=== PATIENT | male | born 1960 | race Two or more races ===

== ENCOUNTER → 2017-05-19 | Outpatient (CLI) | payer BC ==
[2017-05-19 13:40] LABS: HEPATITIS B SURFACE ANTIBODY NEGATIVE (POSITIVE)
[2017-05-19 20:15] LABS: ALBUMIN 3.8 GM/DL (3.2-5.2); ALBUMIN/GLOBULIN RATIO 0.95 (1.00-1.93); ALKALINE PHOSPHATASE 86 U/L (45-117); ALT/SGPT 112 U/L (12-78); AST/SGOT 60 U/L (7-37); BILIRUBIN,DIRECT 0.1 MG/DL (0.0-0.2); BILIRUBIN,TOTAL 0.4 MG/DL (0.2-1.0); BLOOD UREA NITROGEN 38 MG/DL (7-18); CREATININE FOR GFR 1.37 MG/DL (0.70-1.30); FERRITIN 174 NG/ML (26-388); GLOMERULAR FILTRATION RATE 56.8 (>56); PERCENT SATURATION 14.4 % (19.7-50.0); TOTAL IRON BINDING CAPACITY 438 UG/DL (250-450); TOTAL PROTEIN 7.8 GM/DL (6.4-8.2)
[2017-05-26 14:13] LABS: ALPHA 1 ANTITRYPSIN 153 mg/dL (90-200); ALPHA 2-MACROGLOBULIN 274 mg/dL (110-276); ALT 110 IU/L (0-55); APOLIPOPROTEIN A-1 178 mg/dL (101-178); FIBROSIS SCORE 0.45 (0.00-0.21); FIBROSIS STAGE F1-F2 (.); GGT 182 IU/L (0-65); HAPTOGLOBIN 58 mg/dL (34-200); HEPATITIS C QUANTITATION HCV Not Detected IU/mL (.); NECROINFLAM SCORE 0.66 (0.00-0.17); NECROINFLAMM GRADE A3-Severe activity (.); TOTAL BILIRUBIN 0.2 mg/dL (0.0-1.2)
== END ==
LOC: M LAB 08:00
DX: R94.5 Abnormal results of liver function studies (principal)
CPT/HCPCS: 84460

== ENCOUNTER → 2017-07-29 | Outpatient (REF) | payer BC ==
[2017-07-29 18:28] LABS: APPEARANCE, URINE CLEAR (CLEAR); BACTERIA, URINE AUTO NEGATIVE (NEGATIVE); BILIRUBIN, URINE AUTO NEGATIVE (NEGATIVE); BLOOD, URINE BLOOD NEGATIVE (NEGATIVE); COLOR, URINE YELLOW (YELLOW); GLUCOSE, URINE (UA) AUTO 1+ mg/dL (NEGATIVE); KETONE, URINE AUTO NEGATIVE (NEGATIVE); LEUKOCYTE ESTERASE, URINE AUTO NEGATIVE (NEGATIVE); MUCUS, URINE SMALL (NEGATIVE); NITRITE, URINE AUTO NEGATIVE (NEGATIVE); PROTEIN, URINE AUTO NEGATIVE (NEGATIVE); RBC, URINE AUTO 3 /HPF (0-3); SPECIFIC GRAVITY URINE AUTO 1.023 (1.002-1.035); SQUAMOUS EPITHELIAL CELL UR AU 0 /HPF (0-6); UROBILINOGEN, URINE AUTO 0.2 mg/dL (0.0-2.0); WBC, URINE AUTO 0 /HPF (0-3)
== END ==
LOC: M SMT 17:08
DX: R30.0 Dysuria (principal)
CPT/HCPCS: 81001

== ENCOUNTER 2017-08-11 17:54 | Emergency (ER) | payer BC | END 2017-08-11 20:35 | disposition left against medical advice (07) | LOC: M ED 17:54 | DX: N50.812 Left testicular pain (principal); N50.3 Cyst of epididymis; N43.3 Hydrocele, unspecified; E11.9 Type 2 diabetes mellitus without complications; F41.9 Anxiety disorder, unspecified; F32.9 Major depressive disorder, single episode, unspecified; K76.0 Fatty (change of) liver, not elsewhere classified; K21.9 Gastro-esophageal reflux disease without esophagitis; M19.90 Unspecified osteoarthritis, unspecified site; Z86.19 Personal history of other infectious and parasitic diseases; N45.1 Epididymitis; Z53.21 Procedure and treatment not carried out due to patient leaving prior to being seen by health care provider; Z79.82 Long term (current) use of aspirin; Z79.84 Long term (current) use of oral hypoglycemic drugs; Z79.899 Other long term (current) drug therapy; Z88.8 Allergy status to other drugs, medicaments and biological substances | CPT/HCPCS: 76870 ==

== ENCOUNTER 2017-08-25 09:08 | Day surgery (SDC) | payer BC ==
[2017-08-25] MEDS ORDERED: PROPOFOL 500 MG/50 ML VIAL As Ordered (09:51)
[2017-08-25] MEDS ORDERED: LIDOCAINE 2% INJ 100 MG/5 ML SDV (FOR ANES.) As Ordered (09:51)
[2017-08-25] MEDS: NS 1,000 ML IV (09:55)
[2017-08-25] MEDS ORDERED: fentaNYL 100 MCG/2 ML INJECTION (J3010) As Ordered (10:36)
== END 2017-08-25 12:30 | disposition home or self-care (01) ==
LOC: M OPP 09:08
DX: Z12.11 Encounter for screening for malignant neoplasm of colon (principal); D12.0 Benign neoplasm of cecum; D12.3 Benign neoplasm of transverse colon; D12.7 Benign neoplasm of rectosigmoid junction; K57.30 Diverticulosis of large intestine without perforation or abscess without bleeding; K64.8 Other hemorrhoids; K21.0 Gastro-esophageal reflux disease with esophagitis; K22.8 Other specified diseases of esophagus; K29.70 Gastritis, unspecified, without bleeding; R10.9 Unspecified abdominal pain; I10 Essential (primary) hypertension; E11.9 Type 2 diabetes mellitus without complications; K76.0 Fatty (change of) liver, not elsewhere classified; Z86.19 Personal history of other infectious and parasitic diseases; R12 Heartburn; F41.9 Anxiety disorder, unspecified; M19.90 Unspecified osteoarthritis, unspecified site; N40.1 Benign prostatic hyperplasia with lower urinary tract symptoms; N45.1 Epididymitis; F17.220 Nicotine dependence, chewing tobacco, uncomplicated; Z88.8 Allergy status to other drugs, medicaments and biological substances; Z79.82 Long term (current) use of aspirin; Z79.899 Other long term (current) drug therapy; Z79.84 Long term (current) use of oral hypoglycemic drugs
CPT/HCPCS: 45385

== ENCOUNTER → 2018-03-06 | Outpatient (CLI) | payer OTHER, BC | LOC: M PLARAD 13:28 | DX: M76.01 Gluteal tendinitis, right hip (principal) | CPT/HCPCS: 73721 ==

== ENCOUNTER → 2018-05-26 | Outpatient (CLI) | payer BC ==
[~2018-05-26] MED LIST: AMOX500T PO; ASPI1TAB PO; CHLO25TA PO; CLIN150C14 PO; GABA-1171 PO; GLIM4TAB PO; IBUP-1022 PO; LISI40TA PO; METF10004 PO; OMEP40CA2 PO; VITA500T PO; [UNRECOGNIZED DRUG - CODE] PO
--- NOTE | 2018-05-26 07:42 | REP ---
Clinical: Right upper quadrant pain. Technique: Real time chowdhury scale ultrasound examination using curved array transducer. Findings: Liver demonstrates increased echotexture suggesting fatty infiltration and/or hepatocellular disease without focal hepatic lesion identified. Spleen and pancreas are normal in contour, size, echogenicity without focal splenic or pancreatic lesion identified. No splenomegaly. Gallbladder suggests adenomyomatosis without wall thickening, gallstones, or pericholecystic fluid. No biliary ductal dilatation is appreciated and the common bile duct measures 5.9 mm diameter. The bilateral kidneys are normal in reniform shape without hydronephrosis. Right kidney measures 12.7 x 6.4 x 6.8 cm. Left kidney measures 12.4 x 4.6 x 6.2 cm. Abdominal aorta is incompletely evaluated due to interposed bowel gas and body habitus. No obvious ascites. Impression: 1. Hepatocellular disease and/or fatty infiltration to the liver without obvious focal hepatic lesion identified. 2. Gallbladder adenomyomatosis suggested. Electronically Signed by Blas Damon MD 05/26/2018 07:35 A
== END ==
LOC: M RAD 06:20
PROVIDERS: ATTEND Internal Medicine Gastroenterology
DX: R10.11 Right upper quadrant pain (principal); K76.0 Fatty (change of) liver, not elsewhere classified

== ENCOUNTER 2018-08-05 09:40 | Inpatient (IN) | payer BC ==
[~2018-08-05] VITALS: Ht 157.5 cm; Wt 73.8 kg
[2018-08-05] MEDS ORDERED: ARIP1TAB6 (09:49)
[2018-08-05] MEDS ORDERED: FLUO60TA3 PO (09:49)
[2018-08-05 10:49] LABS: HEMATOCRIT 42.5 % (42.0-52.0); HEMOGLOBIN 14.6 g/dl (13.5-17.5); MEAN CORPUSCULAR HEMOGLOBIN 28.5 pg (27.0-33.0); MEAN CORPUSCULAR HGB CONC 34.4 g/dl (32.0-36.5); PLATELET COUNT, AUTOMATED 316 10^3/uL (150-450); RED BLOOD COUNT 5.12 10^6/uL (4.30-6.10); WHITE BLOOD COUNT 8.6 10^3/uL (4.0-10.0)
[2018-08-05 11:13] LABS: AMPHETAMINES LEVEL URINE NEGATIVE (NEGATIVE); BARBITURATES URINE NEGATIVE (NEGATIVE); BENZODIAZEPINES URINE NEGATIVE (NEGATIVE); CANNABINOIDS URINE NEGATIVE (NEGATIVE); COCAINE METABOLITE URINE NEGATIVE (NEGATIVE); METHADONE URINE NEGATIVE (NEGATIVE); OPIATES URINE NEGATIVE (NEGATIVE); PHENCYCLIDINE URINE NEGATIVE (NEGATIVE)
[2018-08-05 11:17] LABS: ACETAMINOPHEN LEVEL < 2.0 UG/ML (10.0-30.0); ALT/SGPT 98 U/L (12-78); BILIRUBIN,DIRECT 0.2 MG/DL (0.0-0.2); BILIRUBIN,TOTAL 0.5 MG/DL (0.2-1.0); BLOOD UREA NITROGEN 31 MG/DL (7-18); CALCIUM LEVEL 9.1 MG/DL (8.5-10.1); CARBON DIOXIDE LEVEL 29 MEQ/L (21-32); CHLORIDE LEVEL 100 MEQ/L (98-107); CREATININE FOR GFR 1.44 MG/DL (0.70-1.30); ETHYL ALCOHOL (ETHANOL) 0.006 % (0.000-0.010); GLOMERULAR FILTRATION RATE 53.5 (>56); GLUCOSE, FASTING 151 MG/DL (70-100); POTASSIUM SERUM 3.6 MEQ/L (3.5-5.1); SALICYLATE LEVEL 1.8 MG/DL (5.0-30.0); SODIUM LEVEL 137 MEQ/L (136-145); TOTAL PROTEIN 7.5 GM/DL (6.4-8.2)
[2018-08-05] MEDS ORDERED: ARIP15TAB PO (13:09)
[2018-08-05] MEDS ORDERED: GABA-1171 PO (13:09)
[2018-08-05] MEDS ORDERED: LORA0.5T11 PO (13:10)
[2018-08-05] MEDS ORDERED: LORazepam 0.5 MG TAB PO ONE (14:30)
[2018-08-05] MEDS ORDERED: MAALOX 30 ML SUSP *UDC PO PRN (15:15)
[2018-08-05] MEDS ORDERED: MOM 30ML SUSPENSION UDC PO PRN (15:15)
[2018-08-05] MEDS ORDERED: IBUPROFEN 400 MG TAB PO PRN (17:00)
[2018-08-05] MEDS ORDERED: GLUCAGON FOR INJ 1 MG VIAL (J1610) SC PRN (17:00)
[2018-08-05] MEDS ORDERED: DEXTROSE 50% 50 ML SYRINGE IV PRN (17:00)
[2018-08-05] MEDS ORDERED: GLUCOSE 4 GM CHEW TABLET PO PRN (17:00)
[2018-08-05] MEDS: HumaLOG INSULIN (NovoLOG) PER UNIT SC SCH ×2 (17:30→21:00)
[2018-08-05 17:42] VITALS: BP 145/76
[2018-08-05] MEDS: metFORMIN (GLUCOPHAGE) 1000 MG TABLET PO SCH ×2 (17:54→17:56)
[2018-08-05] MEDS ORDERED: ARIPiprazole 15 MG TAB (AbiLIFY) PO SCH (21:00)
[2018-08-05] MEDS: traZODone 50 MG TAB PO PRN (21:55)
[2018-08-05] MEDS: LORazepam 0.5 MG TAB PO PRN (21:55)
[2018-08-06 06:25] VITALS: BP 141/82
[2018-08-06] MEDS: HumaLOG INSULIN (NovoLOG) PER UNIT SC SCH ×4 (06:37→21:00)
[2018-08-06] MEDS ORDERED: GLIMEPIRIDE 2 MG TAB PO SCH (07:30)
[2018-08-06] MEDS: metFORMIN (GLUCOPHAGE) 1000 MG TABLET PO SCH (08:32)
[2018-08-06] MEDS: ASPIRIN 81 MG ENTERIC TAB PO SCH (08:32)
[2018-08-06] MEDS: NICOTINE 21MG/24HR 1 EA TRANSDERMAL TD SCH (08:35)
[2018-08-06] MEDS ORDERED: OMEPRAZOLE 20 MG CAP PO SCH (09:00)
[2018-08-06] MEDS ORDERED: CHLORTHALIDONE 25 MG TAB PO SCH (09:00)
[2018-08-06] MEDS ORDERED: FLUoxetine 20 MG CAP PO SCH (09:00)
[2018-08-06] MEDS: LORazepam 0.5 MG TAB PO PRN (09:57)
--- NOTE | 2018-08-06 10:27 | HPEPDOC ---
[facility] Medical History & Physical Date of Admission Aug 05, 2018 History and Physical PCP: Daniel RAI ATTENDING: Dr.Nazeel Marie HPI: 58yoM admitted to [facility] for unspecified depressive disorder, being medically examined today. The patient states repeatedly he has a lot of anxiety and depression. States this has been making him feel confused. Patient states he takes gabapentin for pain. The patient reports abdominal discomfort which has been diffuse. He denies nausea or vomiting. Denies diarrhea or constipation. Denies urinary complaints including dysuria, frequency, urgency or hematuria. Denies back pain. Denies any fevers, chills, weakness, fatigue, MURILLO, CP, SOB, cough, palpitations, or changes in bowel habits. PMHx: Anxiety Depression History of SI NIDDM Fatty liver History of hepatitis C GERD Hypertension Chronic pain CKD baseline 1.3-1.4. 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 ROS: As noted in HPI, otherwise 11pt ROS of systems reviewed and unremarkable. PE: GEN: 58 yo M, appears stated age. Well-nourished, well developed. No acute distress. Alert and oriented x 3. Rapid, pressured speech. Tangential. HEENT: Normocephalic, atraumatic. Pupils are equal, round, and reactive to light. Extraocular movements are intact. No nystagmus appreciated. Sclera are nonicteric. Conjunctiva without injection. Nose midline. Nasal turbinates without bogginess. EACs both patent BL. TMs both visualized and chowdhury with good cone of light, no bulging or erythema. No facial asymmetry. Moist mucous membranes. Dentition fair. Pharynx pink and moist, no cobblestoning. Neck supple, trachea midline. No lymphadenopathy or thyromegaly appreciated. CHEST: Regular rate and rhythm, +S1, +S2 LUNGS: Clear to auscultation bilaterally. No wheezes, rales, or rhonchi. Breathing appears symmetric and easy. Patient is speaking in full sentences. No accessory muscle use. ABD: Protuberant,Round. Soft, mild tenderness is noted diffusely across upper abdomen, non-distended. +Bowel sounds throughout. No rebound or guarding. No costovertebral angle tenderness. EXT: Pulses 2+ bilaterally dorsalis pedis and radial. No lower extremity edema appreciated. SKIN: [place], dry, warm. Capillary refill <2sec. No rashes. NEURO: Alert and oriented x 3. Cranial nerves III-XII are intact. No focal deficits appreciated. EKG: pending A&P: 58yoM admitted to [facility] for unspecified depressive disorder 1. Psych. Plan per Psychiatry. Obtain baseline EKG to assure the safety of psychiatric medications as they can prolong the QT interval. Pt stating he is feeling confused with all of his anxiety and depression. Possibly consider CTH. No prior imaging is noted. 2. Nicotine dependence. Patch available. 3. Hypertension. Pt received chlorthalidone 25 mg this AM, will HOLD in AM and recheck BMP. BP 134-141. Blood pressure is reasonably controlled. No signs of fluid overload at this time. 4. NIDDM. Consistent carbohydrate diet. HOLD metformin and glimepiride. Pt with BS of 44 1740 hrs 08/05 and SCr today is 1.58 with GFR 48. Continue aspirin 81 mg daily. Sliding scale insulin before meals/at bedtime. Monitor fingerstick blood sugar. Monitor BMP. A1c 06/27 is noted to be 9.5. 5. GERD. Discontinue Prilosec. Trial of Protonix 40 mg by mouth twice a day as patient is reporting abdominal discomfort. Monitor. 6. CKD3. Baseline serum creatinine appears to be 1.3-1.4. GFR 53.5. Monitor BMP. Avoid nephrotoxic medications. Avoid NSAID. 7. Abdominal pain. Patient is afebrile. No leukocytosis on admission labs. Update CBC/CMP. Check lipase. Request UA with reflex culture. Check CT scan abdomen/pelvis without contrast. Increase PPI to BID as above. Monitor. 8. Transaminitis/H/O fatty Liver. LFTs appear to be at baseline. History of hepatitis C as per chart. HCV negative 05/25. Hepatitis profile pending. Abd U/S 05/26 1. Hepatocellular disease and/or fatty infiltration to the liver without obvious focal hepatic lesion identified. 2. Gallbladder adenomyomatosis suggested. Electronically Signed by Blas Damon MD 05/26/2018 07:[address] scan abdomen/pelvis as above. 9. Follow up with PCP on discharge. 10. Staff member Paresh present throughout exam. Vital Signs Vital Signs Date Time Temp Pulse Resp B/P (MAP) Pulse Ox O2 Delivery O2 Flow Rate FiO2 08/06/18 06:25 99.6 87 16 141/82 (101) 08/05/18 17:42 95 08/05/18 17:00 Room Air Laboratory Data Labs 24H Laboratory Tests 2 08/05/18 10:27: Nucleated Red Blood Cells % (auto) 0.0, Anion Gap 8, Glomerular Filtration Rate 53.5L, Calcium Level 9.1, Aspartate Amino Transf (AST/SGOT) 44H, Alanine Aminotransferase (ALT/SGPT) 98H, Alkaline Phosphatase 74, Total Bilirubin 0.5, Direct Bilirubin 0.2, Total Protein 7.5, Albumin 4.0, Albumin/Globulin Ratio 1.14, Thyroid Stimulating Hormone (TSH) 1.110, Salicylates Level 1.8L, Urine Amphetamines Screen NEGATIVE, Urine Benzodiazepines Screen NEGATIVE, Urine Opiates Screen NEGATIVE, Urine Methadone Screen NEGATIVE, Acetaminophen Level < 2.0L, Urine Barbiturates Screen NEGATIVE, Urine Phencyclidine Screen NEGATIVE, Urine Cocaine Metabolite Screen NEGATIVE, Urine Cannabinoids Screen NEGATIVE, Ethyl Alcohol Level 0.006 08/05/18 17:40: Bedside Glucose (Misc Panel) 44L 08/05/18 21:53: Bedside Glucose (Misc Panel) 123H CBC/BMP Laboratory Tests 08/05/18 10:27 Red Blood Count 5.12, Mean Corpuscular Volume 83.0, Mean Corpuscular Hemoglobin 28.5, Mean Corpuscular Hemoglobin Concent 34.4, Red Cell Distribution Width 12.6 Home Medications Scheduled (Fluoxetine Hydrochloride) 60 Mg Tab, 60 MG PO DAILY Aripiprazole (Aripiprazole) 15 Mg Tab, 15 MG PO QHS Aspirin (Aspirin 81) 81 Mg Tab, 81 MG PO DAILY Chlorthalidone (Chlorthalidone) 25 Mg Tab, 25 MG PO DAILY Gabapentin (Gabapentin) 100 Mg Cap, 200 MG PO TID Glimepiride (Glimepiride) 4 Mg Tab, 4 MG PO DAILY Metformin Hydrochloride (Metformin HCl) 1,000 Mg Tab, 1,000 MG PO BID Omeprazole (Omeprazole) 40 Mg Cap, 40 MG PO DAILY Scheduled PRN Lorazepam (Lorazepam) 0.5 Mg Tab, 0.5 MG PO BID PRN for ANXIETY Allergies Coded Allergies: Nitroglycerin (Verified Adverse Reaction, Intermediate, significant hypotension, 08/11/17) Anu Santamaria Aug 06, 2018 10:27
[2018-08-06 10:58] LABS: HEMATOCRIT 40.2 % (42.0-52.0); HEMOGLOBIN 13.8 g/dl (13.5-17.5); MEAN CORPUSCULAR HEMOGLOBIN 28.6 pg (27.0-33.0); MEAN CORPUSCULAR HGB CONC 34.3 g/dl (32.0-36.5); MEAN CORPUSCULAR VOLUME 83.2 fl (80.0-96.0); PLATELET COUNT, AUTOMATED 275 10^3/uL (150-450); RED BLOOD COUNT 4.83 10^6/uL (4.30-6.10); WHITE BLOOD COUNT 8.6 10^3/uL (4.0-10.0)
[2018-08-06 11:29] LABS: ALBUMIN 3.6 GM/DL (3.2-5.2); ALT/SGPT 98 U/L (12-78); BILIRUBIN,TOTAL 0.4 MG/DL (0.2-1.0); BLOOD UREA NITROGEN 29 MG/DL (7-18); CALCIUM LEVEL 9.1 MG/DL (8.5-10.1); CARBON DIOXIDE LEVEL 28 MEQ/L (21-32); CHLORIDE LEVEL 100 MEQ/L (98-107); CREATININE FOR GFR 1.58 MG/DL (0.70-1.30); GLUCOSE, FASTING 258 MG/DL (70-100); LIPASE 151 U/L (73-393); POTASSIUM SERUM 3.4 MEQ/L (3.5-5.1); SODIUM LEVEL 138 MEQ/L (136-145); TOTAL PROTEIN 7.1 GM/DL (6.4-8.2)
[2018-08-06] MEDS ORDERED: POTASSIUM CHLORIDE 10 MEQ SR TABLET PO ONE (12:30)
--- NOTE | 2018-08-06 13:46 | REP ---
CT Head without contrast HISTORY: Abdominal pain COMPARISON: None There is no intraparenchymal hemorrhage, acute infarct, mass or midline shift. The ventricular system is normal in appearance. There is no extra cerebral collection. There is no fracture. The visualized sinuses are clear. Soft tissue swelling is present over the right parietal bone at the vertex. IMPRESSION: There is no intracranial lesion. Electronically Signed by Isaac Beckham MD 08/06/2018 01:38 P
--- NOTE | 2018-08-06 13:56 | REP ---
Clinical: Abdominal pain. Technique: Axial noncontrast images from the lung bases to the pubic symphysis with coronal and sagittal re-formations. Comparison: 06/10/2018. Findings: Lung bases are clear. Liver, spleen, pancreas, gallbladder, bilateral adrenal glands and kidneys are relatively normal / stable. Mild chronic-appearing perinephric stranding noted without hydronephrosis or nephrolithiasis. The enteric system is without obstruction or acute inflammatory process. Normal terminal ileum and appendix identified in the right lower quadrant. Colonic and sigmoid diverticulosis noted without acute diverticulitis. Pelvis demonstrates normal bladder and age appropriate prostate/seminal vesicles. Fat containing right inguinal hernia noted. No ascites. No free air. No significant adenopathy. Abdominal aorta without aneurysm. Musculoskeletal structures demonstrate degenerative changes without focal osseous abnormality. Impression: 1. No acute abdominopelvic pathology appreciated. 2. Diverticulosis without acute diverticulitis. 3. Degenerative changes of the thoracolumbar spine and sacroiliac joints. Electronically Signed by Blas Damon MD 08/06/2018 01:47 P
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
[2018-08-06] MEDS ORDERED: VENLAFAXINE **XR** 75MG CAPSULE PO ONE (14:15)
[2018-08-06] MEDS ORDERED: BREXPIPRAZOLE 0.5MG TABLET (REXULTI) PO ONE (15:00)
[2018-08-06 18:00] VITALS: BP 138/88
[2018-08-06] MEDS: traZODone 50 MG TAB PO PRN (21:47)
[2018-08-06] MEDS: hydrOXYzine 50 MG TAB PO PRN (21:47)
[2018-08-06] MEDS: PANTOPRAZOLE 40MG TAB (PROTONIX) PO SCH (21:48)
[2018-08-07 06:07] VITALS: BP 155/83
[2018-08-07] MEDS: HumaLOG INSULIN (NovoLOG) PER UNIT SC SCH ×4 (06:55→20:39)
[2018-08-07] MEDS ORDERED: VENLAFAXINE **XR** 75MG CAPSULE PO SCH (09:00)
[2018-08-07 09:08] LABS: ALBUMIN 3.7 GM/DL (3.2-5.2); BILIRUBIN,TOTAL 0.5 MG/DL (0.2-1.0); CALCIUM LEVEL 9.4 MG/DL (8.5-10.1); CREATININE FOR GFR 1.66 MG/DL (0.70-1.30); GLOMERULAR FILTRATION RATE 45.4 (>56)
--- NOTE | 2018-08-07 09:21 | IPNPDOC ---
Date Seen The patient was seen on 08/07/18. Progress Note HPI: 58yoM admitted to [facility] for unspecified depressive disorder, being medically examined today. The patient states repeatedly he has a lot of anxiety and depression. States this has been making him feel confused. Patient states he takes gabapentin for pain. The patient does not report any further abdominal pain this AM. He denies nausea or vomiting. Denies diarrhea or constipation. Denies urinary complaints including dysuria, frequency, urgency or hematuria. Denies back pain. Denies any fevers, chills, weakness, fatigue, MURILLO, CP, SOB, cough, palpitations, or changes in bowel habits. PMHx: Anxiety Depression History of SI NIDDM Fatty liver History of hepatitis C GERD Hypertension Chronic pain CKD baseline 1.3-1.4. PSHX: Bilateral inguinal hernia repair Vasectomy PE: GEN: 58 yo M, appears stated age. Well-nourished, well developed. Alert and oriented x 3. HEENT: Normocephalic, atraumatic. Sclera are nonicteric. Conjunctiva without injection. No facial asymmetry. Moist mucous membranes. CHEST: Regular rate and rhythm, +S1, +S2 LUNGS: Clear to auscultation bilaterally. No wheezes, rales, or rhonchi. Breathing appears symmetric and easy. ABD: Protuberant,Round. Soft, mild tenderness is noted diffusely across upper abdomen, non-distended. +Bowel sounds throughout. EXT: No lower extremity edema appreciated. SKIN: [place], dry, warm. No rashes. NEURO: Alert and oriented x 3. No focal deficits appreciated. EKG: pending CTH There is no intracranial lesion. Electronically Signed by Isaac Beckham MD 08/06/2018 01:[address] A/P 1. No acute abdominopelvic pathology appreciated. 2. Diverticulosis without acute diverticulitis. 3. Degenerative changes of the thoracolumbar spine and sacroiliac joints. Electronically Signed by Blas Damon MD 08/06/2018 01:47 P A&P: 58yoM admitted to [facility] for unspecified depressive disorder 1. Psych. Plan per Psychiatry. Obtain baseline EKG to assure the safety of psychiatric medications as they can prolong the QT interval. Pt stating he is feeling confused with all of his anxiety and depression. CTH with No abnormality. 2. Nicotine dependence. Patch available. 3. Hypertension. BP 138-155. Chlorthalidone d/cd related to renal function. Pt denies h/o edema. Trial of Norvasc 2.5 mg daily with hold parameter 4. NIDDM. Consistent carbohydrate diet. HOLD metformin and glimepiride. Pt with BS of 44 1740 hrs 08/05 and SCr 08/06 1.58 with GFR 48. Last doses 08/06, this AM Scr 1.66, GFR 45. No further hypoglycemia with FSBS 85-157. Continue aspirin 81 mg daily. Sliding scale insulin before meals/at bedtime. Monitor fingerstick blood sugar. Monitor BMP. A1c 06/27 is noted to be 9.5. 5. GERD. Discontinue Prilosec. Protonix 40 mg by mouth twice a day related to abdominal discomfort. Monitor. 6. CKD3. Baseline serum creatinine appears to be 1.3-1.4. GFR 53.5. 1.66 this AM with GFR 45. HOLD Metformin/Chlorthalidone. Last doses 08/06/18. Monitor BMP. Avoid nephrotoxic medications. Avoid NSAID. 7. Abdominal pain. Improved. Patient is afebrile. No leukocytosis. Monitor CBC/CMP. lipase WNL. UA unremarkable. CT scan abdomen/pelvis without acute changes. Increased PPI to BID as above. Monitor. 8. Transaminitis/H/O fatty Liver. LFTs appear to be at baseline. History of hepatitis C as per chart. HCV negative 05/25. Hepatitis profile pending. Abd U/S 05/26 1. Hepatocellular disease and/or fatty infiltration to the liver without obvious focal hepatic lesion identified. 2. Gallbladder adenomyomatosis suggested. Electronically Signed by Blas Damon MD 05/26/2018 07:[address] scan abdomen/pelvis as above. 9. Follow up with PCP on discharge. 10. Staff member Bill present throughout exam. VS, I&O, 24H, Fishbone Vital Signs/I&O Vital Signs Date Time Temp Pulse Resp B/P (MAP) Pulse Ox O2 Delivery O2 Flow Rate FiO2 08/07/18 06:07 98.9 91 16 155/83 (107) 08/06/18 10:08 Room Air 08/05/18 17:42 95 Laboratory Data 24H LABS Laboratory Tests 2 08/06/18 09:58: Urine Color YELLOW, Urine Appearance CLEAR, Urine pH 5.0, Urine Specific [place] 1.016, Urine Protein NEGATIVE, Urine Glucose (UA) NEGATIVE, Urine Ketones NEGA TIVE, Urine Blood 1+H, Urine Nitrite NEGATIVE, Urine Bilirubin NEGATIVE, Urine Urobilinogen 0.2, Urine Leukocyte Esterase NEGATIVE, Urine WBC (Auto) 0, Urine RBC (Auto) 3, Urine Hyaline Casts (Auto) 0, Urine Bacteria (Auto) NEGATIVE, Urine Squamous Epithelial Cells 2, Urine Sperm (Auto) 08/06/18 10:34: Nucleated Red Blood Cells % (auto) 0.0, Anion Gap 10, Glomerular Filtration Rate 48.0L, Blood Urea Nitrogen 29H, Creatinine 1.58H, Sodium Level 138, Potassium Level 3.4L, Chloride Level 100, Carbon Dioxide Level 28, Calcium Level 9.1, Aspartate Amino Transf (AST/SGOT) 43H, Alanine Aminotransferase (ALT/SGPT) 98H, Alkaline Phosphatase 76, Total Bilirubin 0.4, Total Protein 7.1, Albumin 3.6, Albumin/Globulin Ratio 1.03, Lipase 151 08/06/18 12:11: Bedside Glucose (Misc Panel) 145H 08/06/18 17:59: Bedside Glucose (Misc Panel) 85 08/07/18 06:50: Bedside Glucose (Misc Panel) 157H 08/07/18 08:15: Anion Gap 7L, Glomerular Filtration Rate 45.4L, Blood Urea Nitrogen 28H, Creatinine 1.66H, Sodium Level 139, Potassium Level 4.0, Chloride Level 101, Carbon Dioxide Level 31, Calcium Level 9.4, Aspartate Amino Transf (AST/SGOT) 51H, Alanine Aminotransferase (ALT/SGPT) 105H, Alkaline Phosphatase 72, Total Bilirubin 0.5, Total Protein 7.0, Albumin 3.7, Albumin/Globulin Ratio 1.12 CBC/BMP Laboratory Tests 08/06/18 10:34 Red Blood Count 4.83, Mean Corpuscular Volume 83.2, Mean Corpuscular Hemoglobin 28.6, Mean Corpuscular Hemoglobin Concent 34.3, Red Cell Distribution Width 12.5, Calcium Level 9.1, Aspartate Amino Transf (AST/SGOT) 43 H, Alanine Aminotransferase (ALT/SGPT) 98 H, Alkaline Phosphatase 76, Total Bilirubin 0.4, Total Protein 7.1, Albumin 3.6 08/07/18 08:15 Calcium Level 9.4, Aspartate Amino Transf (AST/SGOT) 51 H, Alanine Aminotransf erase (ALT/SGPT) 105 H, Alkaline Phosphatase 72, Total Bilirubin 0.5, Total Protein 7.0, Albumin 3.7 Anu Santamaria Aug 07, 2018 09:21
[2018-08-07] MEDS: PANTOPRAZOLE 40MG TAB (PROTONIX) PO SCH ×2 (10:10→20:38)
[2018-08-07] MEDS: ASPIRIN 81 MG ENTERIC TAB PO SCH (10:10)
[2018-08-07] MEDS: BREXPIPRAZOLE 0.5MG TABLET (REXULTI) PO SCH (10:10)
[2018-08-07] MEDS: NICOTINE 21MG/24HR 1 EA TRANSDERMAL TD SCH (10:11)
[2018-08-07 10:13] LABS: HEPATITIS B SURFACE ANTIGEN NEGATIVE (NEGATIVE)
[2018-08-07] MEDS: hydrOXYzine 50 MG TAB PO PRN ×2 (10:37→16:58)
[2018-08-07 10:40] LABS: HEPATITIS B CORE ANTIBODY IGM NEGATIVE (NEGATIVE); HEPATITIS C VIRUS ABY INDEX < 0.0 INDEX (<0.8)
[2018-08-07 10:43] LABS: HEPATITIS A ANTIBODY IGM NEGATIVE (NEGATIVE)
--- NOTE | 2018-08-07 12:52 | MHIPNPDOC ---
[facility] Progress Note Progress Note DATE OF SERVICE: 08/07/18 HISTORY: Patient is a 58 -year-old , male, with a history of depression and admission [facility] 2002 for SI who present to ED with his friend endorsing worsening anxiety and depression for the past 2 months and on-and-off thoughts of SI/HI although nonspecific. Pt in the ED endorsing helplessness, hopelessness, occasional confusion, anhedonia, apathy ("I just don't care anymore"), avolition (no shower in 1wk, not wanting to get out of bed), isolation (not wanting to leave home, talk to anyone on phone), anxiety with hypervigilance and restlessness. Pt admitted to several psychosocial stressors including going thru 3rd divorce, living alone and "hate it" past 2yrs, possibility of loosing home, inability to work. Denies having a current psychiatric provider stating "I have a lot of friends, but shut them out except for him (friend in ED)." Pt's PCP is Dr. Daniel Hussein in [place] who prescribes him prozac, abilify, and ativan. VITAL SIGNS: See below. NEW TEST RESULTS: See below CURRENT MEDICATIONS: See below. MENTAL STATUS EXAMINATION: General Appearance: unkempt, disheveled, appears stated age, hospital scubs/clothing Build: overweight Demeanor: withdrawn, very figety Eye Contact: fair Activity: anxious Behavior: cooperative, restless, withdrawn Speech: spontaneous, reg/rate,rhythm,volume, other (hard of hearing) Mood: depressed, anxious Mood "I don't feel that bad today" Affect: constricted, flat, appropriate, anxious Thought Process: logical/linear, depressed, intact Thought Content (Delusions): denies SI, HI, AVH Thought Content (Other): preoccupied, appropriate Thought Content (Aggressive): none reported Perception (Hallucinations): none reported Perception (Other): none reported Cognition (Impairment of): attention/concentration Cognition(Intelligence Est.): average Oriented: Awake, Alert, Oriented times three Insight: poor Judgment: Poor Psychosis: Denies Diagnoses Major depressive d/o recurrent severe w/o psychosis R/O BRENDA vs PTSD ASSESSMENT: Patient says that "the cold outside is driving me nuts, I work outside", "I'm going through a divorce, financial struggles"..... He says he feels a big pressure/weight has been lifted from his chest. He says he feels there's not much to do in here and I remind him there's plenty of groups he can attend, besides he can go to the [employer] to watch TV, mingle with other people. Agrees to an increase in medication and to be started on Gabapentin MANAGEMENT PLAN: Gabapentin 300 mgs PO TID Brexpriprazole 1 mg PO daily Effexor 150 mgs daily Atarax 50 mgs PO Q6H PRN for anxiety Lorazepan 0.5 mgs PO BID for anxiety TIME SPENT: 20 minutes. Vital Signs Vital Signs Date Time Temp Pulse Resp B/P (MAP) Pulse Ox O2 Delivery O2 Flow Rate FiO2 08/07/18 10:10 99 123/77 08/07/18 06:07 98.9 16 08/06/18 10:08 Room Air 08/05/18 17:42 95 Laboratory Data 24H Labs Laboratory Tests 2 08/06/18 17:59: Bedside Glucose (Misc Panel) 85 08/07/18 06:50: Bedside Glucose (Misc Panel) 157H 08/07/18 08:15: Anion Gap 7L, Glomerular Filtration Rate 45.4L, Blood Urea Nitrogen 28H, Creatinine 1.66H, Sodium Level 139, Potassium Level 4.0, Chloride Level 101, Carbon Dioxide Level 31, Calcium Level 9.4, Aspartate Amino Transf (AST/SGOT) 51H, Alanine Aminotransferase (ALT/SGPT) 105H, Alkaline Phosphatase 72, Total Bilirubin 0.5, Total Protein 7.0, Albumin 3.7, Albumin/Globulin Ratio 1.12 CBC/BMP Laboratory Tests 08/07/18 08:15 Calcium Level 9.4, Aspartate Amino Transf (AST/SGOT) 51 H, Alanine Aminotransferase (ALT/SGPT) 105 H, Alkaline Phosphatase 72, Total Bilirubin 0.5, Total Protein 7.0, Albumin 3.7 Current Medications Current Medications Al Hydrox/Mg Hydrox/Simethicone (Mylanta) 30 ml Q4HP PRN PO HEARTBURN/INDIGESTION; Start 08/05/18 at 15:15 Amlodipine Besylate (Norvasc) 2.5 mg DAILY PO Last administered on 08/07/18at 10:10; Start 08/07/18 at 09:00 Aripiprazole (AbiLIFY) 15 mg QHS PO Last administered on 08/05/18at 21:55; Start 08/05/18 at 21:00; Stop 08/06/18 at 14:16; Status DC Aspirin (Ecotrin) 81 mg DAILY PO Last administered on 08/07/18at 10:10; Start 08/06/18 at 09:00 Brexpiprazole (Rexulti) 1 mg DAILY PO Last administered on 08/07/18at 10:10; Start 08/07/18 at 09:00 Chlorthalidone (Hygroton) 25 mg DAILY PO Last administered on 08/06/18at 10:44; Start 08/06/18 at 09:00; Stop 08/06/18 at 12:30; Status DC Dextrose (Dextrose 50%) 25 ml ASDIRECTED PRN IV SEE LABEL COMMENTS; Start 08/05/18 at 17:00 Fluoxetine HCl (PROzac) 60 mg DAILY PO Last administered on 08/06/18at 08:33; Start 08/06/18 at 09:00; Stop 08/06/18 at 14:16; Status DC Glimepiride (Amaryl) 4 mg DAILY@0730 PO Last administered on 08/06/18at 06:47; Start 08/06/18 at 07:30; Stop 08/06/18 at 12:27; Status DC Glucagon (Glucagon) 1 mg ASDIRECTED PRN SC SEE LABEL COMMENTS; Start 08/05/18 at 17:00 Glucose (Glucose) 16 GM ASDIRECTED PRN PO SEE LABEL COMMENTS; Start 08/05/18 at 17:00 Home Med (Med Rec Complete!) ASDIRECTED XX ; Start 08/05/18 at 13:15; Stop 08/05/18 at 13:24; Status DC Hydroxyzine HCl (Atarax) 50 mg Q6HP PRN PO ANXIETY/AGITATION Last administered on 08/07/18at 10:37; Start 08/06/18 at 14:15 Ibuprofen (Advil) 400 mg BIDP PRN PO PAIN; Start 08/05/18 at 17:00; Stop 07/11 01/25 at 10:27; Status DC Insulin Human Lispro (HumaLOG INSULIN) SEE PROTOCOL TABLE QHS SC ; Start 08/05/18 at 21:00 Insulin Human Lispro (HumaLOG INSULIN) See Protocol Table AC SC Last administered on 08/07/18 06:55; Start 08/05/18 at 17:30 Lorazepam (Ativan) 0.5 mg BIDP PRN PO ANXIETY Last administered on 08/06/18 09:57; Start 08/05/18 at 19:15; Stop 08/06/18 at 14:16; Status DC Magnesium Hydroxide (Milk Of Magnesia) 30 ml DAILYPRN PRN PO CONSTIPATION; Start 08/05/18 at 15:15 Metformin HCl (Glucophage) 1,000 mg BID@18 PO Last administered on 08/06/18 08:32; Start 08/05/18 at 18:00; Stop 08/06/18 at 12:27; Status DC Nicotine (Nicoderm Cq 21mg) 1 patch DAILY TD Last administered on 08/07/18 10:11; Start 08/06/18 at 09:00 Omeprazole (PriLOSEC) 40 mg DAILY PO Last administered on 08/06/18 08:32; Start 08/06/18 at 09:00; Stop 08/06/18 at 10:27; Status DC Pantoprazole Sodium (Protonix) 40 mg BID PO Last administered on 08/07/18 10:10; Start 08/06/18 at 21:00 Trazodone HCl (Desyrel) 50 mg QHSP PRN PO INSOMNIA Last administered on 08/06/18at 21:47; Start 08/05/18 at 15:15 Venlafaxine HCl (Effexor Xr) 75 mg DAILY PO Last administered on 08/07/18 10:10; Start 08/07/18 at 09:00 Allergies Coded Allergies: Nitroglycerin (Verified Adverse Reaction, Intermediate, significant hypotension, 08/11/17) CARLOS BERMUDEZ MD Aug 07, 2018 12:20
--- NOTE | 2018-08-07 14:13 | ECGEPIP ---
Stationary ECG Study [facility] Test Date: 2018-08-06 Pat Name: MOIRA JAIN Department: Room: [place] [address] Gender: M Glaze Maker: NICOLE : 1960 Requested By: Anu Santamaria Order Number: [id number] Reading MD: Adriel Miner Measurements Intervals [place] Rate: 81 P: 53 NE: 141 QRS: 13 QRSD: 90 T: 28 QT: 386 QTc: 450 Interpretive Statements SINUS RHYTHM NONSPECIFIC ST-T ABNORMALITY No prior ECG available for comparison at the time of interpretation. Electronically Signed On 08-07-2018 14:12:40 EST by Adriel Miner
[2018-08-07] MEDS: GABAPENTIN 300 MG CAP PO SCH ×2 (15:59→20:38)
[2018-08-07 18:00] VITALS: BP 136/87
[2018-08-07] MEDS: traZODone 50 MG TAB PO PRN (20:38)
[2018-08-08 06:00] VITALS: BP 144/74
[2018-08-08] MEDS: HumaLOG INSULIN (NovoLOG) PER UNIT SC SCH ×4 (06:47→21:00)
[2018-08-08 08:31] LABS: CALCIUM LEVEL 9.3 MG/DL (8.5-10.1); CREATININE FOR GFR 1.5 MG/DL (0.70-1.30); POTASSIUM SERUM 4.1 MEQ/L (3.5-5.1)
[2018-08-08] MEDS: NICOTINE 21MG/24HR 1 EA TRANSDERMAL TD SCH (09:48)
[2018-08-08] MEDS: GABAPENTIN 300 MG CAP PO SCH ×3 (09:49→20:27)
[2018-08-08] MEDS: PANTOPRAZOLE 40MG TAB (PROTONIX) PO SCH ×2 (09:49→20:27)
[2018-08-08] MEDS: ASPIRIN 81 MG ENTERIC TAB PO SCH (09:49)
[2018-08-08] MEDS: VENLAFAXINE **XR** 75MG CAPSULE PO SCH (09:49)
[2018-08-08] MEDS: BREXPIPRAZOLE 0.5MG TABLET (REXULTI) PO SCH (09:50)
[2018-08-08] MEDS ORDERED: BISACODYL 5 MG TAB PO PRN (17:15)
--- NOTE | 2018-08-08 17:15 | MHIPNPDOC ---
[facility] Progress Note Progress Note DATE OF SERVICE: 08/08/18 HISTORY: Patient is a 58 -year-old , male, with a history of depression and admission [facility] 2002 for SI who present to ED with his friend endorsing worsening anxiety and depression for the past 2 months and on-and-off thoughts of SI/HI although nonspecific. Pt in the ED endorsing helplessness, hopelessness, occasional confusion, anhedonia, apathy ("I just don't care anymore"), avolition (no shower in 1wk, not wanting to get out of bed), isolation (not wanting to leave home, talk to anyone on phone), anxiety with hypervigilance and restlessness. Pt admitted to several psychosocial stressors including going thru 3rd divorce, living alone and "hate it" past 2yrs, possibility of loosing home, inability to work. Denies having a current psychiatric provider stating "I have a lot of friends, but shut them out except for him (friend in ED)." Pt's PCP is Dr. Daniel Hussein in [place] who prescribes him prozac, abilify, and ativan. VITAL SIGNS: See below. NEW TEST RESULTS: See below CURRENT MEDICATIONS: See below. MENTAL STATUS EXAMINATION: General Appearance: unkempt, disheveled, appears stated age, hospital scubs/clothing, laying in bed, sleeping, TW awakened him Build: overweight Demeanor: withdrawn, less restless Eye Contact: fair Activity: calm Behavior: cooperative, withdrawn Speech: spontaneous, reg/rate,rhythm,volume, other (hard of hearing) Mood: depressed Mood "I'm feeling better" Affect: congruent, sad/depressed Thought Process: logical/linear, depressed, intact Thought Content (Delusions): denies SI, HI, AVH Thought Content (Other): preoccupied, appropriate Thought Content (Aggressive): none reported Perception (Hallucinations): none reported Perception (Other): none reported Cognition (Impairment of): attention/concentration Cognition(Intelligence Est.): average Oriented: Awake, Alert, Oriented times three Insight: poor Judgment: Poor Psychosis: Denies Diagnoses Major depressive d/o recurrent severe w/o psychosis R/O BRENDA vs PTSD ASSESSMENT: patient is still feeling depressed but he is focusing on the outside factors that have contributed to it. He says he has not elaine able to go to the bathroom for almost two days and he wants some relief. This ad writer ordered Dulcolax 10 mgs PO daily PRN for constipation. MANAGEMENT PLAN: Gabapentin 300 mgs PO TID Brexpriprazole 1 mg PO daily Effexor 150 mgs daily Atarax 50 mgs PO Q6H PRN for anxiety Lorazepan 0.5 mgs PO BID for anxiety Dulcolax 10 mgs PO daily PRN for constipation TIME SPENT: 20 minutes. Vital Signs Vital Signs Date Time Temp Pulse Resp B/P (MAP) Pulse Ox O2 Delivery O2 Flow Rate FiO2 08/08/18 10:01 Room Air 08/08/18 09:00 110 101/69 08/08/18 06:00 98.0 14 08/05/18 17:42 95 Laboratory Data 24H Labs Laboratory Tests 2 08/07/18 20:36: Bedside Glucose (Misc Panel) 143H 08/08/18 06:01: Bedside Glucose (Misc Panel) 137H 08/08/18 07:33: Anion Gap 6L, Glomerular Filtration Rate 51.0L, Blood Urea Nitrogen 25H, Creatinine 1.50H, Sodium Level 140, Potassium Level 4.1, Chloride Level 99, Carbon Dioxide Level 35H, Calcium Level 9.3 08/08/18 11:58: Bedside Glucose (Misc Panel) 213H 08/08/18 16:57: Bedside Glucose (Misc Panel) 184H CBC/BMP Laboratory Tests 08/08/18 07:33 Calcium Level 9.3 Current Medications Current Medications Al Hydrox/Mg Hydrox/Simethicone (Mylanta) 30 ml Q4HP PRN PO HEARTBURN/INDIGES TION; Start 08/05/18 at 15:15 Amlodipine Besylate (Norvasc) 2.5 mg DAILY PO Last administered on 08/07/18at 10:10; Start 08/07/18 at 09:00 Aripiprazole (AbiLIFY) 15 mg QHS PO Last administered on 08/05/18at 21:55; Start 08/05/18 at 21:00; Stop 08/06/18 at 14:16; Status DC Aspirin (Ecotrin) 81 mg DAILY PO Last administered on 08/08/18at 09:49; Start 08/06/18 at 09:00 Brexpiprazole (Rexulti) 1 mg DAILY PO Last administered on 08/08/18at 09:50; Start 08/07/18 at 09:00 Chlorthalidone (Hygroton) 25 mg DAILY PO Last administered on 08/06/18at 10:44; Start 08/06/18 at 09:00; Stop 08/06/18 at 12:30; Status DC Dextrose (Dextrose 50%) 25 ml ASDIRECTED PRN IV SEE LABEL COMMENTS; Start 08/05/18 at 17:00 Fluoxetine HCl (PROzac) 60 mg DAILY PO Last administered on 08/06/18at 08:33; Start 08/06/18 at 09:00; Stop 08/06/18 at 14:16; Status DC Gabapentin (Neurontin) 300 mg TID PO Last administered on 08/08/18at 15:48; Start 08/07/18 at 16:00 Glimepiride (Amaryl) 4 mg DAILY@0730 PO Last administered on 08/06/18at 06:47; Start 08/06/18 at 07:30; Stop 08/06/18 at 12:27; Status DC Glucagon (Glucagon) 1 mg ASDIRECTED PRN SC SEE LABEL COMMENTS; Start 08/05/18 at 17:00 Glucose (Glucose) 16 GM ASDIRECTED PRN PO SEE LABEL COMMENTS; Start 08/05/18 at 17:00 Home Med (Med Rec Complete!) ASDIRECTED XX ; Start 08/05/18 at 13:15; Stop 08/05/18 at 13:24; Status DC Hydroxyzine HCl (Atarax) 50 mg Q6HP PRN PO ANXIETY/AGITATION Last administered on 08/07/18at 16:58; Start 08/06/18 at 14:15 Ibuprofen (Advil) 400 mg BIDP PRN PO PAIN; Start 08/05/18 at 17:00; Stop 08/06/18 at 10:27; Status DC Insulin Human Lispro (HumaLOG INSULIN) SEE PROTOCOL TABLE QHS SC ; Start 08/05/18 at 21:00 Insulin Human Lispro (HumaLOG INSULIN) See Protocol Table AC SC Last administered on 08/08/18at 17:00; Start 08/05/18 at 17:30 Lorazepam (Ativan) 0.5 mg BIDP PRN PO ANXIETY Last administered on 08/06/18 09:57; Start 08/05/18 at 19:15; Stop 08/06/18 at 14:16; Status DC Magnesium Hydroxide (Milk Of Magnesia) 30 ml DAILYPRN PRN PO CONSTIPATION; Start 08/05/18 at 15:15 Metformin HCl (Glucophage) 1,000 mg BID@08,18 PO Last administered on 08/06/18 08:32; Start 08/05/18 at 18:00; Stop 08/06/18 at 12:27; Status DC Nicotine (Nicoderm Cq 21mg) 1 patch DAILY TD Last administered on 08/08/18 09:48; Start 08/06/18 at 09:00 Omeprazole (PriLOSEC) 40 mg DAILY PO Last administered on 08/06/18 08:32; Start 08/06/18 at 09:00; Stop 08/06/18 at 10:27; Status DC Pantoprazole Sodium (Protonix) 40 mg BID PO Last administered on 08/08/18 09:49; Start 08/06/18 at 21:00 Trazodone HCl (Desyrel) 50 mg QHSP PRN PO INSOMNIA Last administered on 08/07/18 20:38; Start 08/05/18 at 15:15 Venlafaxine HCl (Effexor Xr) 75 mg DAILY PO Last administered on 08/07/18 10:10; Start 08/07/18 at 09:00; Stop 08/07/18 at 12:29; Status DC Venlafaxine HCl (Effexor Xr) 150 mg DAILY PO Last administered on 08/08/18 09:49; Start 08/08/18 at 09:00 Allergies Coded Allergies: Nitroglycerin (Verified Adverse Reaction, Intermediate, significant hypotension, 08/11/17) CARLOS BERMUDEZ MD Aug 08, 2018 17:15
[2018-08-08 18:07] VITALS: BP 127/60
[2018-08-08] MEDS: traZODone 50 MG TAB PO PRN (20:28)
[2018-08-09 06:30] VITALS: BP 115/79
[2018-08-09] MEDS: HumaLOG INSULIN (NovoLOG) PER UNIT SC SCH ×4 (06:35→20:52)
[2018-08-09 08:02] LABS: CREATININE FOR GFR 1.54 MG/DL (0.70-1.30); GLOMERULAR FILTRATION RATE 49.5 (>56); POTASSIUM SERUM 3.8 MEQ/L (3.5-5.1)
[2018-08-09] MEDS: ASPIRIN 81 MG ENTERIC TAB PO SCH (10:11)
[2018-08-09] MEDS: BREXPIPRAZOLE 0.5MG TABLET (REXULTI) PO SCH (10:12)
[2018-08-09] MEDS: VENLAFAXINE **XR** 75MG CAPSULE PO SCH (10:12)
[2018-08-09] MEDS: NICOTINE 21MG/24HR 1 EA TRANSDERMAL TD SCH (10:12)
[2018-08-09] MEDS: PANTOPRAZOLE 40MG TAB (PROTONIX) PO SCH ×2 (10:12→20:51)
[2018-08-09] MEDS: GABAPENTIN 300 MG CAP PO SCH ×3 (10:12→20:51)
[2018-08-09 13:23] VITALS: BP 105/61
--- NOTE | 2018-08-09 14:34 | MHIPNPDOC ---
[facility] Progress Note Progress Note DATE OF SERVICE: 08/09/18 HISTORY: Patient is a 58 -year-old , male, with a history of depression and admission [facility] 2002 for SI who present to ED with his friend endorsing worsening anxiety and depression for the past 2 months and on-and-off thoughts of SI/HI although nonspecific. Pt in the ED endorsing helplessness, hopelessness, occasional confusion, anhedonia, apathy ("I just don't care anymore"), avolition (no shower in 1wk, not wanting to get out of bed), isolation (not wanting to leave home, talk to anyone on phone), anxiety with hypervigilance and restlessness. Pt admitted to several psychosocial stressors including going thru 3rd divorce, living alone and "hate it" past 2yrs, possibility of loosing home, inability to work. Denies having a current psychiatric provider stating "I have a lot of friends, but shut them out except for him (friend in ED)." Pt's PCP is Dr. Daniel Hussein in [place] who prescribes him prozac, abilify, and ativan. VITAL SIGNS: See below. NEW TEST RESULTS: See below CURRENT MEDICATIONS: See below. MENTAL STATUS EXAMINATION: General Appearance: unkempt, disheveled, appears stated age, hospital scubs/clothing, laying in bed, sleeping, TW awakened him Build: overweight Demeanor: withdrawn, less restless Eye Contact: fair Activity: calm Behavior: cooperative, less withdrawn Speech: spontaneous, reg/rate,rhythm,volume, other (hard of hearing) Mood: depressed Mood "I think i have a fever because I haven't being going to the bathroom" Affect: congruent, sad/depressed Thought Process: logical/linear, depressed, intact Thought Content (Delusions): denies SI, HI, AVH Thought Content (Other): anxious thoughts about his persoal problems and having to face them when he goes back home Thought Content (Aggressive): none reported Perception (Hallucinations): none reported Perception (Other): none reported Cognition (Impairment of): attention/concentration Cognition(Intelligence Est.): average Oriented: Awake, Alert, Oriented times three Insight: poor Judgment: Poor Psychosis: Denies Diagnoses Major depressive d/o recurrent severe w/o psychosis R/O BRENDA vs PTSD ASSESSMENT: patient is still not going to groups, he remains sleeping in his room most of the day even when we have been encouraging him to go. I explain his problems are still going to be there when he leaves and the pills are nt going to take care of the problems, so, he should learn how to cope, now that he can learn how, by attending groups. he agrees he is going to attend them. MANAGEMENT PLAN: Gabapentin 300 mgs PO TID Brexpriprazole 1 mg PO daily Effexor 150 mgs daily Atarax 50 mgs PO Q6H PRN for anxiety Lorazepan 0.5 mgs PO BID for anxiety Dulcolax 10 mgs PO daily PRN for constipation TIME SPENT: 20 minutes. Vital Signs Vital Signs Date Time Temp Pulse Resp B/P (MAP) Pulse Ox O2 Delivery O2 Flow Rate FiO2 08/09/18 10:12 100 94/52 08/09/18 09:48 Room Air 08/09/18 06:30 99.1 18 08/05/18 17:42 95 Laboratory Data 24H Labs Laboratory Tests 2 08/08/18 11:58: Bedside Glucose (Misc Panel) 213H 08/08/18 16:57: Bedside Glucose (Misc Panel) 184H 08/08/18 20:26: Bedside Glucose (Misc Panel) 171H 08/09/18 06:25: Bedside Glucose (Misc Panel) 168H 08/09/18 07:16: Anion Gap 8, Glomerular Filtration Rate 49.5L, Blood Urea Nitrogen 27H, Creatinine 1.54H, Sodium Level 142, Potassium Level 3.8, Chloride Level 101, Carbon Dioxide Level 33H, Calcium Level 9.0 CBC/BMP Laboratory Tests 08/09/18 07:16 Calcium Level 9.0 Current Medications Current Medications Al Hydrox/Mg Hydrox/Simethicone (Mylanta) 30 ml Q4HP PRN PO HEARTBURN/INDIGESTION; Start 08/05/18 at 15:15 Amlodipine Besylate (Norvasc) 2.5 mg DAILY PO Last administered on 08/07/18at 10:10; Start 08/07/18 at 09:00 Aripiprazole (AbiLIFY) 15 mg QHS PO Last administered on 08/05/18at 21:55; Start 08/05/18 at 21:00; Stop 08/06/18 at 14:16; Status DC Aspirin (Ecotrin) 81 mg DAILY PO Last administered on 08/09/18at 10:11; Start 08/06/18 at 09:00 Bisacodyl (Dulcolax Tab) 10 mg DAILYPRN PRN PO CONSTIPATION; Start 08/08/18 at 17:15 Brexpiprazole (Rexulti) 1 mg DAILY PO Last administered on 08/09/18at 10:12; Start 08/07/18 at 09:00 Chlorthalidone (Hygroton) 25 mg DAILY PO Last administered on 08/06/18at 10:44; Start 08/06/18 at 09:00; Stop 08/06/18 at 12:30; Status DC Dextrose (Dextrose 50%) 25 ml ASDIRECTED PRN IV SEE LABEL COMMENTS; Start 08/05/18 at 17:00 Fluoxetine HCl (PROzac) 60 mg DAILY PO Last administered on 08/06/18at 08:33; Start 08/06/18 at 09:00; Stop 08/06/18 at 14:16; Status DC Gabapentin (Neurontin) 300 mg TID PO Last administered on 08/09/18at 10:12; Start 08/07/18 at 16:00 Glimepiride (Amaryl) 4 mg DAILY@0730 PO Last administered on 08/06/18at 06:47; Start 08/06/18 at 07:30; Stop 08/06/18 at 12:27; Status DC Glucagon (Glucagon) 1 mg ASDIRECTED PRN SC SEE LABEL COMMENTS; Start 08/05/18 at 17:00 Glucose (Glucose) 16 GM ASDIRECTED PRN PO SEE LABEL COMMENTS; Start 08/05/18 at 17:00 Home Med (Med Rec Complete!) ASDIRECTED XX ; Start 08/05/18 at 13:15; Stop 08/05/18 at 13:24; Status DC Hydroxyzine HCl (Atarax) 50 mg Q6HP PRN PO ANXIETY/AGITATION Last administered on 08/07/18at 16:58; Start 08/06/18 at 14:15 Ibuprofen (Advil) 400 mg BIDP PRN PO PAIN; Start 08/05/18 at 17:00; Stop 08/06/18 at 10:27; Status DC Insulin Human Lispro (HumaLOG INSULIN) SEE PROTOCOL TABLE QHS SC ; Start 08/05/18 at 21:00 Insulin Human Lispro (HumaLOG INSULIN) See Protocol Table AC SC Last administered on 08/09/18 06:35; Start 08/05/18 at 17:30 Lorazepam (Ativan) 0.5 mg BIDP PRN PO ANXIETY Last administered on 08/06/18 09:57; Start 08/05/18 at 19:15; Stop 08/06/18 at 14:16; Status DC Magnesium Hydroxide (Milk Of Magnesia) 30 ml DAILYPRN PRN PO CONSTIPATION; Start 08/05/18 at 15:15 Metformin HCl (Glucophage) 1,000 mg BID@ PO Last administered on 08/06/18 08:32; Start 08/05/18 at 18:00; Stop 08/06/18 at 12:27; Status DC Nicotine (Nicoderm Cq 21mg) 1 patch DAILY TD Last administered on 08/09/18 10:12; Start 08/06/18 at 09:00 Omeprazole (PriLOSEC) 40 mg DAILY PO Last administered on 08/06/18 08:32; Start 08/06/18 at 09:00; Stop 08/06/18 at 10:27; Status DC Pantoprazole Sodium (Protonix) 40 mg BID PO Last administered on 08/09/18 10:12; Start 08/06/18 at 21:00 Trazodone HCl (Desyrel) 50 mg QHSP PRN PO INSOMNIA Last administered on 08/08/18 20:28; Start 08/05/18 at 15:15 Venlafaxine HCl (Effexor Xr) 75 mg DAILY PO Last administered on 08/07/18 10:10; Start 08/07/18 at 09:00; Stop 08/07/18 at 12:29; Status DC Venlafaxine HCl (Effexor Xr) 150 mg DAILY PO Last administered on 08/09/18 10:12; Start 08/08/18 at 09:00 Allergies Coded Allergies: Nitroglycerin (Verified Adverse Reaction, Intermediate, significant hypotension, 08/11/17) CARLOS BERMUDEZ MD Aug 09, 2018 11:02
[2018-08-09 18:05] VITALS: BP 118/79
[2018-08-09] MEDS: traZODone 50 MG TAB PO PRN (20:52)
[2018-08-10 06:00] VITALS: BP 130/84
[2018-08-10] MEDS: HumaLOG INSULIN (NovoLOG) PER UNIT SC SCH ×4 (06:40→21:00)
[2018-08-10 08:45] LABS: CALCIUM LEVEL 9.1 MG/DL (8.5-10.1); CREATININE FOR GFR 1.48 MG/DL (0.70-1.30); GLOMERULAR FILTRATION RATE 51.8 (>56); POTASSIUM SERUM 3.8 MEQ/L (3.5-5.1)
[2018-08-10] MEDS: NICOTINE 21MG/24HR 1 EA TRANSDERMAL TD SCH (09:11)
[2018-08-10] MEDS: ASPIRIN 81 MG ENTERIC TAB PO SCH (09:12)
[2018-08-10] MEDS: PANTOPRAZOLE 40MG TAB (PROTONIX) PO SCH ×2 (09:12→21:22)
[2018-08-10] MEDS: BREXPIPRAZOLE 0.5MG TABLET (REXULTI) PO SCH (09:12)
[2018-08-10] MEDS: VENLAFAXINE **XR** 75MG CAPSULE PO SCH (09:12)
[2018-08-10] MEDS: GABAPENTIN 300 MG CAP PO SCH ×3 (09:12→21:21)
--- NOTE | 2018-08-10 10:14 | IPNPDOC ---
Date Seen The patient was seen on 08/10/18. Progress Note HPI: 58yoM admitted to [facility] for unspecified depressive disorder, being medically examined today. The patient states repeatedly he has a lot of anxiety and depression. States this has been making him feel confused. Patient states he takes gabapentin for pain. The patient does not report any further abdominal pain. He denies nausea or vomiting. Reports he has some constipation. Denies diarrhea. States he is eating and drinking well. Denies urinary complaints including dysuria, frequency, urgency or hematuria. Denies back pain. Denies any fevers, chills, weakness, fatigue, MURILLO, CP, SOB, cou gh, palpitations, or changes in bowel habits. PMHx: Anxiety Depression History of SI NIDDM Fatty liver History of hepatitis C GERD Hypertension Chronic pain CKD baseline 1.3-1.4. PSHX: Bilateral inguinal hernia repair Vasectomy PE: GEN: 58 yo M, appears stated age. Well-nourished, well developed. Alert and oriented x 3. HEENT: Normocephalic, atraumatic. Sclera are nonicteric. Conjunctiva without injection. No facial asymmetry. Moist mucous membranes. CHEST: Regular rate and rhythm, +S1, +S2 LUNGS: Clear to auscultation bilaterally. No wheezes, rales, or rhonchi. Breathing appears symmetric and easy. ABD: Protuberant,Round. Soft, NT, non-distended. +Bowel sounds throughout. EXT: No lower extremity edema appreciated. SKIN: [place], dry, warm. No rashes. NEURO: Alert and oriented x 3. No focal deficits appreciated. EKG: SINUS RHYTHM NONSPECIFIC ST-T ABNORMALITY No prior ECG available for comparison at the time of interpretation. Electronically Signed On 08-07-2018 14:12:40 EST by Adriel Miner [facility] There is no intracranial lesion. Electronically Signed by Isaac Beckham MD 08/06/2018 01:[address] A/P 1. No acute abdominopelvic pathology appreciated. 2. Diverticulosis without acute diverticulitis. 3. Degenerative changes of the thoracolumbar spine and sacroiliac joints. Electronically Signed by Blas Damon MD 08/06/2018 01:47 P A&P: 58yoM admitted to [facility] for unspecified depressive disorder 1. Psych. Plan per Psychiatry. EKG on file. CT with No abnormality. 2. Nicotine dependence. Patch available. 3. Hypertension. BP 106-130 Chlorthalidone d/cd related to renal function. Pt denies h/o edema. C/W Norvasc 2.5 mg daily with hold parameter <120. 4. NIDDM. Consistent carbohydrate diet. HOLD metformin SCr 08/06 1.58 with GFR 48. HOLD glimepiride. Pt with BS of 44 1740 hrs 08/05 Last doses 08/06. No further hypoglycemia with FSBS 168-226. Continue aspirin 81 mg daily. Sliding scale insulin before meals/at bedtime. Monitor fingerstick blood sugar. Monitor BMP. A1c 06/27 is noted to be 9.5. 5. GERD. Discontinue Prilosec. Protonix 40 mg by mouth twice a day related to abdominal discomfort. Monitor. 6. CKD3. Baseline serum creatinine appears to be 1.3-1.4. GFR 53.5. HOLD Metformin/Chlorthalidone. Last doses 08/06/18. SCr back to baseline this AM SCR 1.48. Monitor BMP. Avoid nephrotoxic medications. Avoid NSAID. 7. Abdominal pain. Resolved. Patient is afebrile. No leukocytosis. Monitor CBC/CMP. lipase WNL. UA unremarkable. CT scan abdomen/pelvis without acute changes. Increased PPI to BID as above. Monitor. 8. Transaminitis/H/O fatty Liver. LFTs appear to be at baseline. History of hepatitis C as per chart. HCV negative 05/25. Hepatitis profile negative. Abd U/S 05/26 1. Hepatocellular disease and/or fatty infiltration to the liver without obvious focal hepatic lesion identified. 2. Gallbladder adenomyomatosis suggested. Electronically Signed by Blas Damon MD 05/26/2018 07:[address] scan abdomen/pelvis as above. 9. Constipation. MOM as needed. Dulcolax as needed. Add Colace 100mg BID. Monitor. 10. Follow up with PCP on discharge. 11. Staff member Paresh present during exam. VS, I&O, 24H, Fishbone Vital Signs/I&O Vital Signs Date Time Temp Pulse Resp B/P (MAP) Pulse Ox O2 Delivery O2 Flow Rate FiO2 08/10/18 09:00 98 106/69 08/10/18 06:00 98.1 18 95 08/09/18 09:48 Room Air Laboratory Data 24H LABS Laboratory Tests 2 08/09/18 11:39: Bedside Glucose (Misc Panel) 226H 08/09/18 17:04: Bedside Glucose (Misc Panel) 228H 08/09/18 20:49: Bedside Glucose (Misc Panel) 169H 08/10/18 06:37: Bedside Glucose (Misc Panel) 182H 08/10/18 07:37: Anion Gap 6L, Glomerular Filtration Rate 51.8L, Blood Urea Nitrogen 29H, Creatinine 1.48H, Sodium Level 140, Potassium Level 3.8, Chloride Level 99, Carbon Dioxide Level 35H, Calcium Level 9.1 CBC/BMP Laboratory Tests 08/10/18 07:37 Calcium Level 9.1 Anu Santamaria Aug 10, 2018 10:14
[2018-08-10] MEDS: DOCUSATE SODIUM 100 MG CAP PO SCH ×2 (10:33→21:22)
--- NOTE | 2018-08-10 17:00 | MHIPNPDOC ---
[facility] Progress Note Progress Note DATE OF SERVICE: 08/10/18 HISTORY: Patient is a 58 -year-old , male, with a history of depression and admission [facility] 2002 for SI who present to ED with his friend endorsing worsening anxiety and depression for the past 2 months and on-and-off thoughts of SI/HI although nonspecific. Pt in the ED endorsing helplessness, hopelessness, occasional confusion, anhedonia, apathy ("I just don't care anymore"), avolition (no shower in 1wk, not wanting to get out of bed), isolation (not wanting to leave home, talk to anyone on phone), anxiety with hypervigilance and restlessness. Pt admitted to several psychosocial stressors including going thru 3rd divorce, living alone and "hate it" past 2yrs, possibility of loosing home, inability to work. Denies having a current psychiatric provider stating "I have a lot of friends, but shut them out except for him (friend in ED)." Pt's PCP is Dr. Daniel Hussein in [place] who prescribes him prozac, abilify, and ativan. VITAL SIGNS: See below. NEW TEST RESULTS: See below CURRENT MEDICATIONS: See below. MENTAL STATUS EXAMINATION: General Appearance: unkempt, disheveled, appears stated age, hospital scubs/clothing, laying in bed, sleeping, TW awakened him Build: overweight Demeanor: withdrawn, less restless Eye Contact: fair Activity: calm Behavior: cooperative, less withdrawn Speech: spontaneous, reg/rate,rhythm,volume, other (hard of hearing) Mood: depressed Mood "I'm still worried about my future" Affect: congruent, sad/depressed Thought Process: logical/linear, depressed, intact Thought Content (Delusions): denies SI, HI, AVH Thought Content (Other): anxious thoughts about his personal problems and having to face them when he goes back home Thought Content (Aggressive): none reported Perception (Hallucinations): none reported Perception (Other): none reported Cognition (Impairment of): attention/concentration Cognition(Intelligence Est.): average Oriented: Awake, Alert, Oriented times three Insight: poor Judgment: Poor Psychosis: Denies Diagnoses Major depressive d/o recurrent severe w/o psychosis R/O BRENDA vs PTSD ASSESSMENT: The patient is still depressed but he is not coping with the fact that he will have to deal with his problems once he leaves the hospital. he continues to minimize his symptoms, although he sees to be a little more alert. will increase Effexor to 225 mgs po daily. MANAGEMENT PLAN: Gabapentin 300 mgs PO TID Brexpriprazole 1 mg PO daily Effexor 225 mgs daily Atarax 50 mgs PO Q6H PRN for anxiety Lorazepan 0.5 mgs PO BID for anxiety Dulcolax 10 mgs PO daily PRN for constipation TIME SPENT: 20 minutes. Vital Signs Vital Signs Date Time Temp Pulse Resp B/P (MAP) Pulse Ox O2 Delivery O2 Flow Rate FiO2 08/10/18 09:00 98 106/69 08/10/18 06:00 98.1 18 95 08/09/18 09:48 Room Air Laboratory Data 24H Labs Laboratory Tests 2 08/09/18 17:04: Bedside Glucose (Misc Panel) 228H 08/09/18 20:49: Bedside Glucose (Misc Panel) 169H 08/10/18 06:37: Bedside Glucose (Misc Panel) 182H 08/10/18 07:37: Anion Gap 6L, Glomerular Filtration Rate 51.8L, Blood Urea Nitrogen 29H, Creatinine 1.48H, Sodium Level 140, Potassium Level 3.8, Chloride Level 99, Carbon Dioxide Level 35H, Calcium Level 9.1 08/10/18 11:52: Bedside Glucose (Misc Panel) 170H CBC/BMP Laboratory Tests 08/10/18 07:37 Calcium Level 9.1 Current Medications Current Medications Al Hydrox/Mg Hydrox/Simethicone (Mylanta) 30 ml Q4HP PRN PO HEARTBURN/INDIGESTION; Start 08/05/18 at 15:15 Amlodipine Besylate (Norvasc) 2.5 mg DAILY PO Last administered on 08/07/18at 10:10; Start 08/07/18 at 09:00 Aripiprazole (AbiLIFY) 15 mg QHS PO Last administered on 08/05/18at 21:55; Start 08/05/18 at 21:00; Stop 08/06/18 at 14:16; Status DC Aspirin (Ecotrin) 81 mg DAILY PO Last administered on 08/10/18at 09:12; Start 08/06/18 at 09:00 Bisacodyl (Dulcolax Tab) 10 mg DAILYPRN PRN PO CONSTIPATION; Start 08/08/18 at 17:15 Brexpiprazole (Rexulti) 1 mg DAILY PO Last administered on 08/10/18at 09:12; Start 08/07/18 at 09:00 Chlorthalidone (Hygroton) 25 mg DAILY PO Last administered on 08/06/18at 10:44; Start 08/06/18 at 09:00; Stop 08/06/18 at 12:30; Status DC Dextrose (Dextrose 50%) 25 ml ASDIRECTED PRN IV SEE LABEL COMMENTS; Start 08/05/18 at 17:00 Docusate Sodium (Colace) 100 mg BID PO Last administered on 08/10/18at 10:33; Start 08/10/18 at 09:00 Fluoxetine HCl (PROzac) 60 mg DAILY PO Last administered on 08/06/18at 08:33; Start 08/06/18 at 09:00; Stop 08/06/18 at 14:16; Status DC Gabapentin (Neurontin) 300 mg TID PO Last administered on 08/10/18at 09:12; Start 08/07/18 at 16:00 Glimepiride (Amaryl) 4 mg DAILY@0730 PO Last administered on 08/06/18at 06:47; Start 08/06/18 at 07:30; Stop 08/06/18 at 12:27; Status DC Glucagon (Glucagon) 1 mg ASDIRECTED PRN SC SEE LABEL COMMENTS; Start 08/05/18 at 17:00 Glucose (Glucose) 16 GM ASDIRECTED PRN PO SEE LABEL COMMENTS; Start 08/05/18 at 17:00 Home Med (Med Rec Complete!) ASDIRECTED XX ; Start 08/05/18 at 13:15; Stop 08/05/18 at 13:24; Status DC Hydroxyzine HCl (Atarax) 50 mg Q6HP PRN PO ANXIETY/AGITATION Last administered on 08/07/18at 16:58; Start 08/06/18 at 14:15 Ibuprofen (Advil) 400 mg BIDP PRN PO PAIN; Start 08/05/18 at 17:00; Stop 08/06/18 at 10:27; Status DC Insulin Human Lispro (HumaLOG INSULIN) SEE PROTOCOL TABLE QHS SC ; Start 08/05 at 21:00 Insulin Human Lispro (HumaLOG INSULIN) See Protocol Table AC SC Last administered on 08/10/18 11:55; Start 08/05/18 at 17:30 Lorazepam (Ativan) 0.5 mg BIDP PRN PO ANXIETY Last administered on 08/06/18 09:57; Start 08/05/18 at 19:15; Stop 08/06/18 at 14:16; Status DC Magnesium Hydroxide (Milk Of Magnesia) 30 ml DAILYPRN PRN PO CONSTIPATION Last administered on 08/09/18 13:21; Start 08/05/18 at 15:15 Metformin HCl (Glucophage) 1,000 mg BID@ PO Last administered on 08/06/18 08:32; Start 08/05/18 at 18:00; Stop 08/06/18 at 12:27; Status DC Nicotine (Nicoderm Cq 21mg) 1 patch DAILY TD Last administered on 08/10/18 09:11; Start 08/06/18 at 09:00 Omeprazole (PriLOSEC) 40 mg DAILY PO Last administered on 08/06/18 08:32; Start 08/06/18 at 09:00; Stop 08/06/18 at 10:27; Status DC Pantoprazole Sodium (Protonix) 40 mg BID PO Last administered on 08/10/18 09:12; Start 08/06/18 at 21:00 Trazodone HCl (Desyrel) 50 mg QHSP PRN PO INSOMNIA Last administered on 08/09/18 20:52; Start 08/05/18 at 15:15 Venlafaxine HCl (Effexor Xr) 75 mg DAILY PO Last administered on 08/07/18 10:10; Start 08/07/18 at 09:00; Stop 08/07/18 at 12:29; Status DC Venlafaxine HCl (Effexor Xr) 150 mg DAILY PO Last administered on 08/10/18 09:12; Start 08/08/18 at 09:00 Allergies Coded Allergies: Nitroglycerin (Verified Adverse Reaction, Intermediate, significant hypotension, 08/11/17) CARLOS BERMUDEZ MD Aug 10, 2018 12:50
[2018-08-10 18:00] VITALS: BP 130/76
[2018-08-10] MEDS: traZODone 50 MG TAB PO PRN (21:22)
[2018-08-11] MEDS: HumaLOG INSULIN (NovoLOG) PER UNIT SC SCH ×4 (06:32→20:39)
[2018-08-11 06:38] VITALS: BP 143/88
[2018-08-11 08:10] VITALS: BP 116/69
[2018-08-11] MEDS: PANTOPRAZOLE 40MG TAB (PROTONIX) PO SCH ×2 (08:11→20:39)
[2018-08-11] MEDS: ASPIRIN 81 MG ENTERIC TAB PO SCH (08:11)
[2018-08-11] MEDS: BREXPIPRAZOLE 0.5MG TABLET (REXULTI) PO SCH (08:11)
[2018-08-11] MEDS: DOCUSATE SODIUM 100 MG CAP PO SCH ×2 (08:11→20:39)
[2018-08-11] MEDS: GABAPENTIN 300 MG CAP PO SCH ×3 (08:11→20:39)
[2018-08-11] MEDS: VENLAFAXINE **XR** 75MG CAPSULE PO SCH (08:11)
[2018-08-11] MEDS: NICOTINE 21MG/24HR 1 EA TRANSDERMAL TD SCH (08:12)
[2018-08-11 09:13] LABS: CALCIUM LEVEL 8.7 MG/DL (8.5-10.1); CREATININE FOR GFR 1.33 MG/DL (0.70-1.30); GLOMERULAR FILTRATION RATE 58.6 (>56); POTASSIUM SERUM 3.9 MEQ/L (3.5-5.1)
--- NOTE | 2018-08-11 09:21 | IPNPDOC ---
Date Seen The patient was seen on 08/11/18. Progress Note HPI: 58yoM admitted to [facility] for unspecified depressive disorder, being medically examined today. The patient states repeatedly he has a lot of anxiety and depression. States this has been making him feel confused. Patient states he takes gabapentin for pain. The patient states he is feeling well and offers no complaints this AM. States he is eating and drinking well. Denies urinary complaints including dysuria, frequency, urgency or hematuria. Denies back pain. Denies any fevers, chills, weakness, fatigue, MURILLO, CP, SOB, cough, palpitations, or changes in bowel habits. PMHx: Anxiety Depression History of SI NIDDM Fatty liver History of hepatitis C GERD Hypertension Chronic pain CKD baseline 1.3-1.4. PSHX: Bilateral inguinal hernia repair Vasectomy PE: GEN: 58 yo M, appears stated age. Well-nourished, well developed. Alert and oriented x 3. HEENT: Normocephalic, atraumatic. Sclera are nonicteric. Conjunctiva without injection. Moist mucous membranes. CHEST: Regular rate and rhythm, +S1, +S2 LUNGS: Clear to auscultation bilaterally. ABD: Protuberant,Round. Soft, NT, non-distended. +Bowel sounds throughout. EXT: No lower extremity edema appreciated. SKIN: No rashes. NEURO: No focal deficits appreciated. EKG: SINUS RHYTHM NONSPECIFIC ST-T ABNORMALITY No prior ECG available for comparison at the time of interpretation. Electronically Signed On 08-07-2018 14:12:40 EST by Adriel Miner [facility] There is no intracranial lesion. Electronically Signed by Isaac Beckham MD 08/06/2018 01:[address] A/P 1. No acute abdominopelvic pathology appreciated. 2. Diverticulosis without acute diverticulitis. 3. Degenerative changes of the thoracolumbar spine and sacroiliac joints. Electronically Signed by Blas Damon MD 08/06/2018 01:47 P A&P: 58yoM admitted to [facility] for unspecified depressive disorder 1. Psych. Plan per Psychiatry. EKG on file. CT with No abnormality. 2. Nicotine dependence. Patch available. 3. Hypertension. BP controlled. Chlorthalidone d/cd related to renal function. Pt denies h/o edema. D/C Norvasc as BP has been controlled without any antihypertensive medication. BP 106-143. 4. NIDDM. Consistent carbohydrate diet. HOLD metformin SCr 08/06 1.58 with GFR 48. HOLD glimepiride. Pt with BS of 44 1740 hrs 08/05 Last doses 08/06. No further hypoglycemia with FSBS 170-209. Continue aspirin 81 mg daily. Sliding scale insulin before meals/at bedtime. Monitor fingerstick blood sugar. Monitor BMP. A1c 06/27 is noted to be 9.5. 5. GERD. Discontinue Prilosec. Protonix 40 mg by mouth twice a day related to abdominal discomfort. Monitor. 6. CKD3. Baseline serum creatinine appears to be 1.3-1.4. GFR 53.5. HOLD Metformin/Chlorthalidone. Last doses 08/06/18. SCr back to baseline this AM SCR 1.33. Avoid nephrotoxic medications. Avoid NSAID. 7. Abdominal pain. Resolved. Patient is afebrile. No leukocytosis. Monitor CBC/CMP. lipase WNL. UA unremarkable. CT scan abdomen/pelvis without acute changes. Increased PPI to BID as above. Monitor. 8. Transaminitis/H/O fatty Liver. LFTs appear to be at baseline. History of hepatitis C as per chart. HCV negative 05/25. Hepatitis profile negative. Abd U/S 05/26 1. Hepatocellular disease and/or fatty infiltration to the liver without obvious focal hepatic lesion identified. 2. Gallbladder adenomyomatosis suggested. Electronically Signed by Blas Damon MD 05/26/2018 07:[address] scan abdomen/pelvis as above. 9. Constipation. MOM as needed. Dulcolax as needed. Colace 100mg BID. Monitor. 10. Follow up with PCP on discharge. 11. Staff member Paresh present during exam VS, I&O, 24H, Pankajbone Vital Signs/I&O Vital Signs Date Time Temp Pulse Resp B/P (MAP) Pulse Ox O2 Delivery O2 Flow Rate FiO2 08/11/18 08:10 96 116/69 08/11/18 06:38 97.7 16 08/10/18 06:00 95 08/09/18 09:48 Room Air Laboratory Data 24H LABS Laboratory Tests 2 08/10/18 11:52: Bedside Glucose (Misc Panel) 170H 08/10/18 17:00: Bedside Glucose (Misc Panel) 181H 08/10/18 21:19: Bedside Glucose (Misc Panel) 207H 08/11/18 06:21: Bedside Glucose (Misc Panel) 209H 08/11/18 06:52: Anion Gap 7L, Glomerular Filtration Rate 58.6, Blood Urea Nitrogen 25H, Creatinine 1.33H, Sodium Level 140, Potassium Level 3.9, Chloride Level 101, Carbon Dioxide Level 32, Calcium Level 8.7 CBC/BMP Laboratory Tests 08/11/18 06:52 Calcium Level 8.7 Anu Santamaria Aug 11, 2018 09:21
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
[2018-08-11 18:13] VITALS: BP 100/64
[2018-08-11] MEDS: traZODone 50 MG TAB PO PRN (20:39)
[2018-08-12 06:16] VITALS: BP 119/91
[2018-08-12] MEDS: HumaLOG INSULIN (NovoLOG) PER UNIT SC SCH ×2 (06:36→11:59)
[2018-08-12] MEDS: ASPIRIN 81 MG ENTERIC TAB PO SCH (09:04)
[2018-08-12] MEDS: GABAPENTIN 300 MG CAP PO SCH (09:04)
[2018-08-12] MEDS: DOCUSATE SODIUM 100 MG CAP PO SCH (09:04)
[2018-08-12] MEDS: VENLAFAXINE **XR** 75MG CAPSULE PO SCH (09:04)
[2018-08-12] MEDS: NICOTINE 21MG/24HR 1 EA TRANSDERMAL TD SCH (09:04)
[2018-08-12] MEDS: BREXPIPRAZOLE 0.5MG TABLET (REXULTI) PO SCH (09:04)
[2018-08-12] MEDS: PANTOPRAZOLE 40MG TAB (PROTONIX) PO SCH (09:04)
[2018-08-12] MEDS ORDERED: HYDRO50TAB PO (13:05)
[2018-08-12] MEDS ORDERED: VENL150C43 PO (13:05)
[2018-08-12] MEDS ORDERED: TRAZO50TA PO (13:05)
[2018-08-12] MEDS ORDERED: ARIP15TAB PO (13:05)
[2018-08-12] MEDS ORDERED: GABA-843 PO (13:05)
[2018-08-12] MEDS ORDERED: NICO21PAT TD (13:05)
[2018-08-12] MEDS ORDERED: REXU1TAB2 PO (13:05)
[2018-08-13] MEDS ORDERED: VENLAFAXINE **XR** 75MG CAPSULE PO SCH (09:00)
--- NOTE | 2018-08-17 21:03 | MHDSPDOC ---
[facility] Discharge Summary Discharge Summary DATE OF ADMISSION: Aug 05, 2018 at 15:08 DATE OF DISCHARGE: Aug 12, 2018 at 14:30 DISCHARGE DIAGNOSES: 1. Major depressive d/o recurrent severe w/o psychosis 2. PTSD 3. BRENDA REASON FOR ADMISSION: Patient is a 58 -year-old , male, with a history of depression and admission [facility] 2002 for SI who present to ED with his friend endorsing worsening anxiety and depression for the past 2 months and on-and-off thoughts of SI/HI although nonspecific. Pt in the ED endorsing helplessness, hopelessness, occasional confusion, anhedonia, apathy ("I just don't care anymore"), avolition (no shower in 1wk, not wanting to get out of bed), isolation (not wanting to leave home, talk to anyone on phone), anxiety with hypervigilance and restlessness. Pt admitted to several psychosocial stressors including going thru 3rd divorce, living alone and "hate it" past 2yrs, possibility of loosing home, inability to work. Denies having a current psyc hiatric provider stating "I have a lot of friends, but shut them out except for him (friend in ED)." Pt's PCP is Dr. Daniel Hussein in [place] who prescribes him prozac, abilify, and ativan. CONSULTANTS INVOLVED: None TREATMENT AND PROGRESS ON THE UNIT : Patient was pleasant and cooperative. He spent several days laying in bed, sleeping or awake with his eyes closed, isolated from other patients and staff. He had multiple stressors, one of them, was his ongoing divorce process with his , that has been going on for several years nos and financial problems due his mortgage payment being increased. He reported high anxiety levels but they improved, just as his depression improved too. He became a little anxious before being discharged because he was not sure how he was going to react when he went back home. He received treatment with brexpriprazole 1 mg po daily, Abilify 15 mgs PO qhs, Effexor 150 mgs po qam, Gabapentin 300 mgs PO TID ( for pain and anxiety). He received Atarax, Trazodone and Ativan PRN. He had a good response to medications HOSPITAL COURSE: As above DISCHARGE ASSESSMENT: Patient was not suicidal, not homicidal and not psychotic at the time of his discharge. His anxiety and depression symptoms had decreased, he was able to look at the positive things in life. He was goal orientated MENTAL STATUS EXAMINATION ON DISCHARGE: General Appearance: His hygiene and grooming has improved, , appears stated age, hospital scubs/clothing, laying in bed, sleeping, TW awakened him Build: overweight Demeanor: withdrawn, less restless Eye Contact: fair Activity: calm Behavior: cooperative, less withdrawn Speech: spontaneous, reg/rate,rhythm,volume, other (hard of hearing) Mood: depressed Mood "I worry because my mortgage is too high" Affect: congruent, sad/depressed Thought Process: logical/linear, coherent. Thought Content (Delusions): denies SI, HI, AVH Thought Content (Other): anxious thoughts about his personal problems and having to face them when he goes back home Thought Content (Aggressive): none reported Perception (Hallucinations): none reported Perception (Other): none reported Cognition (Impairment of): attention/concentration Cognition(Intelligence Est.): average Oriented: Awake, Alert, Oriented times three Insight: improving Judgment: improving Psychosis: Thierno MEDICATIONS ON DISCHARGE: Scheduled Aripiprazole (Aripiprazole) 15 Mg Tab, 15 MG PO QHS for mood, #7 Aspirin (Aspirin 81) 81 Mg Tab, 81 MG PO DAILY, (Reported) Brexpiprazole (Rexulti) 0.5 Mg Tab, 1 MG PO DAILY for MOOD, #7 Chlorthalidone (Chlorthalidone) 25 Mg Tab, 25 MG PO DAILY, (Reported) Gabapentin (Gabapentin) 300 Mg Cap, 300 MG PO TID for PAIN/ANXIETY, #21 Glimepiride (Glimepiride) 4 Mg Tab, 4 MG PO DAILY, (Reported) Metformin Hydrochloride (Metformin HCl) 1,000 Mg Tab, 1,000 MG PO BID, (Reported) Nicotine (Nicotine Transdermal Syst) 21 Mg/24 Hr Dis, 1 PATCH TD DAILY for NICOTINE WITHDRAWALS, #7 Omeprazole (Omeprazole) 40 Mg Cap, 40 MG PO DAILY, (Reported) Venlafaxine Hydrochloride (Venlafaxine HCl ER) 150 Mg Cap, 2 CAP PO DAILY for DEPRESSION/ANXIETY for 7 Days, #14 Scheduled PRN Hydroxyzine HCl (Hydroxyzine HCl) 50 Mg Tab, 50 MG PO Q6HP PRN for ANXIETY/AGITATION, #28 Lorazepam (Lorazepam) 0.5 Mg Tab, 0.5 MG PO BID PRN for ANXIETY, (Reported) Trazodone HCl (Trazodone HCl) 50 Mg Tab, 50 MG PO QHSP PRN for INSOMNIA, #7 PLAN/FOLLOWUP ARRANGEMENTS: Follow Up Care Education Label * Medical * Medical Follow Up [facility] * Established With This Provider Yes * Therapist DR. HUSSEIN * Date Aug 14, 2018 * Time 08:20 * Address of Clinic or Practice [address] [place] [id number] * Follow Up Care Education Label * Mental Health Appt 1 * Mental Health [facility] * Established With This Provider No * Therapist Ada * Date Aug 13, 2018 * Time 11:00 * Address of Clinic or Practice [address] [place] [id number] * The amount of time spent in the coordination of care for this patient was approximately 30 minutes. Vital Signs/I&Os Vital Signs Date Time Temp Pulse Resp B/P (MAP) Pulse Ox O2 Delivery O2 Flow Rate FiO2 08/12/18 06:16 98.7 96 18 119/91 (100) Medications Scheduled Aripiprazole (Aripiprazole) 15 Mg Tab, 15 MG PO QHS for mood, #7 Aspirin (Aspirin 81) 81 Mg Tab, 81 MG PO DAILY, (Reported) Brexpiprazole (Rexulti) 0.5 Mg Tab, 1 MG PO DAILY for MOOD, #7 Chlorthalidone (Chlorthalidone) 25 Mg Tab, 25 MG PO DAILY, (Reported) Gabapentin (Gabapentin) 300 Mg Cap, 300 MG PO TID for PAIN/ANXIETY, #21 Glimepiride (Glimepiride) 4 Mg Tab, 4 MG PO DAILY, (Reported) Metformin Hydrochloride (Metformin HCl) 1,000 Mg Tab, 1,000 MG PO BID, (Reported) Nicotine (Nicotine Transdermal Syst) 21 Mg/24 Hr Dis, 1 PATCH TD DAILY for NICOTINE WITHDRAWALS, #7 Omeprazole (Omeprazole) 40 Mg Cap, 40 MG PO DAILY, (Reported) Venlafaxine Hydrochloride (Venlafaxine HCl ER) 150 Mg Cap, 2 CAP PO DAILY for DEPRESSION/ANXIETY for 7 Days, #14 Scheduled PRN Hydroxyzine HCl (Hydroxyzine HCl) 50 Mg Tab, 50 MG PO Q6HP PRN for ANXIETY/AGITATION, #28 Lorazepam (Lorazepam) 0.5 Mg Tab, 0.5 MG PO BID PRN for ANXIETY, (Reported) Trazodone HCl (Trazodone HCl) 50 Mg Tab, 50 MG PO QHSP PRN for INSOMNIA, #7 Allergies Coded Allergies: Nitroglycerin (Verified Adverse Reaction, Intermediate, significant hypotension, 08/11/17) CARLOS BERMUDEZ MD Aug 17, 2018 20:42
== END 2018-08-12 14:30 | disposition home or self-care (01) | DRG 751 ==
LOC: M ED 09:40 → M ED INP 15:08 → M PSY 17:25
PROVIDERS: ADMIT Psychiatry & Neurology Psychiatry; ATTEND Psychiatry & Neurology Psychiatry
DX: F33.2 Major depressive disorder, recurrent severe without psychotic features (principal); K76.0 Fatty (change of) liver, not elsewhere classified; R45.851 Suicidal ideations; E11.9 Type 2 diabetes mellitus without complications; N18.3 Chronic kidney disease, stage 3 (moderate); F41.1 Generalized anxiety disorder; F43.10 Post-traumatic stress disorder, unspecified; Z79.82 Long term (current) use of aspirin; Z79.899 Other long term (current) drug therapy; Z88.8 Allergy status to other drugs, medicaments and biological substances; K21.9 Gastro-esophageal reflux disease without esophagitis; I12.9 Hypertensive chronic kidney disease with stage 1 through stage 4 chronic kidney disease, or unspecified chronic kidney disease; B18.2 Chronic viral hepatitis C; F17.200 Nicotine dependence, unspecified, uncomplicated; G89.29 Other chronic pain; R10.9 Unspecified abdominal pain

== ENCOUNTER 2018-09-02 09:48 | Inpatient (IN) | payer BC ==
[~2018-09-02] VITALS: Ht 157.5 cm; Wt 77.0 kg
[2018-09-02] MEDS: CHLORTHALIDONE 25 MG TAB PO SCH ×2 (09:00→22:16)
[~2018-09-02 09:48] MED LIST changes: +ARIP1TAB10 PO; +ARIP1TAB6; -ASPI1TAB PO; +ASPI81TA26 PO; +FLUO60TA3 PO; +GABA-843 PO; +HYDRO50TAB PO; +LORA0.5T11 PO; +NICO21PAT TD; +REXU1TAB2 PO; +TRAZO50TA PO; +VENL150C43 PO
[2018-09-02 10:35] LABS: HEMATOCRIT 42.2 % (42.0-52.0); HEMOGLOBIN 14.5 g/dl (13.5-17.5); MEAN CORPUSCULAR HEMOGLOBIN 28.6 pg (27.0-33.0); MEAN CORPUSCULAR HGB CONC 34.4 g/dl (32.0-36.5); MEAN CORPUSCULAR VOLUME 83.2 fl (80.0-96.0); PLATELET COUNT, AUTOMATED 281 10^3/uL (150-450); RED BLOOD COUNT 5.07 10^6/uL (4.30-6.10); WHITE BLOOD COUNT 8.2 10^3/uL (4.0-10.0)
[2018-09-02] MEDS ORDERED: METF10004 PO (11:05)
[2018-09-02] MEDS ORDERED: ASPI81TA26 PO (11:05)
[2018-09-02] MEDS ORDERED: TRAZ-160 PO (11:05)
[2018-09-02] MEDS ORDERED: HYDR50TA70 PO (11:05)
[2018-09-02] MEDS ORDERED: CHLO25TA PO (11:05)
[2018-09-02] MEDS ORDERED: GLIM4TAB PO (11:05)
[2018-09-02] MEDS ORDERED: ABIL1TAB12 PO (11:05)
[2018-09-02] MEDS ORDERED: VENL150C43 PO (11:05)
[2018-09-02] MEDS ORDERED: REXU1TAB3 PO (11:05)
[2018-09-02] MEDS ORDERED: GABA-843 PO (11:05)
[2018-09-02] MEDS ORDERED: OMEP40CA2 PO (11:05)
[2018-09-02 11:18] LABS: ACETAMINOPHEN LEVEL < 2.0 UG/ML (10.0-30.0); ALBUMIN 3.7 GM/DL (3.2-5.2); ALT/SGPT 108 U/L (12-78); BILIRUBIN,DIRECT 0.1 MG/DL (0.0-0.2); BILIRUBIN,TOTAL 0.5 MG/DL (0.2-1.0); BLOOD UREA NITROGEN 26 MG/DL (7-18); CALCIUM LEVEL 8.9 MG/DL (8.5-10.1); CARBON DIOXIDE LEVEL 28 MEQ/L (21-32); CHLORIDE LEVEL 103 MEQ/L (98-107); CREATININE FOR GFR 1.27 MG/DL (0.70-1.30); ETHYL ALCOHOL (ETHANOL) < 0.003 % (0.000-0.010); GLOMERULAR FILTRATION RATE > 60.0 (>56); GLUCOSE, FASTING 334 MG/DL (70-100); POTASSIUM SERUM 3.6 MEQ/L (3.5-5.1); SALICYLATE LEVEL < 1.7 MG/DL (5.0-30.0); SODIUM LEVEL 139 MEQ/L (136-145); TOTAL PROTEIN 6.9 GM/DL (6.4-8.2)
[2018-09-02 11:19] LABS: AMPHETAMINES LEVEL URINE NEGATIVE (NEGATIVE); BARBITURATES URINE NEGATIVE (NEGATIVE); BENZODIAZEPINES URINE NEGATIVE (NEGATIVE); CANNABINOIDS URINE NEGATIVE (NEGATIVE); COCAINE METABOLITE URINE NEGATIVE (NEGATIVE); METHADONE URINE NEGATIVE (NEGATIVE); OPIATES URINE NEGATIVE (NEGATIVE); PHENCYCLIDINE URINE NEGATIVE (NEGATIVE)
[2018-09-02] MEDS ORDERED: ACETAMINOPHEN TAB 650MG DOSE (2X325MG) PO PRN (13:30)
[2018-09-02] MEDS ORDERED: MAALOX 30 ML SUSP *UDC PO PRN (13:30)
[2018-09-02] MEDS ORDERED: MOM 30ML SUSPENSION UDC PO PRN (13:30)
[2018-09-02] MEDS ORDERED: hydrOXYzine 50 MG TAB PO PRN (13:45)
[2018-09-02 14:14] VITALS: BP 171/76
[2018-09-02] MEDS: metFORMIN (GLUCOPHAGE) 1000 MG TABLET PO SCH (17:01)
[2018-09-02] MEDS: GABAPENTIN 300 MG CAP PO SCH ×2 (17:01→22:16)
[2018-09-02] MEDS: ASPIRIN 81 MG ENTERIC TAB PO SCH (17:02)
[2018-09-02] MEDS: BREXPIPRAZOLE 0.5MG TABLET (REXULTI) PO SCH (17:02)
[2018-09-02] MEDS: OMEPRAZOLE 20 MG CAP PO SCH (17:02)
[2018-09-02] MEDS: VENLAFAXINE **XR** 75MG CAPSULE PO SCH (17:03)
[2018-09-02 18:00] VITALS: BP 119/75
[2018-09-03 06:23] VITALS: BP 144/90
[2018-09-03] MEDS: metFORMIN (GLUCOPHAGE) 1000 MG TABLET PO SCH ×2 (08:50→17:02)
[2018-09-03] MEDS: GLIMEPIRIDE 2 MG TAB PO SCH (08:50)
[2018-09-03] MEDS: BREXPIPRAZOLE 0.5MG TABLET (REXULTI) PO SCH ×2 (09:01→22:13)
[2018-09-03] MEDS: CHLORTHALIDONE 25 MG TAB PO SCH (09:01)
[2018-09-03] MEDS: GABAPENTIN 300 MG CAP PO SCH ×3 (09:02→22:13)
[2018-09-03] MEDS: OMEPRAZOLE 20 MG CAP PO SCH (09:02)
[2018-09-03] MEDS: VENLAFAXINE **XR** 75MG CAPSULE PO SCH (09:02)
[2018-09-03] MEDS: NICOTINE 14 MG/24 HR TRANSDERMAL TD SCH (09:02)
[2018-09-03] MEDS: ASPIRIN 81 MG ENTERIC TAB PO SCH (09:02)
--- NOTE | 2018-09-03 10:09 | HPEPDOC ---
[facility] Medical History & Physical Date of Admission Sep 02, 2018 History and Physical PCP: Daniel RAI ATTENDING: Dr.Nazeel Marie HPI: 58yoM admitted to [facility] for unspecified depressive disorder, being medically examined today. Patient states he takes gabapentin for pain. Denies any fevers, chills, weakness, fatigue, MURILLO, CP, SOB, cough, palpitations, abdominal pain or changes in bowel or bladder habits. PMHx: Anxiety Depression History of SI NIDDM Fatty liver History of hepatitis C GERD Hypertension Chronic pain CKD baseline 1.3-1.4. 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 ROS: As noted in HPI, otherwise 11pt ROS of systems reviewed and unremarkable. PE: GEN: 58 yo M, appears stated age. Well-nourished, well developed. No acute distress. Alert and oriented x 3. Anxious appearing. Tangential. HEENT: Normocephalic, atraumatic. Pupils are equal, round, and reactive to light. Extraocular movements are intact. No nystagmus appreciated. Sclera are nonicteric. Conjunctiva without injection. Nose midline. Nasal turbinates without bogginess. EACs both patent BL. TMs both visualized and chowdhury with good cone of light, no bulging or erythema. No facial asymmetry. Moist mucous membra omaira. Dentition fair. Pharynx pink and moist, no cobblestoning. Neck supple, trachea midline. No lymphadenopathy or thyromegaly appreciated. CHEST: Regular rate and rhythm, +S1, +S2 LUNGS: Clear to auscultation bilaterally. No wheezes, rales, or rhonchi. Breathing appears symmetric and easy. Patient is speaking in full sentences. No accessory muscle use. ABD: Protuberant,Round. Soft, NT, non-distended. +Bowel sounds throughout. No rebound or guarding. No costovertebral angle tenderness. EXT: Pulses 2+ bilaterally dorsalis pedis and radial. No lower extremity edema appreciated. SKIN: Ingenio, dry, warm. Capillary refill <2sec. No rashes. NEURO: Alert and oriented x 3. Cranial nerves III-XII are intact. No focal deficits appreciated. EKG: SINUS RHYTHM NONSPECIFIC ST-T ABNORMALITY No prior ECG available for comparison at the time of interpretation. Electronically Signed On 08-07-2018 14:12:40 EST by Adriel Miner [facility] There is no intracranial lesion. Electronically Signed by Isaac Beckham MD 08/06/2018 01:[address] AP 1. No acute abdominopelvic pathology appreciated. 2. Diverticulosis without acute diverticulitis. 3. Degenerative changes of the thoracolumbar spine and sacroiliac joints. Electronically Signed by Blas Damon MD 08/06/2018 01:47 P A&P: 58yoM admitted to [facility] for unspecified depressive disorder 1. Psych. Plan per Psychiatry. Obtain baseline EKG to assure the safety of psychiatric medications as they can prolong the QT interval. 2. Nicotine dependence. Patch available. 3. Hypertension. Pt received chlorthalidone 25 mg this AM. SBP 119-144 Blood pressure is reasonably controlled. No signs of fluid overload at this time. Consider Norvasc pending BP trends. BMP pending. 4. NIDDM. Consistent carbohydrate diet. Continue metformin and glimepiride. Continue aspirin 81 mg daily. Monitor fingerstick blood sugar. 184 this AM. Monitor BMP. SCr 1.27 on Admission. GFR >60. A1c 06/27 is noted to be 9.5. 5. GERD. Continue Prilosec 40 mg po daily. Monitor. 6. CKD3. Baseline serum creatinine appears to be 1.3-1.4. 1.27 on admission. Monitor BMP. Avoid nephrotoxic medications. Avoid NSAID. 7. H/O fatty Liver. LFTs appear to be at baseline. History of hepatitis C as per chart. HCV negative 05/25. Hepatitis profile negative 08/06/18. Abd U/S 05/26 1. Hepatocellular disease and/or fatty infiltration to the liver without obvious focal hepatic lesion identified. 2. Gallbladder adenomyomatosis suggested. Electronically Signed by Blas Damon MD 05/26/2018 07:[address] scan abdomen/pelvis as above. 8. Follow up with PCP on discharge. 9. Staff member Paresh present throughout exam. Vital Signs Vital Signs Date Time Temp Pulse Resp B/P (MAP) Pulse Ox O2 Delivery O2 Flow Rate FiO2 09/03/18 06:23 98.8 73 12 144/90 (108) 09/02/18 14:14 98 09/02/18 09:48 Room Air Laboratory Data Labs 24H Laboratory Tests 2 09/02/18 10:22: Nucleated Red Blood Cells % (auto) 0.0, Anion Gap 8, Glomerular Filtration Rate > 60.0, Calcium Level 8.9, Aspartate Amino Transf (AST/SGOT) 37, Alanine Aminotransferase (ALT/SGPT) 108H, Alkaline Phosphatase 92, Total Bilirubin 0.5, Direct Bilirubin 0.1, Total Protein 6.9, Albumin 3.7, Albumin/Globulin Ratio 1.16, Thyroid Stimulating Hormone (TSH) 1.010, Salicylates Level < 1.7L, Urine Amphetamines Screen NEGATIVE, Urine Benzodiazepines Screen NEGATIVE, Urine Opiates Screen NEGATIVE, Urine Methadone Screen NEGATIVE, Acetaminophen Level < 2.0L, Urine Barbiturates Screen NEGATIVE, Urine Phencyclidine Screen NEGATIVE, Urine Cocaine Metabolite Screen NEGATIVE, Urine Cannabinoids Screen NEGATIVE, Ethyl Alcohol Level < 0.003 09/02/18 16:58: Bedside Glucose (Misc Panel) 181H 09/03/18 06:19: Bedside Glucose (Misc Panel) 184H CBC/BMP Laboratory Tests 09/02/18 10:22 Red Blood Count 5.07, Mean Corpuscular Volume 83.2, Mean Corpuscular Hemoglobin 28.6, Mean Corpuscular Hemoglobin Concent 34.4, Red Cell Distribution Width 12.4 Home Medications Scheduled Aripiprazole (Abilify) 15 Mg Tab, 15 MG PO QHS Aspirin (Aspirin 81) 81 Mg Tab, 81 MG PO DAILY Brexpiprazole (Rexulti) 1 Mg Tab, 1 MG PO DAILY Chlorthalidone (Chlorthalidone) 25 Mg Tab, 25 MG PO DAILY Gabapentin (Gabapentin) 300 Mg Cap, 300 MG PO TID Glimepiride (Glimepiride) 4 Mg Tab, 4 MG PO DAILY Metformin Hydrochloride (Metformin HCl) 1,000 Mg Tab, 1,000 MG PO BID Omeprazole (Omeprazole) 40 Mg Cap, 40 MG PO DAILY Venlafaxine Hydrochloride (Venlafaxine HCl ER) 150 Mg Cap, 300 MG PO DAILY Scheduled PRN Hydroxyzine HCl (Hydroxyzine HCl) 50 Mg Tab, 50 MG PO Q6H PRN for ANXIETY Trazodone HCl (Trazodone HCl) 50 Mg Tab, 50 MG PO QHS PRN for SLEEP Allergies Coded Allergies: nitroglycerin (Verified Allergy, Unknown, 09/02/18) Anu Santamaria Sep 03, 2018 10:09
[2018-09-03 11:16] LABS: BLOOD UREA NITROGEN 22 MG/DL (7-18); CALCIUM LEVEL 9.4 MG/DL (8.5-10.1); CARBON DIOXIDE LEVEL 28 MEQ/L (21-32); CHLORIDE LEVEL 101 MEQ/L (98-107); CREATININE FOR GFR 1.23 MG/DL (0.70-1.30); GLOMERULAR FILTRATION RATE > 60.0 (>56); GLUCOSE, FASTING 223 MG/DL (70-100); SODIUM LEVEL 137 MEQ/L (136-145)
[2018-09-03] MEDS ORDERED: GLUCOSE 4 GM CHEW TABLET PO PRN (11:45)
[2018-09-03] MEDS ORDERED: GLUCAGON FOR INJ 1 MG VIAL (J1610) SC PRN (11:45)
[2018-09-03] MEDS ORDERED: DEXTROSE 50% 50 ML SYRINGE IV PRN (11:45)
[2018-09-03] MEDS: HumaLOG INSULIN (NovoLOG) PER UNIT SC SCH ×2 (12:00→17:03)
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
[2018-09-03 18:00] VITALS: BP 90/60
[2018-09-03] MEDS: ARIPiprazole 10 MG TAB PO SCH (22:14)
[2018-09-04] MEDS: HumaLOG INSULIN (NovoLOG) PER UNIT SC SCH ×3 (06:19→16:58)
[2018-09-04 06:43] VITALS: BP 150/90
[2018-09-04 07:04] LABS: BLOOD UREA NITROGEN 26 MG/DL (7-18); CALCIUM LEVEL 9.4 MG/DL (8.5-10.1); CARBON DIOXIDE LEVEL 29 MEQ/L (21-32); CHLORIDE LEVEL 103 MEQ/L (98-107); GLOMERULAR FILTRATION RATE > 60.0 (>56); GLUCOSE, FASTING 121 MG/DL (70-100); POTASSIUM SERUM 3.8 MEQ/L (3.5-5.1); SODIUM LEVEL 141 MEQ/L (136-145)
[2018-09-04] MEDS: VENLAFAXINE **XR** 75MG CAPSULE PO SCH (09:10)
[2018-09-04] MEDS: metFORMIN (GLUCOPHAGE) 1000 MG TABLET PO SCH ×2 (09:11→17:53)
[2018-09-04] MEDS: GABAPENTIN 300 MG CAP PO SCH ×3 (09:11→22:03)
[2018-09-04] MEDS: ASPIRIN 81 MG ENTERIC TAB PO SCH (09:11)
[2018-09-04] MEDS: GLIMEPIRIDE 2 MG TAB PO SCH (09:11)
[2018-09-04] MEDS: CHLORTHALIDONE 25 MG TAB PO SCH (09:11)
[2018-09-04] MEDS: OMEPRAZOLE 20 MG CAP PO SCH (09:11)
[2018-09-04] MEDS: NICOTINE 14 MG/24 HR TRANSDERMAL TD SCH (09:12)
--- NOTE | 2018-09-04 10:06 | MHIPNPDOC ---
[facility] Progress Note Progress Note DATE OF SERVICE: 09/04/18 HISTORY: Patient is a 58 -year-old , male, with a history of depression and admission [facility] 08/10/18 for depression and SI who present to ED with his friend endorsing worsening anxiety and depression after stopping his regular medication 1wk ago due to lack of motivation and depression and failing to follow-up with appts. Pt in the ED endorsing helplessness, hopelessness, occasional confusion, anhedonia, apathy, avolition (no shower in 1wk, not wanting to get out of bed), isolation (not wanting to leave home, talk to anyone on phone), anxiety. Pt admitted to several psychosocial stressors that are the same as when previously admitted 08/10/18 including going thru 3rd divorce, living alone, possibility of loosing home, inability to work. Pt denied SI in the ED last night. Denied HI, hallucinations, delusions. VITAL SIGNS: See below. NEW TEST RESULTS: See below. CURRENT MEDICATIONS: See below. MENTAL STATUS EXAMINATION: General Appearance: unkempt, disheveled, malodorous, appears stated age, hospital scrubs/clothing Build: overweight Demeanor: withdrawn Eye Contact: fair Activity: slowed Behavior: cooperative, withdrawn Speech: clear, low in volume Mood: depressed, anxious Mood depressed Affect: constricted, flat, congruent, anxious Thought Process: logical/linear, depressed, intact Thought Content (Delusions): none reported, denies SI, HI, AVH Thought Content (Other): none reported, appropriate Thought Content (Aggressive): none reported Perception (Hallucinations): none reported Perception (Other): none reported Cognition (Impairment of): none reported Cognition(Intelligence Est.): average Oriented: Awake, Alert, Oriented times three Insight: poor Judgment: Poor Psychosis: Denies DIAGNOSES: 1. Major depressive d/o recurrent severe w/o psychosis 2. PTSD 3. BRENDA ASSESSMENT:Pt seen and endorses severe depression and anxiety still with no change due to same psychosocial stressors as when previously admitted 08/10/18. Pt states he believes the biggest reason he's depressed is b/c he feels lonely at home and "I hate it at home." Pt encouraged to think of ways to get out of his home and socialize while he's here to improve his loneliness which he states he'll do. He states he's tolerating his medications but has yet to notice an improvement in his symptoms. Pt is isolating in bed and not attending groups or showering and encouraged to go to group and shower as can aid to improve his mood. He endorses hypersomnia, avolition, anhedonia, anxiety, depression. States all he wants to do is go to sleep. States he spends 12-18hrs/day in bed again. Denies SI/HI, hallucinations, delusions. Feels safe here. MANAGEMENT PLAN: continue plan Medications: Rexulti 1.5mg qhs abilify 10mg qhs effexor xr 300mg daily for mood and anxiety TIME SPENT: 30 minutes. Vital Signs Vital Signs Date Time Temp Pulse Resp B/P (MAP) Pulse Ox O2 Delivery O2 Flow Rate FiO2 09/04/18 06:43 98.6 94 14 150/90 (110) 09/02/18 14:14 98 09/02/18 09:48 Room Air Laboratory Data 24H Labs Laboratory Tests 2 09/03/18 10:28: Anion Gap 8, Glomerular Filtration Rate > 60.0, Blood Urea Nitrogen 22H, Creat inine 1.23, Sodium Level 137, Potassium Level 4.0, Chloride Level 101, Carbon Dioxide Level 28, Calcium Level 9.4 09/03/18 12:34: Bedside Glucose (Misc Panel) 117H 09/03/18 17:03: Bedside Glucose (Misc Panel) 82 09/04/18 06:17: Bedside Glucose (Misc Panel) 125H 09/04/18 06:22: Anion Gap 9, Glomerular Filtration Rate > 60.0, Blood Urea Nitrogen 26H, Creatinine 1.30, Sodium Level 141, Potassium Level 3.8, Chloride Level 103, Carbon Dioxide Level 29, Calcium Level 9.4 CBC/BMP Laboratory Tests 09/03/18 10:28 Calcium Level 9.4 09/04/18 06:22 Calcium Level 9.4 Current Medications Current Medications Acetaminophen (Tylenol Tab) 650 mg Q6HP PRN PO HEADACHE or DISCOMFORT; Start 09/02/18 at 13:30 Al Hydrox/Mg Hydrox/Simethicone (Mylanta) 30 ml Q4HP PRN PO HEARTBURN/INDIGESTION; Start 09/02/18 at 13:30 Aripiprazole (AbiLIFY) 10 mg QHS PO Last administered on 09/03/18 22:14; Start 09/03/18 at 21:00 Aripiprazole (AbiLIFY) 15 mg QHS PO Last administered on 09/02/18at 22:16; Start 09/02/18 at 21:00; Stop 09/03/18 at 12:35; Status DC Aspirin (Ecotrin) 81 mg DAILY PO Last administered on 09/04/18 09:11; Start 09/02/18 at 09:00 Brexpiprazole (Rexulti) 1 mg DAILY PO Last administered on 09/03/18 09:01; Start 09/02/18 at 09:00; Stop 09/03/18 at 12:35; Status DC Brexpiprazole (Rexulti) 1.5 mg QHS PO Last administered on 09/03/18 22:13; Start 09/03/18 at 21:00 Chlorthalidone (Hygroton) 25 mg BID PO Last administered on 09/03/18 09:01; Start 09/02/18 at 09:00; Stop 09/03/18 at 10:02; Status DC Chlorthalidone (Hygroton) 25 mg DAILY PO Last administered on 09/04/18 09:11; Start 09/04/18 at 09:00 Dextrose (Dextrose 50%) 25 ml ASDIRECTED PRN IV SEE LABEL COMMENTS; Start 09/03/18 at 11:45 Gabapentin (Neurontin) 300 mg TID PO Last administered on 09/04/18at 09:11; Start 09/02/18 at 16:00 Glimepiride (Amaryl) 4 mg DAILY@0800 PO Last administered on 09/04/18at 09:11; Start 09/03/18 at 08:00 Glucagon (Glucagon) 1 mg ASDIRECTED PRN SC SEE LABEL COMMENTS; Start 09/03/18 at 11:45 Glucose (Glucose) 16 GM ASDIRECTED PRN PO SEE LABEL COMMENTS; Start 09/03/18 at 11:45 Home Med (Med Rec Complete!) ASDIRECTED XX ; Start 09/02/18 at 11:15; Stop 09/02/18 at 11:15; Status DC Hydroxyzine HCl (Atarax) 50 mg Q6HP PRN PO ANXIETY/AGITATION; Start 09/02/18 at 13:45 Insulin Human Lispro (HumaLOG INSULIN) See Protocol Table AC SC ; Start 09/03/18 at 12:00 Magnesium Hydroxide (Milk Of Magnesia) 30 ml DAILYPRN PRN PO CONSTIPATION; Start 09/02/18 at 13:30 Metformin HCl (Glucophage) 1,000 mg BID@0800,1800 PO Last administered on 09/04/18at 09:11; Start 09/02/18 at 18:00 Nicotine (Nicoderm Cq 14mg) 1 patch DAILY TD Last administered on 09/04/18at 09:12; Start 09/03/18 at 09:00 Omeprazole (PriLOSEC) 40 mg DAILY PO Last administered on 09/04/18at 09:11; Start 09/02/18 at 09:00 Trazodone HCl (Desyrel) 50 mg QHSP PRN PO INSOMNIA; Start 09/02/18 at 13:30 Venlafaxine HCl (Effexor Xr) 300 mg DAILY PO Last administered on 09/04/18at 09:10; Start 09/02/18 at 09:00 Allergies Coded Allergies: nitroglycerin (Verified Allergy, Unknown, 09/02/18) ELIECER RUTLEDGE DO Sep 04, 2018 10:06 am
[2018-09-04 18:00] VITALS: BP 104/73
[2018-09-04] MEDS: ARIPiprazole 10 MG TAB PO SCH (21:00)
[2018-09-04] MEDS: BREXPIPRAZOLE 0.5MG TABLET (REXULTI) PO SCH (22:03)
[2018-09-05] MEDS: HumaLOG INSULIN (NovoLOG) PER UNIT SC SCH ×3 (06:49→17:18)
[2018-09-05 06:50] VITALS: BP 160/82
[2018-09-05] MEDS: metFORMIN (GLUCOPHAGE) 1000 MG TABLET PO SCH ×2 (08:44→17:16)
[2018-09-05] MEDS: GLIMEPIRIDE 2 MG TAB PO SCH (08:44)
[2018-09-05] MEDS: CHLORTHALIDONE 25 MG TAB PO SCH (09:42)
[2018-09-05] MEDS: GABAPENTIN 300 MG CAP PO SCH ×3 (09:42→21:39)
[2018-09-05] MEDS: ASPIRIN 81 MG ENTERIC TAB PO SCH (09:42)
[2018-09-05] MEDS: OMEPRAZOLE 20 MG CAP PO SCH (09:43)
[2018-09-05] MEDS: VENLAFAXINE **XR** 75MG CAPSULE PO SCH (09:43)
[2018-09-05] MEDS: NICOTINE 14 MG/24 HR TRANSDERMAL TD SCH (09:44)
--- NOTE | 2018-09-05 15:24 | MHIPNPDOC ---
[facility] Progress Note Progress Note DATE OF SERVICE: 09/05/18 HISTORY: Patient is a 58 -year-old , male, with a history of depression and admission [facility] 08/10/18 for depression and SI who present to ED with his friend endorsing worsening anxiety and depression after stopping his regular medication 1wk ago due to lack of motivation and depression and failing to follow-up with appts. Pt in the ED endorsing helplessness, hopelessness, occasional confusion, anhedonia, apathy, avolition (no shower in 1wk, not wanting to get out of bed), isolation (not wanting to leave home, talk to anyone on phone), anxiety. Pt admitted to several psychosocial stressors that are the same as when previously admitted 08/10/18 including going thru 3rd divorce, living alone, possibility of loosing home, inability to work. Pt denied SI in the ED last night. Denied HI, hallucinations, delusions. VITAL SIGNS: See below. NEW TEST RESULTS: See below. CURRENT MEDICATIONS: See below. MENTAL STATUS EXAMINATION: General Appearance: unkempt, disheveled, malodorous, appears stated age, hospital scrubs/clothing Build: overweight Demeanor: withdrawn, depressed Eye Contact: fair Activity: slowed Behavior: cooperative, withdrawn Speech: clear, low in volume Mood: "I'm just so nervous of going back home" Mood depressed, anxious Affect: constricted, flat, congruent, anxious Thought Process: logical/linear, depressed, intact Thought Content (Delusions): none reported, denies SI, HI, AVH Thought Content (Other): none reported, appropriate Thought Content (Aggressive): none reported Perception (Hallucinations): none reported Perception (Other): none reported Cognition (Impairment of): none reported Cognition(Intelligence Est.): average Oriented: Awake, Alert, Oriented times three Insight: poor Judgment: Poor Psychosis: Denies DIAGNOSES: 1. Major depressive d/o recurrent severe w/o psychosis 2. PTSD 3. BRENDA ASSESSMENT:Pt says "the situation at home is really a mess" (talking about his financial situation0, he says when he is here he feels safe but as soon as he goes back home he feels extremely anxious and depressed. he reports he never went to [place] to last picker his medications because he didn't have the energy, nor the will and he thought "to hell with this I'm not going to take any more medications". Spoke with him about some financial scenarios that could help him to get out of this problem. he report she didn't sleep lat night and he is aware this is the result of sleeping during the day time. Spoke with him about doing what he needs to do, take his medications, follow thru when he is discharged. MANAGEMENT PLAN: continue plan as per Dr. Bennett Medications: Rexulti 1.5mg qhs abilify 10mg qhs effexor xr 300mg daily for mood and anxiety TIME SPENT: 30 minutes. Vital Signs Vital Signs Date Time Temp Pulse Resp B/P (MAP) Pulse Ox O2 Delivery O2 Flow Rate FiO2 09/05/18 06:50 97.7 80 80 160/82 (108) 09/02/18 14:14 98 09/02/18 09:48 Room Air Laboratory Data 24H Labs Laboratory Tests 2 09/04/18 16:53: Bedside Glucose (Misc Panel) 147H 09/04/18 22:02: Bedside Glucose (Misc Panel) 127H Current Medications Current Medications Acetaminophen (Tylenol Tab) 650 mg Q6HP PRN PO HEADACHE or DISCOMFORT; Start 09/02/18 at 13:30 Al Hydrox/Mg Hydrox/Simethicone (Mylanta) 30 ml Q4HP PRN PO HEARTBURN/INDIGESTION; Start 09/02/18 at 13:30 Aripiprazole (AbiLIFY) 10 mg QHS PO Last administered on 09/04/18at 21:00; Start 09/03/18 at 21:00 Aripiprazole (AbiLIFY) 15 mg QHS PO Last administered on 09/02/18at 22:16; Start 09/02/18 at 21:00; Stop 09/03/18 at 12:35; Status DC Aspirin (Ecotrin) 81 mg DAILY PO Last administered on 09/05/18at 09:42; Start 09/02/18 at 09:00 Brexpiprazole (Rexulti) 1 mg DAILY PO Last administered on 09/03/18 09:01; Start 09/02/18 at 09:00; Stop 09/03/18 at 12:35; Status DC Brexpiprazole (Rexulti) 1.5 mg QHS PO Last administered on 09/04/18 22:03; Start 09/03/18 at 21:00 Chlorthalidone (Hygroton) 25 mg BID PO Last administered on 09/03/18at 09:01; Start 09/02/18 at 09:00; Stop 09/03/18 at 10:02; Status DC Chlorthalidone (Hygroton) 25 mg DAILY PO Last administered on 09/05/18at 09:42; Start 09/04/18 at 09:00 Dextrose (Dextrose 50%) 25 ml ASDIRECTED PRN IV SEE LABEL COMMENTS; Start 09/03/18 at 11:45 Gabapentin (Neurontin) 300 mg TID PO Last administered on 09/05/18at 09:42; Start 09/02/18 at 16:00 Glimepiride (Amaryl) 4 mg DAILY@0800 PO Last administered on 09/05/18at 08:44; Start 09/03/18 at 08:00 Glucagon (Glucagon) 1 mg ASDIRECTED PRN SC SEE LABEL COMMENTS; Start 09/03/18 at 11:45 Glucose (Glucose) 16 GM ASDIRECTED PRN PO SEE LABEL COMMENTS; Start 09/03/18 at 11:45 Home Med (Med Rec Complete!) ASDIRECTED XX ; Start 09/02/18 at 11:15; Stop 09/02/18 at 11:15; Status DC Hydroxyzine HCl (Atarax) 50 mg Q6HP PRN PO ANXIETY/AGITATION; Start 09/02/18 at 13:45 Insulin Human Lispro (HumaLOG INSULIN) See Protocol Table AC SC Last administered on 09/04/18at 16:58; Start 09/03/18 at 12:00 Magnesium Hydroxide (Milk Of Magnesia) 30 ml DAILYPRN PRN PO CONSTIPATION; Start 09/02/18 at 13:30 Metformin HCl (Glucophage) 1,000 mg BID@0800,1800 PO Last administered on 09/05/18at 08:44; Start 09/02/18 at 18:00 Nicotine (Nicoderm Cq 14mg) 1 patch DAILY TD Last administered on 09/05/18 09:44; Start 09/03/18 at 09:00 Omeprazole (PriLOSEC) 40 mg DAILY PO Last administered on 09/05/18at 09:43; Start 09/02/18 at 09:00 Trazodone HCl (Desyrel) 50 mg QHSP PRN PO INSOMNIA; Start 09/02/18 at 13:30 Venlafaxine HCl (Effexor Xr) 300 mg DAILY PO Last administered on 09/05/18at 09:43; Start 09/02/18 at 09:00 Allergies Coded Allergies: nitroglycerin (Verified Allergy, Unknown, 09/02/18) CARLOS BERMUDEZ MD Sep 05, 2018 15:24
[2018-09-05 18:26] VITALS: BP 110/78
[2018-09-05] MEDS: ARIPiprazole 10 MG TAB PO SCH (21:39)
[2018-09-05] MEDS: BREXPIPRAZOLE 0.5MG TABLET (REXULTI) PO SCH (21:39)
[2018-09-06 06:38] VITALS: BP 150/83
[2018-09-06] MEDS: HumaLOG INSULIN (NovoLOG) PER UNIT SC SCH ×3 (07:11→16:55)
[2018-09-06] MEDS: GLIMEPIRIDE 2 MG TAB PO SCH (08:56)
[2018-09-06] MEDS: metFORMIN (GLUCOPHAGE) 1000 MG TABLET PO SCH ×2 (08:57→17:10)
[2018-09-06] MEDS: ASPIRIN 81 MG ENTERIC TAB PO SCH (09:06)
[2018-09-06] MEDS: OMEPRAZOLE 20 MG CAP PO SCH (09:06)
[2018-09-06] MEDS: CHLORTHALIDONE 25 MG TAB PO SCH (09:06)
[2018-09-06] MEDS: GABAPENTIN 300 MG CAP PO SCH ×3 (09:06→21:08)
[2018-09-06] MEDS: VENLAFAXINE **XR** 75MG CAPSULE PO SCH (09:06)
[2018-09-06] MEDS: NICOTINE 14 MG/24 HR TRANSDERMAL TD SCH (09:07)
[2018-09-06] MEDS ORDERED: LORazepam 2 MG TAB PO STA (12:10)
--- NOTE | 2018-09-06 12:10 | MHIPNPDOC ---
[facility] Progress Note Progress Note DATE OF SERVICE: 09/06/18 HISTORY: Patient is a 58 -year-old , male, with a history of depression and admission [facility] 08/10/18 for depression and SI who present to ED with his friend endorsing worsening anxiety and depression after stopping his regular medication 1wk ago due to lack of motivation and depression and failing to follow-up with appts. Pt in the ED endorsing helplessness, hopelessness, occasional confusion, anhedonia, apathy, avolition (no shower in 1wk, not wanting to get out of bed), isolation (not wanting to leave home, talk to anyone on phone), anxiety. Pt admitted to several psychosocial stressors that are the same as when previously admitted 08/10/18 including going thru 3rd divorce, living alone, possibility of loosing home, inability to work. Pt denied SI in the ED last night. Denied HI, hallucinations, delusions. VITAL SIGNS: See below. NEW TEST RESULTS: See below. CURRENT MEDICATIONS: See below. MENTAL STATUS EXAMINATION: General Appearance: unkempt, disheveled, laying in bed, looking at the window, wearing hospital clothes Build: overweight Demeanor: withdrawn, depressed very anxious, easily startled Eye Contact: avoidant today Activity: slowed Behavior: cooperative, withdrawn, anxious Speech: clear, low in volume Mood: "I'm very anxious , I wqas not able to sleep a bit last night" Mood depressed, anxious Affect: constricted, flat, congruent, anxious Thought Process: logical/linear, depressed, intact Thought Content (Delusions): none reported, denies SI, HI, AVH Thought Content (Other): Depressed/ anxious thoughts, full of cognitive distortions Thought Content (Aggressive): none reported Perception (Hallucinations): none reported Perception (Other): none reported Cognition (Impairment of): none reported Cognition(Intelligence Est.): average Oriented: Awake, Alert, Oriented times three Insight: poor Judgment: Poor Psychosis: Denies DIAGNOSES: 1. Major depressive d/o recurrent severe w/o psychosis 2. PTSD 3. BRENDA ASSESSMENT:Pt says he was not able to sleep at night because he kept thinking about all his problems at home and he is feeling really, really anxious. pat's voice was tremulous as he spoke with me. I'm going to add Propranolol 10 mgs PO TIP for severe anxiety/panic attacks. he was laying in bed and was startled when I came in to talk to him. I'm ordering 2 mgs of Ativan a one time dose now to help him feel better. Patient was educated yesterday as of why he needs to leave his room, walk the hallways, go to groups. He is not doing it and he was not very good at doing that on his previous admission. patient didn't follow up with medications or appointments upon discharge. MANAGEMENT PLAN: continue plan as per Dr. Bennett and will add propranolol 10 mgs PO TIDP plus a one time dose now for Ativan 2 mgs PO now for Ativan Medications: Rexulti 1.5mg qhs abilify 10mg qhs effexor xr 300mg daily for mood and anxiety Propranolol 10 mgs PO TIDP for anxiety/oanic attacks Ativan 2 mgs PO now TIME SPENT: 30 minutes. Vital Signs Vital Signs Date Time Temp Pulse Resp B/P (MAP) Pulse Ox O2 Delivery O2 Flow Rate FiO2 09/06/18 06:38 98.1 75 14 150/83 (105) 09/02/18 14:14 98 09/02/18 09:48 Room Air Laboratory Data 24H Labs Laboratory Tests 2 09/05/18 12:19: Bedside Glucose (Misc Panel) 153H 09/05/18 17:17: Bedside Glucose (Misc Panel) 126H 09/05/18 21:38: Bedside Glucose (Misc Panel) 66L 09/05/18 22:30: Bedside Glucose (Misc Panel) 101 09/06/18 06:27: Bedside Glucose (Misc Panel) 123H Current Medications Current Medications Acetaminophen (Tylenol Tab) 650 mg Q6HP PRN PO HEADACHE or DISCOMFORT; Start 09/02/18 at 13:30 Al Hydrox/Mg Hydrox/Simethicone (Mylanta) 30 ml Q4HP PRN PO HEARTBURN/INDIGESTION; Start 09/02/18 at 13:30 Aripiprazole (AbiLIFY) 10 mg QHS PO Last administered on 09/05/18at 21:39; Start 09/03/18 at 21:00 Aripiprazole (AbiLIFY) 15 mg QHS PO Last administered on 09/02/18at 22:16; Start 09/02/18 at 21:00; Stop 09/03/18 at 12:35; Status DC Aspirin (Ecotrin) 81 mg DAILY PO Last administered on 09/06/18at 09:06; Start 09/02/18 at 09:00 Brexpiprazole (Rexulti) 1 mg DAILY PO Last administered on 09/03/18at 09:01; Start 09/02/18 at 09:00; Stop 09/03/18 at 12:35; Status DC Brexpiprazole (Rexulti) 1.5 mg QHS PO Last administered on 09/05/18at 21:39; Start 09/03/18 at 21:00 Chlorthalidone (Hygroton) 25 mg BID PO Last administered on 09/03/18at 09:01; Start 09/02/18 at 09:00; Stop 09/03/18 at 10:02; Status DC Chlorthalidone (Hygroton) 25 mg DAILY PO Last administered on 09/06/18at 09:06; Start 09/04/18 at 09:00 Dextrose (Dextrose 50%) 25 ml ASDIRECTED PRN IV SEE LABEL COMMENTS; Start 09/03/18 at 11:45 Gabapentin (Neurontin) 300 mg TID PO Last administered on 09/06/18at 09:06; Start 09/02/18 at 16:00 Glimepiride (Amaryl) 4 mg DAILY@0800 PO Last administered on 09/06/18at 08:56; Start 09/03/18 at 08:00 Glucagon (Glucagon) 1 mg ASDIRECTED PRN SC SEE LABEL COMMENTS; Start 09/03/18 at 11:45 Glucose (Glucose) 16 GM ASDIRECTED PRN PO SEE LABEL COMMENTS; Start 09/03/18 at 11:45 Home Med (Med Rec Complete!) ASDIRECTED XX ; Start 09/02/18 at 11:15; Stop 09/02/18 at 11:15; Status DC Hydroxyzine HCl (Atarax) 50 mg Q6HP PRN PO ANXIETY/AGITATION; Start 09/02/18 at 13:45 Insulin Human Lispro (HumaLOG INSULIN) See Protocol Table AC SC Last administered on 09/04/18at 16:58; Start 09/03/18 at 12:00 Magnesium Hydroxide (Milk Of Magnesia) 30 ml DAILYPRN PRN PO CONSTIPATION; Start 09/02/18 at 13:30 Metformin HCl (Glucophage) 1,000 mg BID@0800,1800 PO Last administered on 09/06/18 08:57; Start 09/02/18 at 18:00 Nicotine (Nicoderm Cq 14mg) 1 patch DAILY TD Last administered on 09/06/18 09:07; Start 09/03/18 at 09:00 Omeprazole (PriLOSEC) 40 mg DAILY PO Last administered on 09/06/18at 09:06; Start 09/02/18 at 09:00 Trazodone HCl (Desyrel) 50 mg QHSP PRN PO INSOMNIA; Start 09/02/18 at 13:30 Venlafaxine HCl (Effexor Xr) 300 mg DAILY PO Last administered on 09/06/18at 09:06; Start 09/02/18 at 09:00 Allergies Coded Allergies: nitroglycerin (Verified Allergy, Unknown, 09/02/18) CARLOS BERMUDEZ MD Sep 06, 2018 12:10
[2018-09-06] MEDS ORDERED: PROPRANOLOL 10 MG TAB PO PRN (12:15)
[2018-09-06] MEDS: amLODIPine 5 MG TAB PO SCH (12:26)
[2018-09-06 18:22] VITALS: BP 111/70
[2018-09-06] MEDS: ARIPiprazole 10 MG TAB PO SCH (21:08)
[2018-09-06] MEDS: BREXPIPRAZOLE 0.5MG TABLET (REXULTI) PO SCH (21:08)
[2018-09-07] MEDS: HumaLOG INSULIN (NovoLOG) PER UNIT SC SCH ×3 (06:32→17:15)
[2018-09-07 06:50] VITALS: BP 124/80
[2018-09-07] MEDS: metFORMIN (GLUCOPHAGE) 1000 MG TABLET PO SCH ×2 (07:45→17:15)
[2018-09-07] MEDS: GLIMEPIRIDE 2 MG TAB PO SCH (07:45)
[2018-09-07] MEDS: ASPIRIN 81 MG ENTERIC TAB PO SCH (09:34)
[2018-09-07] MEDS: CHLORTHALIDONE 25 MG TAB PO SCH (09:34)
[2018-09-07] MEDS: NICOTINE 14 MG/24 HR TRANSDERMAL TD SCH (09:34)
[2018-09-07] MEDS: GABAPENTIN 300 MG CAP PO SCH ×3 (09:34→21:10)
[2018-09-07] MEDS: OMEPRAZOLE 20 MG CAP PO SCH (09:36)
[2018-09-07] MEDS: amLODIPine 5 MG TAB PO SCH (09:36)
[2018-09-07] MEDS: VENLAFAXINE **XR** 75MG CAPSULE PO SCH (09:36)
--- NOTE | 2018-09-07 09:54 | MHIPNPDOC ---
[facility] Progress Note Progress Note DATE OF SERVICE: 09/07/18 HISTORY: Patient is a 58 -year-old , male, with a history of depression and admission [facility] 08/10/18 for depression and SI who present to ED with his friend endorsing worsening anxiety and depression after stopping his regular medication 1wk ago due to lack of motivation and depression and failing to follow-up with appts. Pt in the ED endorsing helplessness, hopelessness, occasional confusion, anhedonia, apathy, avolition (no shower in 1wk, not wanting to get out of bed), isolation (not wanting to leave home, talk to anyone on phone), anxiety. Pt admitted to several psychosocial stressors that are the same as when previously admitted 08/10/18 including going thru 3rd divorce, living alone, possibility of loosing home, inability to work. Pt denied SI in the ED last night. Denied HI, hallucinations, delusions. VITAL SIGNS: See below. NEW TEST RESULTS: See below. CURRENT MEDICATIONS: See below. MENTAL STATUS EXAMINATION: General Appearance: unkempt, disheveled, laying in bed, looking at the window, wearing hospital clothes Build: overweight Demeanor: cooperative and attentive Eye Contact: good Activity: average Behavior: cooperative, less anxious Speech: clear, reg volume Mood: less depressed and anxious Mood better Affect: less constricted, flat, congruent, less anxious Thought Process: logical/linear, depressed, intact, worrisome thoughts about ability to pay bills at home Thought Content (Delusions): none reported, denies SI, HI, AVH Thought Content (Other): Depressed/ anxious thoughts, full of cognitive distortions Thought Content (Aggressive): none reported Perception (Hallucinations): none reported Perception (Other): none reported Cognition (Impairment of): none reported Cognition(Intelligence Est.): average Oriented: Awake, Alert, Oriented times three Insight: poor Judgment: Poor Psychosis: Denies DIAGNOSES: 1. Major depressive d/o recurrent severe w/o psychosis 2. PTSD 3. BRENDA ASSESSMENT:Pt seen and states he was able to sleep last night after receiving ativan x1 and therefor his mood is better today. Advised pt that rather than putting him on ativan night which could risk dependance with try seroquel 50mg qhs to aid with sleep at night at decrease abilify to 5mg qhs. State he's tolerating rexuli well and finding beneficial. Endorses worrisome thoughts about ability to pay his bills at home which is the source of most of his anxiety. States Propranolol 10 mgs PO TIP is beneficial for severe anxiety/panic attacks and he's tolerating it well. Encouraged to socialize in the milieu and attend groups and not isolate in room. Denies SI/HI, hallucinations, delusions. Feels safe here MANAGEMENT PLAN: continue plan. Seroquel 50mg qhs and decrease abilify to 5mg qhs Medications: Rexulti 1.5mg qhs abilify 5mg qhs effexor xr 300mg daily for mood and anxiety Propranolol 10 mgs PO TIDP for anxiety/oanic attacks seroquel 50mg qhs TIME SPENT: 30 minutes. Vital Signs Vital Signs Date Time Temp Pulse Resp B/P (MAP) Pulse Ox O2 Delivery O2 Flow Rate FiO2 09/07/18 06:50 98.0 85 16 124/80 (95) 09/02/18 14:14 98 09/02/18 09:48 Room Air Laboratory Data 24H Labs Laboratory Tests 2 09/06/18 12:10: Bedside Glucose (Misc Panel) 105 09/07/18 06:16: Bedside Glucose (Misc Panel) 81 Current Medications Current Medications Acetaminophen (Tylenol Tab) 650 mg Q6HP PRN PO HEADACHE or DISCOMFORT; Start 09/02/18 at 13:30 Al Hydrox/Mg Hydrox/Simethicone (Mylanta) 30 ml Q4HP PRN PO HEARTBURN/INDIGESTION; Start 09/02/18 at 13:30 Amlodipine Besylate (Norvasc) 5 mg DAILY PO Last administered on 09/06/18at 12:26; Start 09/06/18 at 09:00 Aripiprazole (AbiLIFY) 10 mg QHS PO Last administered on 09/06/18at 21:08; Start 09/03/18 at 21:00 Aripiprazole (AbiLIFY) 15 mg QHS PO Last administered on 09/02/18at 22:16; Start 09/02/18 at 21:00; Stop 09/03/18 at 12:35; Status DC Aspirin (Ecotrin) 81 mg DAILY PO Last administered on 09/06/18at 09:06; Start 09/02/18 at 09:00 Brexpiprazole (Rexulti) 1 mg DAILY PO Last administered on 09/03/18 09:01; Start 09/02/18 at 09:00; Stop 09/03/18 at 12:35; Status DC Brexpiprazole (Rexulti) 1.5 mg QHS PO Last administered on 09/06/18 21:08; Start 09/03/18 at 21:00 Chlorthalidone (Hygroton) 25 mg BID PO Last administered on 09/03/18at 09:01; Start 09/02/18 at 09:00; Stop 09/03/18 at 10:02; Status DC Chlorthalidone (Hygroton) 25 mg DAILY PO Last administered on 09/06/18at 09:06; Start 09/04/18 at 09:00 Dextrose (Dextrose 50%) 25 ml ASDIRECTED PRN IV SEE LABEL COMMENTS; Start 09/03/18 at 11:45 Gabapentin (Neurontin) 300 mg TID PO Last administered on 09/06/18at 21:08; Start 09/02/18 at 16:00 Glimepiride (Amaryl) 4 mg DAILY@0800 PO Last administered on 09/07/18at 07:45; Start 09/03/18 at 08:00 Glucagon (Glucagon) 1 mg ASDIRECTED PRN SC SEE LABEL COMMENTS; Start 09/03/18 at 11:45 Glucose (Glucose) 16 GM ASDIRECTED PRN PO SEE LABEL COMMENTS; Start 09/03/18 at 11:45 Home Med (Med Rec Complete!) ASDIRECTED XX ; Start 09/02/18 at 11:15; Stop 09/02/18 at 11:15; Status DC Hydroxyzine HCl (Atarax) 50 mg Q6HP PRN PO ANXIETY/AGITATION; Start 09/02/18 at 13:45 Insulin Human Lispro (HumaLOG INSULIN) See Protocol Table AC SC Last administered on 09/04/18at 16:58; Start 09/03/18 at 12:00 Lorazepam (Ativan) 2 mg STAT STAT PO Last administered on 09/06/18at 12:24; Start 09/06/18 at 12:10; Stop 09/06/18 at 12:12; Status DC Magnesium Hydroxide (Milk Of Magnesia) 30 ml DAILYPRN PRN PO CONSTIPATION; Start 09/02/18 at 13:30 Metformin HCl (Glucophage) 1,000 mg BID@0800,1800 PO Last administered on 09/07/18at 07:45; Start 09/02/18 at 18:00 Nicotine (Nicoderm Cq 14mg) 1 patch DAILY TD Last administered on 09/06/18at 09:07; Start 09/03/18 at 09:00 Omeprazole (PriLOSEC) 40 mg DAILY PO Last administered on 09/06/18at 09:06; Start 09/02/18 at 09:00 Propranolol HCl (Inderal) 10 mg TID PRN PO ANXIETY/AGITATION; Start 09/06/18 at 12:15 Trazodone HCl (Desyrel) 50 mg QHSP PRN PO INSOMNIA; Start 09/02/18 at 13:30 Venlafaxine HCl (Effexor Xr) 300 mg DAILY PO Last administered on 09/06/18at 09:06; Start 09/02/18 at 09:00 Allergies Coded Allergies: nitroglycerin (Verified Allergy, Unknown, 09/02/18) ELIECER RUTLEDGE DO Sep 07, 2018 9:32 am
[2018-09-07 18:00] VITALS: BP 113/73
[2018-09-07] MEDS: BREXPIPRAZOLE 0.5MG TABLET (REXULTI) PO SCH (21:10)
[2018-09-07] MEDS: ARIPiprazole 10 MG TAB PO SCH (21:11)
[2018-09-08 06:34] VITALS: BP 119/84
[2018-09-08] MEDS: HumaLOG INSULIN (NovoLOG) PER UNIT SC SCH ×3 (06:39→16:59)
[2018-09-08] MEDS: NICOTINE 14 MG/24 HR TRANSDERMAL TD SCH (08:42)
[2018-09-08] MEDS: VENLAFAXINE **XR** 75MG CAPSULE PO SCH (08:42)
[2018-09-08] MEDS: OMEPRAZOLE 20 MG CAP PO SCH (08:42)
[2018-09-08] MEDS: amLODIPine 5 MG TAB PO SCH (08:42)
[2018-09-08] MEDS: metFORMIN (GLUCOPHAGE) 1000 MG TABLET PO SCH ×2 (08:42→17:00)
[2018-09-08] MEDS: GLIMEPIRIDE 2 MG TAB PO SCH (08:42)
[2018-09-08] MEDS: CHLORTHALIDONE 25 MG TAB PO SCH (08:42)
[2018-09-08] MEDS: ASPIRIN 81 MG ENTERIC TAB PO SCH (08:43)
[2018-09-08] MEDS: GABAPENTIN 300 MG CAP PO SCH ×3 (08:43→21:13)
--- NOTE | 2018-09-08 10:25 | MHIPNPDOC ---
[facility] Progress Note Progress Note DATE OF SERVICE: 09/08/18 HISTORY: Patient is a 58 -year-old , male, with a history of depression and admission [facility] 08/10/18 for depression and SI who present to ED with his friend endorsing worsening anxiety and depression after stopping his regular medication 1wk ago due to lack of motivation and depression and failing to follow-up with appts. Pt in the ED endorsing helplessness, hopelessness, occasional confusion, anhedonia, apathy, avolition (no shower in 1wk, not wanting to get out of bed), isolation (not wanting to leave home, talk to anyone on phone), anxiety. Pt admitted to several psychosocial stressors that are the same as when previously admitted 08/10/18 including going thru 3rd divorce, living alone, possibility of loosing home, inability to work. Pt denied SI in the ED last night. Denied HI, hallucinations, delusions. VITAL SIGNS: See below. NEW TEST RESULTS: See below. CURRENT MEDICATIONS: See below. MENTAL STATUS EXAMINATION: General Appearance: unkempt, disheveled, laying in bed, looking at the window, wearing hospital clothes Build: overweight Demeanor: cooperative and attentive Eye Contact: good Activity: average Behavior: cooperative, less anxious Speech: clear, reg volume Mood: less depressed and anxious Mood better Affect: less constricted, flat, congruent, less anxious Thought Process: logical/linear, depressed, intact, worrisome thoughts about ability to pay bills at home Thought Content (Delusions): none reported, denies SI, HI, AVH Thought Content (Other): Depressed/ anxious thoughts, full of cognitive distortions Thought Content (Aggressive): none reported Perception (Hallucinations): none reported Perception (Other): none reported Cognition (Impairment of): none reported Cognition(Intelligence Est.): average Oriented: Awake, Alert, Oriented times three Insight: poor Judgment: Poor Psychosis: Denies DIAGNOSES: 1. Major depressive d/o recurrent severe w/o psychosis 2. PTSD 3. BRENDA ASSESSMENT:Pt seen and states mood is ok and that he slept well last night with seroquel and tolerated it well. Denies overt depression. Feels rexulti is beneficial to mood and will d/c abilify today to complete cross titration to rexulti. Pt admits he fears going home due to loneliness there and encouraged to think of things to get himself outside his home and around others while he is here so doesn't feel so lonely at home. Continues to endorses worrisome thoughts about ability to pay his bills at home which is the source of most of his anxiety. States Propranolol 10 mgs PO TIP is beneficial for severe anxiety/panic attacks and he's tolerating it well. Encouraged to socialize in the milieu and attend groups and not isolate in room. Denies SI/HI, hallucinations, delusions. Feels safe here MANAGEMENT PLAN: continue plan. d/c abilify Medications: Rexulti 1.5mg qhs effexor xr 300mg daily for mood and anxiety Propranolol 10 mgs PO TIDP for anxiety/oanic attacks seroquel 50mg qhs TIME SPENT: 30 minutes. Vital Signs Vital Signs Date Time Temp Pulse Resp B/P (MAP) Pulse Ox O2 Delivery O2 Flow Rate FiO2 09/08/18 08:42 90 125/81 09/08/18 06:34 99.5 18 09/02/18 14:14 98 09/02/18 09:48 Room Air Laboratory Data 24H Labs Laboratory Tests 2 09/07/18 11:32: Bedside Glucose (Misc Panel) 209H 09/07/18 17:13: Bedside Glucose (Misc Panel) 147H 09/08/18 06:19: Bedside Glucose (Misc Panel) 152H Current Medications Current Medications Acetaminophen (Tylenol Tab) 650 mg Q6HP PRN PO HEADACHE or DISCOMFORT; Start 09/02/18 at 13:30 Al Hydrox/Mg Hydrox/Simethicone (Mylanta) 30 ml Q4HP PRN PO HEARTBURN/INDIGESTION; Start 09/02/18 at 13:30 Amlodipine Besylate (Norvasc) 5 mg DAILY PO Last administered on 09/08/18at 08:42; Start 09/06/18 at 09:00 Aripiprazole (AbiLIFY) 10 mg QHS PO Last administered on 09/07/18at 21:11; Start 09/03/18 at 21:00 Aripiprazole (AbiLIFY) 15 mg QHS PO Last administered on 09/02/18at 22:16; Start 09/02/18 at 21:00; Stop 09/03/18 at 12:35; Status DC Aspirin (Ecotrin) 81 mg DAILY PO Last administered on 09/08/18 08:43; Start 09/02/18 at 09:00 Brexpiprazole (Rexulti) 1 mg DAILY PO Last administered on 09/03/18at 09:01; Start 09/02/18 at 09:00; Stop 09/03/18 at 12:35; Status DC Brexpiprazole (Rexulti) 1.5 mg QHS PO Last administered on 09/07/18at 21:10; Start 09/03/18 at 21:00 Chlorthalidone (Hygroton) 25 mg BID PO Last administered on 09/03/18 09:01; Start 09/02/18 at 09:00; Stop 09/03/18 at 10:02; Status DC Chlorthalidone (Hygroton) 25 mg DAILY PO Last administered on 09/08/18 08:42; Start 09/04/18 at 09:00 Dextrose (Dextrose 50%) 25 ml ASDIRECTED PRN IV SEE LABEL COMMENTS; Start 09/03/18 at 11:45 Gabapentin (Neurontin) 300 mg TID PO Last administered on 09/08/18 08:43; Start 09/02/18 at 16:00 Glimepiride (Amaryl) 4 mg DAILY@0800 PO Last administered on 09/08/18 08:42; Start 09/03/18 at 08:00 Glucagon (Glucagon) 1 mg ASDIRECTED PRN SC SEE LABEL COMMENTS; Start 09/03/18 at 11:45 Glucose (Glucose) 16 GM ASDIRECTED PRN PO SEE LABEL COMMENTS; Start 09/03/18 at 11:45 Home Med (Med Rec Complete!) ASDIRECTED XX ; Start 09/02/18 at 11:15; Stop 09/02/18 at 11:15; Status DC Hydroxyzine HCl (Atarax) 50 mg Q6HP PRN PO ANXIETY/AGITATION; Start 09/02/18 at 13:45 Insulin Human Lispro (HumaLOG INSULIN) See Protocol Table AC SC Last administered on 09/08/18at 06:39; Start 09/03/18 at 12:00 Lorazepam (Ativan) 2 mg STAT STAT PO Last administered on 09/06/18at 12:24; Start 09/06/18 at 12:10; Stop 09/06/18 at 12:12; Status DC Magnesium Hydroxide (Milk Of Magnesia) 30 ml DAILYPRN PRN PO CONSTIPATION Last administered on 09/08/18 09:37; Start 09/02/18 at 13:30 Metformin HCl (Glucophage) 1,000 mg BID@0800,1800 PO Last administered on 09/08/18 08:42; Start 09/02/18 at 18:00 Nicotine (Nicoderm Cq 14mg) 1 patch DAILY TD Last administered on 09/08/18 08:42; Start 09/03/18 at 09:00 Omeprazole (PriLOSEC) 40 mg DAILY PO Last administered on 09/08/18 08:42; Start 09/02/18 at 09:00 Propranolol HCl (Inderal) 10 mg TID PRN PO ANXIETY/AGITATION; Start 09/06/18 at 12:15 Trazodone HCl (Desyrel) 50 mg QHSP PRN PO INSOMNIA; Start 09/02/18 at 13:30 Venlafaxine HCl (Effexor Xr) 300 mg DAILY PO Last administered on 09/08/18 08:42; Start 09/02/18 at 09:00 Allergies Coded Allergies: nitroglycerin (Verified Allergy, Unknown, 09/02/18) ELIECER RUTLEDGE DO Sep 08, 2018 10:25 am
[2018-09-08 18:00] VITALS: BP 116/83
[2018-09-08] MEDS: ARIPiprazole 10 MG TAB PO SCH (21:13)
[2018-09-08] MEDS: BREXPIPRAZOLE 0.5MG TABLET (REXULTI) PO SCH (21:13)
[2018-09-09] MEDS: HumaLOG INSULIN (NovoLOG) PER UNIT SC SCH ×3 (06:30→17:01)
[2018-09-09 06:34] VITALS: BP 136/81
[2018-09-09] MEDS: metFORMIN (GLUCOPHAGE) 1000 MG TABLET PO SCH ×2 (07:26→17:01)
[2018-09-09] MEDS: GLIMEPIRIDE 2 MG TAB PO SCH (07:26)
--- NOTE | 2018-09-09 09:04 | MHIPNPDOC ---
[facility] Progress Note Progress Note DATE OF SERVICE: 09/09/18 HISTORY: Patient is a 58 -year-old , male, with a history of depression and admission [facility] 08/10/18 for depression and SI who present to ED with his friend endorsing worsening anxiety and depression after stopping his regular medication 1wk ago due to lack of motivation and depression and failing to follow-up with appts. Pt in the ED endorsing helplessness, hopelessness, occasional confusion, anhedonia, apathy, avolition (no shower in 1wk, not wanting to get out of bed), isolation (not wanting to leave home, talk to anyone on phone), anxiety. Pt admitted to several psychosocial stressors that are the same as when previously admitted 08/10/18 including going thru 3rd divorce, living alone, possibility of loosing home, inability to work. Pt denied SI in the ED last night. Denied HI, hallucinations, delusions. VITAL SIGNS: See below. NEW TEST RESULTS: See below. CURRENT MEDICATIONS: See below. MENTAL STATUS EXAMINATION: General Appearance: unkempt, disheveled, laying in bed, looking at the window, wearing hospital clothes Build: overweight Demeanor: cooperative and attentive Eye Contact: good Activity: average Behavior: cooperative, less anxious Speech: clear, reg volume Mood: less depressed and less anxious Mood better Affect: less constricted, flat, congruent, less anxious Thought Process: logical/linear, depressed, intact, worrisome thoughts about ability to pay bills at home Thought Content (Delusions): none reported, denies SI, HI, AVH Thought Content (Other): Depressed/ anxious thoughts, full of cognitive distortions Thought Content (Aggressive): none reported Perception (Hallucinations): none reported Perception (Other): none reported Cognition (Impairment of): none reported Cognition(Intelligence Est.): average Oriented: Awake, Alert, Oriented times three Insight: poor Judgment: Poor Psychosis: Denies DIAGNOSES: 1. Major depressive d/o recurrent severe w/o psychosis 2. PTSD 3. BRENDA ASSESSMENT:Pt seen and states mood is alright and that he slept well last night with seroquel and tolerated it well. Denies overt depression. Feels rexulti is beneficial to mood and will d/c abilify today to complete cross titration to rexulti. Pt continues to fear going home due to loneliness there and encouraged to think of things to get himself outside his home and around others while he is here and once home (go to coffee, walk around mall, grocery store, be outside home around others) so doesn't feel so lonely at home. States Propranolol 10 mgs PO TIP is beneficial for severe anxiety/panic attacks and he's tolerating it well. Encouraged to socialize in the milieu and attend groups and not isolate in room. Denies SI/HI, hallucinations, delusions. Feels safe here MANAGEMENT PLAN: continue plan. d/c abilify Medications: Rexulti 1.5mg qhs effexor xr 300mg daily for mood and anxiety Propranolol 10 mgs PO TIDP for anxiety/oanic attacks seroquel 50mg qhs TIME SPENT: 30 minutes. Vital Signs Vital Signs Date Time Temp Pulse Resp B/P (MAP) Pulse Ox O2 Delivery O2 Flow Rate FiO2 09/09/18 06:34 98.5 86 16 136/81 (99) Laboratory Data 24H Labs Laboratory Tests 2 09/08/18 11:52: Bedside Glucose (Misc Panel) 122H 09/08/18 16:48: Bedside Glucose (Misc Panel) 144H 09/08/18 20:53: Bedside Glucose (Misc Panel) 69L 09/09/18 06:29: Bedside Glucose (Misc Panel) 147H Current Medications Current Medications Acetaminophen (Tylenol Tab) 650 mg Q6HP PRN PO HEADACHE or DISCOMFORT; Start 09/02/18 at 13:30 Al Hydrox/Mg Hydrox/Simethicone (Mylanta) 30 ml Q4HP PRN PO HEARTBURN/INDIGESTION; Start 09/02/18 at 13:30 Amlodipine Besylate (Norvasc) 5 mg DAILY PO Last administered on 09/08/18at 08:42; Start 09/06/18 at 09:00 Aripiprazole (AbiLIFY) 10 mg QHS PO Last administered on 09/08/18at 21:13; Start 09/03/18 at 21:00 Aripiprazole (AbiLIFY) 15 mg QHS PO Last administered on 09/02/18at 22:16; Start 09/02/18 at 21:00; Stop 09/03/18 at 12:35; Status DC Aspirin (Ecotrin) 81 mg DAILY PO Last administered on 09/08/18 08:43; Start 09/02/18 at 09:00 Brexpiprazole (Rexulti) 1 mg DAILY PO Last administered on 09/03/18 09:01; Start 09/02/18 at 09:00; Stop 09/03/18 at 12:35; Status DC Brexpiprazole (Rexulti) 1.5 mg QHS PO Last administered on 09/08/18 21:13; Start 09/03/18 at 21:00 Chlorthalidone (Hygroton) 25 mg BID PO Last administered on 09/03/18 09:01; Start 09/02/18 at 09:00; Stop 09/03/18 at 10:02; Status DC Chlorthalidone (Hygroton) 25 mg DAILY PO Last administered on 09/08/18 08:42; Start 09/04/18 at 09:00 Dextrose (Dextrose 50%) 25 ml ASDIRECTED PRN IV SEE LABEL COMMENTS; Start 09/03/18 at 11:45 Gabapentin (Neurontin) 300 mg TID PO Last administered on 09/08/18 21:13; Start 09/02/18 at 16:00 Glimepiride (Amaryl) 4 mg DAILY@0800 PO Last administered on 09/09/18 07:26; Start 09/03/18 at 08:00 Glucagon (Glucagon) 1 mg ASDIRECTED PRN SC SEE LABEL COMMENTS; Start 09/03/18 at 11:45 Glucose (Glucose) 16 GM ASDIRECTED PRN PO SEE LABEL COMMENTS; Start 09/03/18 at 11:45 Home Med (Med Rec Complete!) ASDIRECTED XX ; Start 09/02/18 at 11:15; Stop 09/02/18 at 11:15; Status DC Hydroxyzine HCl (Atarax) 50 mg Q6HP PRN PO ANXIETY/AGITATION; Start 09/02/18 at 13:45 Insulin Human Lispro (HumaLOG INSULIN) See Protocol Table AC SC Last administered on 09/08/18at 16:59; Start 09/03/18 at 12:00 Lorazepam (Ativan) 2 mg STAT STAT PO Last administered on 09/06/18 12:24; Start 09/06/18 at 12:10; Stop 09/06/18 at 12:12; Status DC Magnesium Hydroxide (Milk Of Magnesia) 30 ml DAILYPRN PRN PO CONSTIPATION Last administered on 09/08/18 09:37; Start 09/02/18 at 13:30 Metformin HCl (Glucophage) 1,000 mg BID@0800,1800 PO Last administered on 09/09/18 07:26; Start 09/02/18 at 18:00 Nicotine (Nicoderm Cq 14mg) 1 patch DAILY TD Last administered on 09/08/18 08:42; Start 09/03/18 at 09:00 Omeprazole (PriLOSEC) 40 mg DAILY PO Last administered on 09/08/18 08:42; Start 09/02/18 at 09:00 Propranolol HCl (Inderal) 10 mg TID PRN PO ANXIETY/AGITATION; Start 09/06/18 at 12:15 Trazodone HCl (Desyrel) 50 mg QHSP PRN PO INSOMNIA; Start 09/02/18 at 13:30 Venlafaxine HCl (Effexor Xr) 300 mg DAILY PO Last administered on 09/08/18 08:42; Start 09/02/18 at 09:00 Allergies Coded Allergies: nitroglycerin (Verified Allergy, Unknown, 09/02/18) ELIECER RUTLEDGE DO Sep 09, 2018 9:04 am
[2018-09-09] MEDS: VENLAFAXINE **XR** 75MG CAPSULE PO SCH (09:20)
[2018-09-09] MEDS: OMEPRAZOLE 20 MG CAP PO SCH (09:20)
[2018-09-09] MEDS: GABAPENTIN 300 MG CAP PO SCH ×3 (09:21→20:58)
[2018-09-09] MEDS: ASPIRIN 81 MG ENTERIC TAB PO SCH (09:21)
[2018-09-09] MEDS: CHLORTHALIDONE 25 MG TAB PO SCH (09:21)
[2018-09-09] MEDS: NICOTINE 14 MG/24 HR TRANSDERMAL TD SCH (09:22)
[2018-09-09] MEDS: amLODIPine 5 MG TAB PO SCH (09:22)
[2018-09-09 18:00] VITALS: BP 109/65
[2018-09-09] MEDS: traZODone 50 MG TAB PO PRN (20:58)
[2018-09-09] MEDS: BREXPIPRAZOLE 0.5MG TABLET (REXULTI) PO SCH (20:58)
[2018-09-10 06:36] VITALS: BP 134/80
[2018-09-10] MEDS: HumaLOG INSULIN (NovoLOG) PER UNIT SC SCH ×3 (06:56→17:22)
[2018-09-10] MEDS: metFORMIN (GLUCOPHAGE) 1000 MG TABLET PO SCH ×2 (08:10→17:21)
[2018-09-10] MEDS: GLIMEPIRIDE 2 MG TAB PO SCH (08:10)
[2018-09-10] MEDS: GABAPENTIN 300 MG CAP PO SCH ×3 (09:23→21:37)
[2018-09-10] MEDS: VENLAFAXINE **XR** 75MG CAPSULE PO SCH (09:23)
[2018-09-10] MEDS: ASPIRIN 81 MG ENTERIC TAB PO SCH (09:24)
[2018-09-10] MEDS: amLODIPine 5 MG TAB PO SCH (09:24)
[2018-09-10] MEDS: CHLORTHALIDONE 25 MG TAB PO SCH (09:24)
[2018-09-10] MEDS: OMEPRAZOLE 20 MG CAP PO SCH (09:24)
[2018-09-10] MEDS: NICOTINE 14 MG/24 HR TRANSDERMAL TD SCH (09:25)
--- NOTE | 2018-09-10 09:33 | MHIPNPDOC ---
[facility] Progress Note Progress Note DATE OF SERVICE: 09/10/18 HISTORY: Patient is a 58 -year-old , male, with a history of depression and admission [facility] 08/10/18 for depression and SI who present to ED with his friend endorsing worsening anxiety and depression after stopping his regular medication 1wk ago due to lack of motivation and depression and failing to follow-up with appts. Pt in the ED endorsing helplessness, hopelessness, occasional confusion, anhedonia, apathy, avolition (no shower in 1wk, not wanting to get out of bed), isolation (not wanting to leave home, talk to anyone on phone), anxiety. Pt admitted to several psychosocial stressors that are the same as when previously admitted 08/10/18 including going thru 3rd divorce, living alone, possibility of loosing home, inability to work. Pt denied SI in the ED last night. Denied HI, hallucinations, delusions. VITAL SIGNS: See below. NEW TEST RESULTS: See below. CURRENT MEDICATIONS: See below. MENTAL STATUS EXAMINATION: General Appearance: unkempt, disheveled, laying in bed, looking at the window, wearing hospital clothes Build: overweight Demeanor: cooperative and attentive Eye Contact: good Activity: average Behavior: cooperative, less anxious Speech: clear, reg volume Mood: less depressed and less anxious Mood ok Affect: less constricted, flat, congruent, less anxious Thought Process: logical/linear, depressed, intact, worrisome thoughts about being lonely at home Thought Content (Delusions): none reported, denies SI (today), HI, AVH (yesterday threatened to shoot himself if he goes home) Thought Content (Other): Depressed/ anxious thoughts, full of cognitive distortions Thought Content (Aggressive): none reported Perception (Hallucinations): none reported Perception (Other): none reported Cognition (Impairment of): none reported Cognition(Intelligence Est.): average Oriented: Awake, Alert, Oriented times three Insight: poor Judgment: Poor Psychosis: Denies DIAGNOSES: 1. Major depressive d/o recurrent severe w/o psychosis 2. PTSD 3. BRENDA ASSESSMENT:Per staff threatened to shoot himself if he goes home due to not being ready yesterday. Pt seen and states mood is ok and that he slept well last night with seroquel and tolerated it well. Denies overt depression. He appears euthymic mostly. Feels rexulti is beneficial to mood and will d/c abilify today to complete cross titration to rexulti. Pt continues to fear going home due to loneliness there and again encouraged to think of things to get himself outside his home and around others while he is here and once home (go to coffee, walk around mall, grocery store, be outside home around others) so doesn't feel so lonely at home. States Propranolol 10 mgs PO TIP is beneficial for severe anxiety/panic attacks and he's tolerating it well. Continues to isolate in room in bed and highly encouraged to go to groups and socialize in milieu or will lock him out of his room during the day if he continues to isolate as needs to work on socializing to improve mood and ability to socialize outside his home once d/c. Denies SI/HI, hallucinations, delusions today. Feels safe here MANAGEMENT PLAN: continue plan. d/c abilify Medications: Rexulti 1.5mg qhs effexor xr 300mg daily for mood and anxiety Propranolol 10 mgs PO TIDP for anxiety/oanic attacks seroquel 50mg qhs TIME SPENT: 30 minutes. Vital Signs Vital Signs Date Time Temp Pulse Resp B/P (MAP) Pulse Ox O2 Delivery O2 Flow Rate FiO2 09/10/18 06:36 99.0 84 16 134/80 (98) Laboratory Data 24H Labs Laboratory Tests 2 09/09/18 12:10: Bedside Glucose (Misc Panel) 183H 09/09/18 16:58: Bedside Glucose (Misc Panel) 202H 09/09/18 20:55: Bedside Glucose (Misc Panel) 76 09/10/18 06:12: Bedside Glucose (Misc Panel) 96 Current Medications Current Medications Acetaminophen (Tylenol Tab) 650 mg Q6HP PRN PO HEADACHE or DISCOMFORT; Start 09/02/18 at 13:30 Al Hydrox/Mg Hydrox/Simethicone (Mylanta) 30 ml Q4HP PRN PO HEARTBURN/INDIGESTION; Start 09/02/18 at 13:30 Amlodipine Besylate (Norvasc) 5 mg DAILY PO Last administered on 09/09/18at 09:22; Start 09/06/18 at 09:00 Aripiprazole (AbiLIFY) 10 mg QHS PO Last administered on 09/08/18 21:13; Start 09/03/18 at 21:00; Stop 09/09/18 at 09:54; Status DC Aripiprazole (AbiLIFY) 15 mg QHS PO Last administered on 09/02/18 22:16; Start 09/02/18 at 21:00; Stop 09/03/18 at 12:35; Status DC Aspirin (Ecotrin) 81 mg DAILY PO Last administered on 09/09/18 09:21; Start 09/02/18 at 09:00 Brexpiprazole (Rexulti) 1 mg DAILY PO Last administered on 09/03/18 09:01; Start 09/02/18 at 09:00; Stop 09/03/18 at 12:35; Status DC Brexpiprazole (Rexulti) 1.5 mg QHS PO Last administered on 09/09/18 20:58; Start 09/03/18 at 21:00 Chlorthalidone (Hygroton) 25 mg BID PO Last administered on 09/03/18 09:01; Start 09/02/18 at 09:00; Stop 09/03/18 at 10:02; Status DC Chlorthalidone (Hygroton) 25 mg DAILY PO Last administered on 09/09/18 09:21; Start 09/04/18 at 09:00 Dextrose (Dextrose 50%) 25 ml ASDIRECTED PRN IV SEE LABEL COMMENTS; Start 09/03/18 at 11:45 Gabapentin (Neurontin) 300 mg TID PO Last administered on 09/09/18 20:58; Start 09/02/18 at 16:00 Glimepiride (Amaryl) 4 mg DAILY@0800 PO Last administered on 09/10/18 08:10; Start 09/03/18 at 08:00 Glucagon (Glucagon) 1 mg ASDIRECTED PRN SC SEE LABEL COMMENTS; Start 09/03/18 at 11:45 Glucose (Glucose) 16 GM ASDIRECTED PRN PO SEE LABEL COMMENTS; Start 09/03/18 at 11:45 Home Med (Med Rec Complete!) ASDIRECTED XX ; Start 09/02/18 at 11:15; Stop 09/02/18 at 11:15; Status DC Hydroxyzine HCl (Atarax) 50 mg Q6HP PRN PO ANXIETY/AGITATION; Start 09/02/18 at 13:45 Insulin Human Lispro (HumaLOG INSULIN) See Protocol Table AC SC Last administered on 09/09/18 17:01; Start 09/03/18 at 12:00 Lorazepam (Ativan) 2 mg STAT STAT PO Last administered on 09/06/18 12:24; Start 09/06/18 at 12:10; Stop 09/06/18 at 12:12; Status DC Magnesium Hydroxide (Milk Of Magnesia) 30 ml DAILYPRN PRN PO CONSTIPATION Last administered on 09/08/18 09:37; Start 09/02/18 at 13:30 Metformin HCl (Glucophage) 1,000 mg BID@0800,1800 PO Last administered on 09/10/18 08:10; Start 09/02/18 at 18:00 Nicotine (Nicoderm Cq 14mg) 1 patch DAILY TD Last administered on 09/09/18 09:22; Start 09/03/18 at 09:00 Omeprazole (PriLOSEC) 40 mg DAILY PO Last administered on 09/09/18 09:20; Start 09/02/18 at 09:00 Propranolol HCl (Inderal) 10 mg TID PRN PO ANXIETY/AGITATION; Start 09/06/18 at 12:15 Trazodone HCl (Desyrel) 50 mg QHSP PRN PO INSOMNIA Last administered on 09/09/18 20:58; Start 09/02/18 at 13:30 Venlafaxine HCl (Effexor Xr) 300 mg DAILY PO Last administered on 09/09/18 09:20; Start 09/02/18 at 09:00 Allergies Coded Allergies: nitroglycerin (Verified Allergy, Unknown, 09/02/18) ELIECER RUTLEDGE DO Sep 10, 2018 9:33 am
[2018-09-10 18:00] VITALS: BP 129/64
[2018-09-10] MEDS: BREXPIPRAZOLE 0.5MG TABLET (REXULTI) PO SCH (21:38)
[2018-09-11 06:49] VITALS: BP 157/81
[2018-09-11] MEDS: HumaLOG INSULIN (NovoLOG) PER UNIT SC SCH ×3 (07:02→17:04)
[2018-09-11] MEDS: metFORMIN (GLUCOPHAGE) 1000 MG TABLET PO SCH ×2 (07:35→17:04)
[2018-09-11] MEDS: GLIMEPIRIDE 2 MG TAB PO SCH (07:35)
[2018-09-11] MEDS: CHLORTHALIDONE 25 MG TAB PO SCH (09:21)
[2018-09-11] MEDS: GABAPENTIN 300 MG CAP PO SCH ×3 (09:21→21:23)
[2018-09-11] MEDS: ASPIRIN 81 MG ENTERIC TAB PO SCH (09:21)
[2018-09-11] MEDS: OMEPRAZOLE 20 MG CAP PO SCH (09:22)
[2018-09-11] MEDS: NICOTINE 14 MG/24 HR TRANSDERMAL TD SCH (09:22)
[2018-09-11] MEDS: VENLAFAXINE **XR** 75MG CAPSULE PO SCH (09:22)
[2018-09-11] MEDS: amLODIPine 5 MG TAB PO SCH (09:23)
--- NOTE | 2018-09-11 17:24 | MHIPN ---
DATE: 09/11/2018 SUBJECTIVE: I am feeling a little better. I was severely depressed, had suicidal thoughts. OBJECTIVE: He is a 58-year-old male with a history of depression and suicidal ideation, was endorsing symptoms like helplessness, hopelessness, confusion, anhedonia, apathy, currently symptoms are resolving. Though patient has some vague suicidal thoughts, he is denying any suicidal plans. MENTAL STATUS EXAMINATION: Appearance: Well groomed. Behavior: Cooperative. Eye contact: Normal. Speech: Spontaneous, conversant. Mood is depressed. Affect is constricted. Thought process linear, goal directed. Thought content: Vague suicidal thoughts. No delusions. Cognition: Alert, oriented to time, place and person. Memory is intact. Denied any auditory or visual hallucinations. Insight and judgment are fair. DIAGNOSES: Major depressive disorder, recurrent, severe. Post-traumatic stress disorder (PTSD). Generalized anxiety disorder (BRENDA). VITAL SIGNS: Temperature 98, pulse is 89, respiratory rate 16, blood pressure 126/82. PLAN: Continue current medications. Continue individual and group therapy. Coordination of care provided with psychiatric social worker, nursing staff, and treatment team. Estimated length of stay: 2-3 days.
[2018-09-11 18:28] VITALS: BP 114/76
[2018-09-11] MEDS: BREXPIPRAZOLE 0.5MG TABLET (REXULTI) PO SCH (21:24)
[2018-09-12] MEDS: HumaLOG INSULIN (NovoLOG) PER UNIT SC SCH ×3 (06:34→17:04)
[2018-09-12 06:55] VITALS: BP 137/74
[2018-09-12] MEDS: GLIMEPIRIDE 2 MG TAB PO SCH (07:34)
[2018-09-12] MEDS: metFORMIN (GLUCOPHAGE) 1000 MG TABLET PO SCH ×2 (07:34→17:04)
[2018-09-12] MEDS: OMEPRAZOLE 20 MG CAP PO SCH (08:58)
[2018-09-12] MEDS: VENLAFAXINE **XR** 75MG CAPSULE PO SCH (08:58)
[2018-09-12] MEDS: NICOTINE 14 MG/24 HR TRANSDERMAL TD SCH (08:58)
[2018-09-12] MEDS: ASPIRIN 81 MG ENTERIC TAB PO SCH (08:59)
[2018-09-12] MEDS: amLODIPine 5 MG TAB PO SCH (08:59)
[2018-09-12] MEDS: GABAPENTIN 300 MG CAP PO SCH ×3 (08:59→21:19)
[2018-09-12] MEDS: CHLORTHALIDONE 25 MG TAB PO SCH (09:00)
[2018-09-12 18:00] VITALS: BP 102/72
[2018-09-12] MEDS: BREXPIPRAZOLE 0.5MG TABLET (REXULTI) PO SCH (21:19)
[2018-09-13] MEDS: HumaLOG INSULIN (NovoLOG) PER UNIT SC SCH ×3 (06:16→17:16)
[2018-09-13 06:51] VITALS: BP 126/70
[2018-09-13] MEDS: metFORMIN (GLUCOPHAGE) 1000 MG TABLET PO SCH ×2 (07:25→17:16)
[2018-09-13] MEDS: GLIMEPIRIDE 2 MG TAB PO SCH (07:25)
[2018-09-13] MEDS: VENLAFAXINE **XR** 75MG CAPSULE PO SCH (09:29)
[2018-09-13] MEDS: GABAPENTIN 300 MG CAP PO SCH ×3 (09:29→20:52)
[2018-09-13] MEDS: CHLORTHALIDONE 25 MG TAB PO SCH (09:29)
[2018-09-13] MEDS: NICOTINE 14 MG/24 HR TRANSDERMAL TD SCH (09:29)
[2018-09-13] MEDS: OMEPRAZOLE 20 MG CAP PO SCH (09:29)
[2018-09-13] MEDS: ASPIRIN 81 MG ENTERIC TAB PO SCH (09:30)
[2018-09-13] MEDS: amLODIPine 5 MG TAB PO SCH (09:30)
[2018-09-13 18:00] VITALS: BP 131/84
[2018-09-13] MEDS: BREXPIPRAZOLE 0.5MG TABLET (REXULTI) PO SCH (20:52)
[2018-09-13] MEDS: traZODone 50 MG TAB PO PRN (20:54)
[2018-09-14 06:20] VITALS: BP 128/85
[2018-09-14] MEDS: HumaLOG INSULIN (NovoLOG) PER UNIT SC SCH ×3 (06:42→17:04)
[2018-09-14] MEDS: ASPIRIN 81 MG ENTERIC TAB PO SCH (09:04)
[2018-09-14] MEDS: OMEPRAZOLE 20 MG CAP PO SCH (09:04)
[2018-09-14] MEDS: CHLORTHALIDONE 25 MG TAB PO SCH (09:05)
[2018-09-14] MEDS: amLODIPine 5 MG TAB PO SCH (09:05)
[2018-09-14] MEDS: metFORMIN (GLUCOPHAGE) 1000 MG TABLET PO SCH ×2 (09:05→17:04)
[2018-09-14] MEDS: GABAPENTIN 300 MG CAP PO SCH ×3 (09:05→21:45)
[2018-09-14] MEDS: VENLAFAXINE **XR** 75MG CAPSULE PO SCH (09:05)
[2018-09-14] MEDS: GLIMEPIRIDE 2 MG TAB PO SCH (09:05)
[2018-09-14] MEDS: NICOTINE 14 MG/24 HR TRANSDERMAL TD SCH (09:07)
--- NOTE | 2018-09-14 13:53 | MHIPN ---
DATE: 09/14/2018 SUBJECTIVE: "I don't have any suicidal thoughts". OBJECTIVE: He is a 58-year-old male with a history of depression and suicidal ideation who was endorsing symptoms like helplessness, hopelessness, confusion, and anhedonia. Currently he is improving. His sleep and appetite are good. MENTAL STATUS EXAMINATION: Casually dressed. Cooperative. He is alert and oriented to time, place and person. Well groomed. Made good eye contact. Speech rate, rhythm and volume are good. Conversant. Thought process coherent, linear. Thought content: Denies any suicidal or homicidal ideations. Denied any paranoid or bizarre delusions. He denied any auditory or visual hallucinations. Insight and judgment are good. DIAGNOSES: Major depressive disorder, recurrent, severe. Post-traumatic stress disorder (PTSD). Generalized anxiety disorder (BRENDA). VITAL SIGNS: Temperature 97.9, pulse is 108, respiratory rate 12, blood pressure 128/85. PLAN: To observe the patient for 24 hours and then discharge.
[2018-09-14 18:03] VITALS: BP 142/88
[2018-09-14] MEDS: BREXPIPRAZOLE 0.5MG TABLET (REXULTI) PO SCH (21:46)
[2018-09-15] MEDS: HumaLOG INSULIN (NovoLOG) PER UNIT SC SCH ×2 (06:43→12:00)
[2018-09-15 06:44] VITALS: BP 124/65
[2018-09-15] MEDS: VENLAFAXINE **XR** 75MG CAPSULE PO SCH (08:53)
[2018-09-15] MEDS: GABAPENTIN 300 MG CAP PO SCH (08:53)
[2018-09-15] MEDS: metFORMIN (GLUCOPHAGE) 1000 MG TABLET PO SCH (08:53)
[2018-09-15] MEDS: GLIMEPIRIDE 2 MG TAB PO SCH (08:54)
[2018-09-15] MEDS: CHLORTHALIDONE 25 MG TAB PO SCH (08:54)
[2018-09-15 08:55] VITALS: BP 110/74
[2018-09-15] MEDS: amLODIPine 5 MG TAB PO SCH (08:55)
[2018-09-15] MEDS: NICOTINE 14 MG/24 HR TRANSDERMAL TD SCH (08:56)
[2018-09-15] MEDS: OMEPRAZOLE 20 MG CAP PO SCH (08:56)
[2018-09-15] MEDS: ASPIRIN 81 MG ENTERIC TAB PO SCH (08:56)
[2018-09-15] MEDS ORDERED: REXU1TAB2 PO (09:23)
== END 2018-09-15 13:04 | disposition home or self-care (01) | DRG 751 ==
LOC: M ED 09:48 → M ED INP 13:18 → M PSY 14:10
PROVIDERS: ADMIT Psychiatry & Neurology Psychiatry; ATTEND Psychiatry & Neurology Psychiatry
DX: F33.2 Major depressive disorder, recurrent severe without psychotic features (principal); E11.9 Type 2 diabetes mellitus without complications; R45.851 Suicidal ideations; N18.3 Chronic kidney disease, stage 3 (moderate); F43.10 Post-traumatic stress disorder, unspecified; F41.1 Generalized anxiety disorder; Z79.899 Other long term (current) drug therapy; Z79.82 Long term (current) use of aspirin; Z88.8 Allergy status to other drugs, medicaments and biological substances; G89.29 Other chronic pain; I12.9 Hypertensive chronic kidney disease with stage 1 through stage 4 chronic kidney disease, or unspecified chronic kidney disease; K21.9 Gastro-esophageal reflux disease without esophagitis; B18.2 Chronic viral hepatitis C; F17.200 Nicotine dependence, unspecified, uncomplicated

== ENCOUNTER → 2018-12-02 | Outpatient (REF) | payer BC ==
[~2018-12-02] MED LIST changes: +ABIL1TAB12 PO; +HYDR50TA70 PO; +REXU1TAB3 PO; +TRAZ-252 PO; +TRAZ1TAB10 PO; -TRAZO50TA PO
[2018-12-02 13:45] LABS: APPEARANCE, URINE CLEAR (CLEAR); BACTERIA, URINE AUTO NEGATIVE (NEGATIVE); BILIRUBIN, URINE AUTO NEGATIVE (NEGATIVE); BLOOD, URINE BLOOD NEGATIVE (NEGATIVE); COLOR, URINE YELLOW (YELLOW); GLUCOSE, URINE (UA) AUTO 3+ mg/dL (NEGATIVE); KETONE, URINE AUTO NEGATIVE (NEGATIVE); LEUKOCYTE ESTERASE, URINE AUTO NEGATIVE (NEGATIVE); MUCUS, URINE SMALL (NEGATIVE); NITRITE, URINE AUTO NEGATIVE (NEGATIVE); PROTEIN, URINE AUTO NEGATIVE (NEGATIVE); RBC, URINE AUTO 0 /HPF (0-3); SPECIFIC GRAVITY URINE AUTO 1.024 (1.002-1.035); SQUAMOUS EPITHELIAL CELL UR AU 0 /HPF (0-6); UROBILINOGEN, URINE AUTO 0.2 mg/dL (0.0-2.0); WBC, URINE AUTO 2 /HPF (0-3)
== END ==
LOC: M SMT 12:57
PROVIDERS: ATTEND Nurse Practitioner Women's Health
DX: R30.0 Dysuria (principal)

== ENCOUNTER 2018-12-31 01:04 | Inpatient (IN) | payer BC ==
[2018-12-31] VITALS (13 sets, daily range): BP systolic 108–170; BP diastolic 64–96
[~2018-12-31] VITALS: Ht 157.5 cm; Wt 81.5 kg
--- NOTE | 2018-12-31 01:42 | REP ---
Clinical: Trauma. Comparison: 08/25/2017 . Findings: Nondisplaced right sixth rib fracture is identified along with trace left basilar atelectasis. No obvious effusion. No obvious pneumothorax. The mediastinum and cardiac silhouette are stable and within normal limits for portable technique. Impression: 1. Nondisplaced right rib fracture. 2. Trace left basilar atelectasis. Electronically Signed by Blas Damon MD 12/31/2018 01:33 A
[2018-12-31] MEDS ORDERED: MORPHINE 4 MG/ML 1ML VIAL/SYRINGE (J2270) As Ordered ONE (01:56)
[2018-12-31] MEDS ORDERED: MORPHINE 4 MG/ML 1ML VIAL/SYRINGE (J2270) IV PRN (02:00)
[2018-12-31] MEDS ORDERED: MAGICMW SSP (02:05)
[2018-12-31] MEDS ORDERED: CLOT10TR MT (02:05)
[2018-12-31] MEDS ORDERED: NS 1,000 ML IV SCH (02:15)
[2018-12-31] MEDS ORDERED: diphenhydrAMINE INJ 50MG/ML VIAL (J1200) IV PRN ×2 (02:15→13:00)
[2018-12-31] MEDS ORDERED: EPIDURAL/PCA KEYS XX PRN ×2 (02:15→13:00)
[2018-12-31] MEDS ORDERED: ONDANSETRON 4MG/2ML VIAL (J2405) IV PRN ×2 (02:15→13:00)
[2018-12-31] MEDS ORDERED: MORPHINE 1MG/ML IN 0.9% NACL 100ML IV BAG IV PRN (02:15)
[2018-12-31] MEDS ORDERED: NALOXONE INJ 0.4 MG/1 ML VIAL (J2310) IV PRN ×2 (02:15→13:00)
[2018-12-31] MEDS ORDERED: NALBUPHINE HCL 10 MG/ML AMP (J2300) IV PRN (02:15)
--- NOTE | 2018-12-31 02:28 | HPEPDOC ---
General Date of Admission 12/31/18 Date of Service: Dec 31, 2018 Attending Physician: ZURI KURTZ MD Chief Complaint The patient is a 58-year-old male admitted with a reason for visit of Chest Wall Injury. Source: Patient Exam Limitations: No limitations Timing/Duration: 4-6 hours Severity: Severe Associated Symptoms: Other (pain at the fracture site) History of Present Illness D8 years old white male with no past medical history no past surgical history had an accident today where he sustained injury to right side of his chest. As per patient, he fell backwards about 8 feet's some steps and landed on the block on the right side of his chest. Patient went to [facility] from there he was transferred to [facility] for thoracic surgery consult with Dr. Ghotra. ED physician and spoke with Dr. Ghotra and he advised the patient to be admitted under hospitalist service with the morphine [employer] and he will see the patient first thing in the morning Home Medications Scheduled Aspirin (Aspirin EC) 81 Mg Tab, 81 MG PO DAILY, (Reported) Chlorthalidone (Chlorthalidone) 25 Mg Tab, 25 MG PO DAILY, (Reported) Clotrimazole (Clotrimazole) 10 Mg Lynne, 10 MG MT 5XD, (Reported) FOR 10 DAYS: STARTING 12/24/18 Glimepiride (Glimepiride) 4 Mg Tab, 4 MG PO DAILY, (Reported) Magic Mouthwash (First-Mouthwash Blm) 1 Ea Susp, 5 ML SSP QID, (Reported) FOR 12 DAYS: STARTING 12/25/18 Metformin HCl (Metformin HCl) 1,000 Mg Tab, 1,000 MG PO BID, (Reported) Omeprazole (Omeprazole) 40 Mg Cap, 40 MG PO DAILY, (Reported) Venlafaxine HCl (Venlafaxine HCl ER) 150 Mg Cap, 300 MG PO DAILY, (Reported) Allergies Coded Allergies: nitroglycerin (Verified Allergy, Unknown, 12/31/18) Past Medical History Medical History None Surgical History None Family History Significant Family History: No pertinent family hx Social History * Smoker: Denies Alcohol: Denies Drugs: denies A-FIB/CHADSVASC A-FIB History Current/History of A-Fib/PAF?: No Review of Systems Constitutional: Denies: Chills, Fever, Malaise, Night Sweats, Weakness, Fatigue, Weight Loss, Lethargy, Other Eyes: Denies: Pain, Vision change, Conjunctivae inflammation, Eyelid inflammation, Redness, Other ENT: Denies: Head Aches, Ear Pain, Dysphagia, Sinus Congestion, Post Nasal Drip, Sore Throat, Epistaxis, Other Symptoms Skin: Denies: Rash, Lesions, Jaundice, Bruising, Itching, Dry, Breakdown, Nail Changes, Other Pulmonary: Denies: Dyspnea, Cough, Pleuritic Chest Pain, Other Symptoms Cardiovascular: Denies: Chest Pain, Palpitations, Orthopnea, Paroxysmal Noc. Dyspnea, Edema, Lt Headedness, Other Symptoms Gastrointestinal: Denies: Nausea, Vomiting, Abdominal Pain, Diarrhea, Constipation, Melena, Hematochezia, Other Symptoms Genitourinary: Denies: Dysuria, Frequency, Incontinence, Hematuria, Retention, Other Symptoms Endocrine: Denies: Polydipsia, Polyphagia, Polyuria, Heat Intolerance, Cold Intolerance, Other Endocrine Sx Musculoskeletal: Reports: Other Symptoms (pain at the right side of chest and right arm) Neurological: Denies: Weakness, Numbness, Incoordination, Change in speech, Confusion, Seizures, Other Symptoms Psych: Denies: Mood Normal, Anxiety, Depression, Memory Issues, Thoughts of Self Harm, Anger, Thoughts of Harming Other, Other Psych Physical Examination General Exam: Positive: Alert, Cooperative Eye Exam: Positive: PERRLA, Conjunctiva & lids normal ENT Exam: Positive: Atraumatic, Mucous membr. moist/pink Neck Exam: Positive: Supple Chest Exam: Positive: Clear to auscultation, Normal air movement, Other (. Positive localized tenderness on right side of chest) Heart Exam: Positive: Rate Normal, Normal S1, Normal S2 Abdomen Exam: Positive: Normal bowel sounds, Soft Extremity Exam: Positive: Normal pulses, Other (sling on the right arm. Also positive tenderness on palpation of right chest wall) Skin Exam: Positive: Nl turgor and temperature Neuro Exam: Positive: Normal Gait, Normal Speech Psych Exam: Positive: Mental status NL, Mood NL Vital Signs Vital Signs Date Time Temp Pulse Resp B/P (MAP) Pulse Ox O2 Delivery O2 Flow Rate FiO2 12/31/18 01:14 97.9 97 18 147/87 (107) 97 Room Air Laboratory Data Labs 24H Laboratory Tests 2 12/31/18 01:29: POC pH (Misc Panel) 7.406, POC Base Excess (Misc Panel) 3.0, POC Saturated Percent O2 (Misc) 96, POC pO2 (Misc Panel) 86.0, POC pCO2 (Misc Panel) 43.4, POC HCO3 (Misc Panel) 27.3H, POC Total CO2 (Misc Panel) 29.0H Problems (1) Multiple rib fractures Status: Acute Problem Text: Admit patient to ICU for close observation And does have a small section of flail chest Patient will be evaluated by Dr. Ghotra in the morning and further, as per recommendation from thoracic surgery Patient has been started on morphine [employer] for pain control I will hold all his by mouth meds as he is nothing by mouth Fingerstick blood sugar every 6 hours with coverage DVT prophylaxis with bilateral SCDs Activity bed rest Further, as per Dr. Ghotra's recommendation (2) Type 2 diabetes, uncontrolled, with renal manifestation Status: Chronic Problem Text: As above Plan / VTE VTE Prophylaxis Ordered?: Yes ZURI KURTZ MD Dec 31, 2018 02:28
[2018-12-31] MEDS ORDERED: GLUCOSE 4 GM CHEW TABLET PO PRN (02:30)
[2018-12-31] MEDS ORDERED: DEXTROSE 50% 50 ML SYRINGE IV PRN (02:30)
[2018-12-31] MEDS ORDERED: GLUCAGON FOR INJ 1 MG VIAL (J1610) SC PRN (02:30)
[2018-12-31] MEDS: HumaLOG INSULIN (NovoLOG) PER UNIT SC SCH ×5 (03:43→20:11)
[2018-12-31] MEDS ORDERED: fentaNYL 100 MCG/2 ML INJECTION (J3010) IV SCH (06:00)
[2018-12-31] MEDS ORDERED: MIDAZOLAM INJ 2 MG/2 ML VIAL (J2250) IV SCH (06:00)
[2018-12-31] MEDS: LEVALBUTEROL 1.25 MG/0.5 ML CONCENTRATE NEB NEB SCH ×3 (08:00→20:41)
[2018-12-31 08:37] LABS: INR 1.01
[2018-12-31 08:47] LABS: ALBUMIN 3.3 GM/DL (3.2-5.2); BILIRUBIN,TOTAL 0.4 MG/DL (0.2-1.0); CALCIUM LEVEL 8.9 MG/DL (8.5-10.1); CREATININE FOR GFR 1.36 MG/DL (0.70-1.30); GLOMERULAR FILTRATION RATE 57.1 (>56); POTASSIUM SERUM 3.7 MEQ/L (3.5-5.1); TOTAL PROTEIN 7.3 GM/DL (6.4-8.2)
[2018-12-31] MEDS ORDERED: LEVALBUTEROL 1.25 MG/0.5 ML CONCENTRATE NEB NEB PRN (09:00)
[2018-12-31] MEDS ORDERED: NORCO, ANEXSIA 5/325MG TABLET (HYDROcodone/ACETAMINOPHEN) PO PRN (09:00)
[2018-12-31] MEDS ORDERED: KCL 20MEQ IN D5/NS 1000ML 1,000 ML IV SCH (09:00)
[2018-12-31] MEDS ORDERED: PERCOCET 5MG/325MG TAB PO PRN ×2 (09:00)
[2018-12-31] MEDS ORDERED: ACETAMINOPHEN TAB 650MG DOSE (2X325MG) PO PRN (09:00)
[2018-12-31 09:44] LABS: BASO % 0.5 % (0.0-1.0); EOS # 0.2 10^3/uL (0.0-0.50); EOS % 2.2 % (0.0-3.0); HEMATOCRIT 38.8 % (42.0-52.0); HEMOGLOBIN 12.7 g/dl (13.5-17.5); LYMPH # 2.5 10^3/uL (1.5-4.5); LYMPH % 32.7 % (24.0-44.0); MEAN CORPUSCULAR HEMOGLOBIN 28.1 pg (27.0-33.0); MEAN CORPUSCULAR HGB CONC 32.7 g/dl (32.0-36.5); MEAN CORPUSCULAR VOLUME 85.8 fl (80.0-96.0); MONO # 0.5 10^3/uL (0.0-0.8); MONO % 6.4 % (0.0-5.0); NEUTROPHILS # 4.5 10^3/uL (1.8-7.7); NEUTROPHILS % 57.8 % (36.0-66.0); PLATELET COUNT, AUTOMATED 282 10^3/uL (150-450); RED BLOOD COUNT 4.52 10^6/uL (4.30-6.10); WHITE BLOOD COUNT 7.7 10^3/uL (4.0-10.0)
[2018-12-31] MEDS: MOM 30ML SUSPENSION UDC PO SCH (09:46)
[2018-12-31] MEDS: PANTOPRAZOLE 40MG TAB (PROTONIX) PO SCH (09:47)
[2018-12-31] MEDS: HEPARIN SOD (PORCINE) 5000 UNITS/ML VIAL SC SCH ×2 (09:47→20:11)
[2018-12-31] MEDS: DOCUSATE SODIUM 100 MG CAP PO SCH ×2 (09:47→20:11)
[2018-12-31] MEDS: VENLAFAXINE **XR** 75MG CAPSULE PO SCH (10:56)
[2018-12-31] MEDS: CHLORTHALIDONE 25 MG TAB PO SCH (10:57)
[2018-12-31] MEDS ORDERED: FENTANYL 2MCG/ML BUPIVACAINE 0.0625% NACL 250ML IV BAG As Ordered ONE (11:07)
[2018-12-31] MEDS ORDERED: MIDAZOLAM INJ 2 MG/2 ML VIAL (J2250) As Ordered ONE (11:20)
[2018-12-31] MEDS ORDERED: fentaNYL 100 MCG/2 ML INJECTION (J3010) As Ordered ONE (11:20)
--- NOTE | 2018-12-31 12:16 | CR ---
DATE OF CONSULTATION: 12/31/2018 Last night, I received a call from [facility] regarding Mr. Melissa asking for transfer. I accepted him in transfer and instructed that he could go to the emergency room. The consultation was requested by Dr. Mooney, hospitalist at [facility]. HISTORY OF PRESENT ILLNESS: The patient is a 58-year-old white male who was lifting a freezer out of his truck and stepped backwards. He tripped and landed on a tree stump. It is documented that he fell 80 feet, which is hard to believe. According to the patient, he just fell backwards and hit a tree stump. Transfer was requested as general surgeon did not "feel comfortable" taking care of this type of multiple trauma. When he fell down, he felt immediate pain in his right chest with shortness of breath, which only lasted for a few minutes. The pain continued and he sought medical attention at [facility]. Prior to this, he had no cough or fever, chills or sweats and no dysphagia. He had no chest pain prior to this. There was no weight loss. There was no loss of consciousness and he did not feel faint prior to his fall. A chest CT is read as having multiple rib fractures with flail segment. PAST MEDICAL HISTORY: 1. Hypertension. 2. Diabetes. 3. Major depressive disorder. 4. Posttraumatic stress disorder (recently seen in mental health in August of 2018). PAST SURGICAL HISTORY: None. ALLERGIES: Listed as NITROGLYCERIN. MEDICATIONS AT HOME: - aspirin 81 mg every day - chlorthalidone 25 mg every day - clotrimazole 10 mg fives times a day - glimepiride 4 mg every day - Magic Mouthwash 5 mL suspension four times a day - Metformin 1000 mg twice a day - omeprazole 40 mg every day - venlafaxine 300 mg every day TRAVEL HISTORY: He has been to [place] and to [place]. He has also been to the [facility]. 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 EXPOSURES: No dogs, birds, or cats at home. HABITS: Chews tobacco and he stopped in the last 3 weeks. Has only rarely smoked cigarettes. OTHER EXPOSURES: No exposures to tuberculosis. REVIEW OF SYSTEMS: CONSTITUTIONAL: Without fever, chills, sweats, or night sweats. Without weight loss. EYES: Without diplopia. Without amaurosis fugax. Without prior jaundice. NOSE: Used to have epistaxis but none in the last few years. MOUTH: Has a sore on his tongue, for which he has seen urgent care who thought that he might have a tongue malignancy. He has his own teeth. PULMONARY: See history of present illness (HPI). CARDIAC: See HPI. No prior history of myocardial infarctions, intermittent claudication, or leg edema. GASTROINTESTINAL (GI): Without nausea, vomiting, diarrhea, constipation, melena, hematochezia, hematemesis, or abdominal pain. ENDOCRINE: With diabetes. Without thyroid disease. GENITOURINARY (): Without dysuria, hematuria, or prior renal stones. PSYCHIATRIC: With the above depressive disorder recently treated this spring in mental [facility]. NEUROLOGIC: Without paresthesias, paralyses, or prior seizures. PHYSICAL EXAMINATION: Well-developed, well-nourished white male, in moderate distress with chest discomfort and chest pain particularly with inspiration. Temperature 98.0 with a heart rate of 88 in a sinus rhythm, respiratory rate of 16 without the use of accessory muscles, 95% saturated on room air and whose blood pressure is 160/96. Eyes: Pupils equal, round, and reactive to light. Extraocular motors intact. Sclerae nonicteric. Nose without deformity. Mouth shows his mucous membranes to be pink and moist. Lips and commissures without lesions There is no thrush. I palpated his tongue. I do not feel a tongue mass, nor do I feel buccal masses or palatine masses. Head is normocephalic. Neck is supple. There is no jugular venous distention (JVD). No subcutaneous emphysema. Trachea is midline. Lungs show equal breath sounds on either side with a percussion note. He is tender in the anterior lateral right lower chest. He has indentation below the scapula on his right chest. Cardiac exam without murmurs, clicks, gallops, or rubs. I cannot feel his point of maximal impulse (PMI). S1, S2 are normal. Abdomen is soft, nontender. Bowel sounds are positive. There is no hepatomegaly. No costovertebral angle (CVA) tenderness. However, he is very distended and tympanitic with hypoactive bowel sounds. Extremities show no pretibial edema. No calf tenderness. No differential swelling of the upper extremities. Skin is warm, dry, and perfused without cyanosis or mottling, including that of the nail beds and the knees. Neurologic shows II-XII intact, along with gross motor and gross sensation intact. Gait is not tested. Psychiatric shows him to be awake and alert, oriented times three with appropriate mood, affect and conversational. INVESTIGATIONS: His white count is 7.7 with hemoglobin and hematocrit of 12.7 and 38.8, respectively. Platelet count is 282 and differential shows 57% neutrophils, 32% lymphocytes, and 6% monocytes. There are no immature forms, no toxic granulations. Electrolytes are essentially normal with a BUN and creatinine of 23 and 1.36, up from his baseline of 1.2-1.3. Glucose is 131 with a calcium of 8.9. Corresponding albumin is 3.3 with an AST and ALT of 45 and 86, slightly elevated. His PT/INR are 13.0 and 1.01, respectively. His chest x-ray today done portably in the emergency room shows a minimally displaced 6th rib fracture. Lungs are quite expanded to the chest wall. There is no subcutaneous emphysema and costophrenic angles are sharp. Chest CT done at [facility] was read as multiple rib fractures with a flail segment. They were read as acute fractures of the right 3rd, 4th, and 5th anterior ribs and acute fractures of 4, 5, 6, 7, 8, and 9 posterior lateral ribs giving him a flail segment of #4 and #5. I frankly do not see those on the chest CT. I only definitively see two rib fractures. There is a little bit of subcutaneous emphysema in the intercostal space but there is no pneumothorax. IMPRESSION: 1. Multiple rib fractures and probable flail chest. 2. Diabetes. 3. Hypertension. 4. Need for pain control. 5. History of major depressive disorder. PLAN AND DISCUSSION: For his pain control, I will ask anesthesia to place an epidural. I will eventually reorder a CT scan to see if this reading is correct or whether it is an over read at [facility]. Had this not been at 11 o'clock last night the patient's problems could very well have been easily handled at [facility] rather than having to be transferred here.
[2018-12-31] MEDS ORDERED: METOCLOPRAMIDE INJ 10MG/2ML VIAL (J2765) IV PRN (13:00)
[2018-12-31] MEDS ORDERED: WALLBOXKEY XX PRN (13:00)
[2018-12-31] MEDS: FENTANYL/BUPIVACAINE/NACL BAG 250 ML EPIDURAL SCH (13:00)
--- NOTE | 2018-12-31 13:47 | IPNPDOC ---
Date Seen The patient was seen on 12/31/18. Progress Note SUBJECTIVE: Patient is a 58 year-old male with a past medical history of Type 2 diabetes mellitus, hypertension, Major depressive disorder, post traumatic stress disorder, biliary colic who presented to the ER with a chest wall injury. Patient had an accident on 12/30/2018 where he tripped and fell onto a tree stump. He felt right sided chest pain immediately after the accident. He went to the [facility] and was transferred to [facility]. Dr. 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 Patient was examined at bedside. He had just received a dose of morphine and rated his pain as a 3/10. Patient was tired but overall feeling fine, is content with pain management, and has an appetite. Dr. Ghotra visited him this am and patient had a thoracic epidural. He denies dyspnea, chest pain, palpitations, abdominal pain, nausea, vomiting, or crepitus. OBJECTIVE PHYSICAL EXAMINATION: VITAL SIGNS: Please see below. GENERAL: Patient has some confusion 2/2 to morphine but is alert and cooperative HEENT: NC AT, mucous membranes moist CARDIOVASCULAR: regular rate and rhythm, no murmurs heard RESPIRATORY: Clear to auscultation, equal air intake bilaterally, tender to palpation over right anterior portion of lower ribcage ABDOMINAL: soft, nontender to palpation, normal bowel sounds EXTREMITIES: No edema or cyanosis noted NEUROLOGICAL: no focal deficits, alert and oriented x3 PSYCHOLOGICAL: normal affect, history of major depressive disorder LABORATORY DATA, IMAGING STUDIES, MICROBIOLOGY: Please see below. 1. Chest X-ray 12/31/18: Nondisplaced right sixth rib fracture is identified along with trace left basilar atelectasis. No obvious effusion. No obvious pneumothorax. The mediastinum and cardiac silhouette are stable and within normal limits for portable technique. DVT prophylaxis ordered?: Yes, Heparin ASSESSMENT AND PLAN: Patient is a 58 year-old male with a past medical history of Type 2 diabetes mellitus, hypertension, Major depressive disorder, post traumatic stress disorder, biliary colic. PROBLEMS: 1. Rib fractures with slight flail chest -thoracic epidural for pain management, per Dr. Ghotra -Chest x-ray showed nondisplaced right sixth rib fracture -supportive care 2. Right sided tongue lesion -1-2mm white lesion -Patient has had for 10-20 years, became painful in last month -Dr. Mike consulted, scheduling patient to have biopsy in clinic tomorrow -concerns for malignancy 3. Left lower extremity edema -tender to palpation -ordered a doppler to rule out DVT 4. Chronic kidney disease stage 3 -baseline creatinine 1.3 5. Liver fibrosis -stage F1-F2 6. History of hepatitis A 7. Type 2 Diabetes Mellitus -Patient has uncontrolled diabetes -SS insulin -hold home medications 8. Hypertension -monitoring 9. Major depressive disorder -c/w venlafaxine DISPOSITION: Patient is stable and comfortable. Patient had thoracic epidural today to manage pain. Biopsy of tongue lesion schedule for tomorrow. We appreciate Dr. Ghotra and Dr. Mike for their input. I saw and evaluated the patient. I agree with the findings and plan of care as documented in the above note VS, I&O, 24H, Fishbone Vital Signs/I&O Vital Signs Date Time Temp Pulse Resp B/P (MAP) Pulse Ox O2 Delivery O2 Flow Rate FiO2 12/31/18 12:41 85 16 137/80 (99) 97 2 12/31/18 08:00 98.0 12/31/18 01:14 Room Air I&O- Last 24 Hours up to 6 AM 12/31/18 06:00 Intake Total 0 ml Output Total 0 ml Balance 0 ml Laboratory Data 24H LABS Laboratory Tests 2 12/31/18 01:29: POC pH (Misc Panel) 7.406, POC Base Excess (Misc Panel) 3.0, POC Saturated Percent O2 (Misc) 96, POC pO2 (Misc Panel) 86.0, POC pCO2 (Misc Panel) 43.4, POC HCO3 (Misc Panel) 27.3H, POC Total CO2 (Misc Panel) 29.0H 12/31/18 02:32: Bedside Glucose (Misc Panel) 169H 12/31/18 05:48: Bedside Glucose (Misc Panel) 144H 12/31/18 07:58: Immature Granulocyte % (Auto) 0.4, White Blood Count 7.7, Red Blood Count 4.52, Hemoglobin 12.7L, Hematocrit 38.8L, Mean Corpuscular Volume 85.8, Mean Corpuscular Hemoglobin 28.1, Mean Corpuscular Hemoglobin Concent 32.7, Red Cell Distribution Width 13.1, Platelet Count 282, Neutrophils (%) (Auto) 57.8, Lymphocytes (%) (Auto) 32.7, Monocytes (%) (Auto) 6.4H, Eosinophils (%) (Auto) 2.2, Basophils (%) (Auto) 0.5, Neutrophils # (Auto) 4.5, Lymphocytes # (Auto) 2.5, Monocytes # (Auto) 0.5, Eosinophils # (Auto) 0.2, Basophils # (Auto) 0.0, Nucleated Red Blood Cells % (auto) 0.0 12/31/18 08:05: Prothrombin Time 13.0, Prothromb Time International Ratio 1.01, Anion Gap 6L, Glomerular Filtration Rate 57.1, Blood Urea Nitrogen 23H, Creatinine 1.36H, Sodium Level 142, Potassium Level 3.7, Chloride Level 108H, Carbon Dioxide Level 28, Calcium Level 8.9, Aspartate Amino Transf (AST/SGOT) 45H, Alanine Aminotransferase (ALT/SGPT) 86H, Alkaline Phosphatase 88, Total Bilirubin 0.4, Total Protein 7.3, Albumin 3.3, Albumin/Globulin Ratio 0.83L CBC/BMP Laboratory Tests 12/31/18 07:58 Red Blood Count 4.52, Mean Corpuscular Volume 85.8, Mean Corpuscular Hemoglobin 28.1, Mean Corpuscular Hemoglobin Concent 32.7, Red Cell Distribution Width 13.1, Neutrophils (%) (Auto) 57.8, Lymphocytes (%) (Auto) 32.7, Monocytes (%) (Auto) 6.4 H, Eosinophils (%) (Auto) 2.2, Basophils (%) (Auto) 0.5, Neutrophils # (Auto) 4.5, Lymphocytes # (Auto) 2.5, Monocytes # (Auto) 0.5, Eosinophils # (Auto) 0.2, Basophils # (Auto) 0.0 12/31/18 08:05 Calcium Level 8.9, Aspartate Amino Transf (AST/SGOT) 45 H, Alanine Aminotransferase (ALT/SGPT) 86 H, Alkaline Phosphatase 88, Total Bilirubin 0.4, Total Protein 7.3, Albumin 3.3 MARYJORDYN OMS-3 Dec 31, 2018 13:47 JARAD RAND MD Jan 02, 2019 17:43
--- NOTE | 2018-12-31 16:16 | REP ---
Left lower extremity Duplex Doppler venous ultrasound: Real time compression and duplex Doppler interrogation of the left lower extremity deep venous system is performed. The left common femoral, superficial femoral and popliteal veins are fully compressible with transducer pressure and demonstrate normal spontaneous and phasic flow, without evidence of deep venous thrombosis. Impression: No evidence of deep venous thrombosis of the left lower extremity femoral popliteal venous system. Electronically Signed by Sukhdeep Shepard MD 12/31/2018 04:07 P
--- NOTE | 2018-12-31 20:43 | ECGEPIP ---
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
[2019-01-01] VITALS (7 sets, daily range): BP systolic 140–172; BP diastolic 83–96
[2019-01-01] MEDS: LEVALBUTEROL 1.25 MG/0.5 ML CONCENTRATE NEB NEB SCH ×4 (01:25→20:13)
[2019-01-01 04:58] LABS: BASO % 0.3 % (0.0-1.0); EOS # 0.2 10^3/uL (0.0-0.50); EOS % 2.4 % (0.0-3.0); HEMATOCRIT 37.3 % (42.0-52.0); HEMOGLOBIN 11.8 g/dl (13.5-17.5); LYMPH # 1.9 10^3/uL (1.5-4.5); LYMPH % 24.9 % (24.0-44.0); MEAN CORPUSCULAR HEMOGLOBIN 27.4 pg (27.0-33.0); MEAN CORPUSCULAR HGB CONC 31.6 g/dl (32.0-36.5); MEAN CORPUSCULAR VOLUME 86.7 fl (80.0-96.0); MONO # 0.5 10^3/uL (0.0-0.8); MONO % 6.3 % (0.0-5.0); NEUTROPHILS # 4.9 10^3/uL (1.8-7.7); NEUTROPHILS % 65.7 % (36.0-66.0); PLATELET COUNT, AUTOMATED 230 10^3/uL (150-450); WHITE BLOOD COUNT 7.4 10^3/uL (4.0-10.0)
[2019-01-01 05:33] LABS: BLOOD UREA NITROGEN 21 MG/DL (7-18); CALCIUM LEVEL 8.2 MG/DL (8.5-10.1); CARBON DIOXIDE LEVEL 26 MEQ/L (21-32); CHLORIDE LEVEL 104 MEQ/L (98-107); CREATININE FOR GFR 1.26 MG/DL (0.70-1.30); GLOMERULAR FILTRATION RATE > 60.0 (>56); GLUCOSE, FASTING 199 MG/DL (70-100); POTASSIUM SERUM 3.8 MEQ/L (3.5-5.1); SODIUM LEVEL 134 MEQ/L (136-145)
[2019-01-01] MEDS: HEPARIN SOD (PORCINE) 5000 UNITS/ML VIAL SC SCH ×2 (08:30→20:34)
[2019-01-01] MEDS: HumaLOG INSULIN (NovoLOG) PER UNIT SC SCH ×4 (08:30→20:35)
[2019-01-01] MEDS: DOCUSATE SODIUM 100 MG CAP PO SCH ×2 (08:31→20:34)
[2019-01-01] MEDS: ASPIRIN 81 MG ENTERIC TAB PO SCH (08:31)
[2019-01-01] MEDS: MOM 30ML SUSPENSION UDC PO SCH (08:31)
[2019-01-01] MEDS: PANTOPRAZOLE 40MG TAB (PROTONIX) PO SCH (08:31)
[2019-01-01] MEDS: VENLAFAXINE **XR** 75MG CAPSULE PO SCH (08:31)
[2019-01-01] MEDS: CHLORTHALIDONE 25 MG TAB PO SCH (08:31)
--- NOTE | 2019-01-01 11:04 | REP ---
PA and lateral chest: Comparison is 12/31/2018. Lung farrell are clear. Cardiac size is normal. The tawny and mediastinum are unremarkable. The patient has known multiple right rib fractures, however these are obscured on these PA and lateral plain films. There is an epidural catheter as an interval change. Impression: No acute cardiopulmonary findings. Epidural catheter. The patients known rib fractures are obscured. CT would be the most sensitive way to identify rib fractures. Electronically Signed by Sukhdeep Dorsey MD 01/01/2019 10:56 A
[2019-01-01] MEDS: LISINOPRIL 10 MG TAB PO SCH (11:58)
[2019-01-01] MEDS: FENTANYL/BUPIVACAINE/NACL BAG 250 ML EPIDURAL SCH (14:28)
--- NOTE | 2019-01-01 14:48 | IPNPDOC ---
Date Seen The patient was seen on 01/01/19. Progress Note SUBJECTIVE: Patient is a 58 year-old male with a past medical history of Type 2 diabetes mellitus, hypertension, Major depressive disorder, post traumatic stress disorder, biliary colic who presented to the ER with a chest wall injury. Patient had an accident on 12/30/2018 where he tripped and fell onto a tree stump. He felt right sided chest pain immediately after the accident. He went to the [facility] and was transferred to [facility]. Dr. 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 Patient was examined at bedside. He had an epidural catheter placed on 12/31/18 and his pain is well controlled. He rates the a pain as a 2/10 today and states that he feels better than he did yesterday. Patient is scheduled to see Dr. Martin brito today in clinic for biopsy of tongue lesion. His left leg does not appear swollen today and is not tender to palpation. Patient coughed up yellow sputum while I was in the room and states that he had been doing that for most of the morning. He continues to be afebrile; his blood pressure has been borderline high so we will start him on lisinopril. He denies nausea, vomiting, shortness of breath, chest pain, or palpitations. OBJECTIVE PHYSICAL EXAMINATION: VITAL SIGNS: Please see below. GENERAL: Patient is alert and cooperative HEENT: NC AT, mucous membranes moist, 1-2 mm white lesion on right side of tongue noted CARDIOVASCULAR: regular rate and rhythm, no murmurs heard RESPIRATORY: equal air intake bilaterally, tender to palpation over right anterior portion of lower ribcage ABDOMINAL: soft, nontender to palpation, normal bowel sounds EXTREMITIES: ecchymosis present on right arm proximal to elbow. Superficial abrasion noted on patients olecranon process. NEUROLOGICAL: no focal deficits, alert and oriented x3 PSYCHOLOGICAL: normal affect, history of major depressive disorder LABORATORY DATA, IMAGING STUDIES, MICROBIOLOGY: Please see below. 1. Chest X-ray 12/31/18: Nondisplaced right sixth rib fracture is identified along with trace left basilar atelectasis. No obvious effusion. No obvious pneumothorax. The mediastinum and cardiac silhouette are stable and within normal limits for portable technique. 2. Chest X-ray 01/01/19: No acute cardiopulmonary findings. Epidural catheter. The patients known rib fractures are obscured. CT would be the most sensitive way to identify rib fractures. 3. Vascular US 12/31/18: No evidence of deep venous thrombosis of the left lower extremity femoral popliteal venous system. DVT prophylaxis ordered?: Yes, Heparin ASSESSMENT AND PLAN: Patient is a 58 year-old male with a past medical history of Type 2 diabetes mellitus, hypertension, Major depressive disorder, post traumatic stress disorder, biliary colic PROBLEMS: 1. Rib fractures with slight flail chest -thoracic epidural catheter placed 12/31/18 for pain management, per Dr. Ghotra -Chest x-ray showed nondisplaced right sixth rib fracture -supportive care -Pain rated as 2/10 today 2. Right sided tongue lesion -1-2mm white lesion -Patient has had for 10-20 years, became painful in last month -Dr. Mike consulted, scheduling patient to have biopsy in clinic today -concerns for malignancy 3. Left lower extremity edema -less edema noted today, not tender to palpation -Vascular US was negative for DVT 4. Chronic kidney disease stage 3 -baseline creatinine 1.3 -BUN 21 today 5. Liver fibrosis -stage F1-F2 6. History of hepatitis A 7. Type 2 Diabetes Mellitus -Patient has uncontrolled diabetes -SS insulin -hold home medications 8. Hypertension -Blood pressure elevated today -Patient started on lisinopril 9. Major depressive disorder -c/w venlafaxine DISPOSITION: Patient is stable and comfortable. Tongue biopsy scheduled for today to rule out malignancy. Patients pain is being managed well with epidural catheter. His prognosis is good; we are providing supportive care at this time. We appreciate Dr. Mike and Dr. Ghotra for their input. I saw and evaluated the patient. I agree with the findings and plan of care as documented in the above note VS, I&O, 24H, Fishbone Vital Signs/I&O Vital Signs Date Time Temp Pulse Resp B/P (MAP) Pulse Ox O2 Delivery O2 Flow Rate FiO2 01/01/19 11:58 165/93 01/01/19 04:00 97.4 81 16 100 2.0 12/31/18 01:14 Room Air I&O- Last 24 Hours up to 6 AM 01/01/19 06:00 Intake Total 2121 ml Output Total 1700 ml Balance 421 ml Laboratory Data 24H LABS Laboratory Tests 2 12/31/18 17:42: Bedside Glucose (Misc Panel) 187H 12/31/18 20:08: Bedside Glucose (Misc Panel) 237H 01/01/19 04:46: Immature Granulocyte % (Auto) 0.4, White Blood Count 7.4, Red Blood Count 4.30, Hemoglobin 11.8L, Hematocrit 37.3L, Mean Corpuscular Volume 86.7, Mean Corpuscular Hemoglobin 27.4, Mean Corpuscular Hemoglobin Concent 31.6L, Red Cell Distribution Width 12.8, Platelet Count 230, Neutrophils (%) (Auto) 65.7, Lymphocytes (%) (Auto) 24.9, Monocytes (%) (Auto) 6.3H, Eosinophils (%) (Auto) 2.4, Basophils (%) (Auto) 0.3, Neutrophils # (Auto) 4.9, Lymphocytes # (Auto) 1.9, Monocytes # (Auto) 0.5, Eosinophils # (Auto) 0.2, Basophils # (Auto) 0.0, Nucleated Red Blood Cells % (auto) 0.0, Anion Gap 4L, Glomerular Filtration Rate > 60.0, Blood Urea Nitrogen 21H, Creatinine 1.26, Sodium Level 134#L, Potassium Level 3.8, Chloride Level 104, Carbon Dioxide Level 26, Calcium Level 8.2L, Magnesium Level 2.0 01/01/19 08:27: Bedside Glucose (Misc Panel) 168H 01/01/19 13:51: Bedside Glucose (Misc Panel) 185H CBC/BMP Laboratory Tests 01/01/19 04:46 Red Blood Count 4.30, Mean Corpuscular Volume 86.7, Mean Corpuscular Hemoglobin 27.4, Mean Corpuscular Hemoglobin Concent 31.6 L, Red Cell Distribution Width 12.8, Neutrophils (%) (Auto) 65.7, Lymphocytes (%) (Auto) 24.9, Monocytes (%) (Auto) 6.3 H, Eosinophils (%) (Auto) 2.4, Basophils (%) (Auto) 0.3, Neutrophils # (Auto) 4.9, Lymphocytes # (Auto) 1.9, Monocytes # (Auto) 0.5, Eosinophils # (Auto) 0.2, Basophils # (Auto) 0.0, Calcium Level 8.2 L JORDYN HERNANDEZ [facility] Jan 01, 2019 14:48 JARAD RAND MD Jan 02, 2019 17:49
[2019-01-02] VITALS (8 sets, daily range): BP systolic 121–153; BP diastolic 66–80
[2019-01-02] MEDS: LEVALBUTEROL 1.25 MG/0.5 ML CONCENTRATE NEB NEB SCH ×4 (00:35→20:23)
[2019-01-02 04:42] LABS: BASO % 0.3 % (0.0-1.0); EOS # 0.2 10^3/uL (0.0-0.50); EOS % 2.2 % (0.0-3.0); HEMATOCRIT 34.2 % (42.0-52.0); HEMOGLOBIN 11.2 g/dl (13.5-17.5); LYMPH # 1.9 10^3/uL (1.5-4.5); LYMPH % 25.4 % (24.0-44.0); MEAN CORPUSCULAR HEMOGLOBIN 28.2 pg (27.0-33.0); MEAN CORPUSCULAR HGB CONC 32.7 g/dl (32.0-36.5); MEAN CORPUSCULAR VOLUME 86.1 fl (80.0-96.0); MONO # 0.5 10^3/uL (0.0-0.8); MONO % 6.4 % (0.0-5.0); NEUTROPHILS # 4.9 10^3/uL (1.8-7.7); NEUTROPHILS % 65.4 % (36.0-66.0); PLATELET COUNT, AUTOMATED 229 10^3/uL (150-450); RED BLOOD COUNT 3.97 10^6/uL (4.30-6.10); WHITE BLOOD COUNT 7.4 10^3/uL (4.0-10.0)
[2019-01-02 05:03] LABS: BLOOD UREA NITROGEN 22 MG/DL (7-18); CALCIUM LEVEL 8.8 MG/DL (8.5-10.1); CARBON DIOXIDE LEVEL 30 MEQ/L (21-32); CHLORIDE LEVEL 99 MEQ/L (98-107); CREATININE FOR GFR 1.34 MG/DL (0.70-1.30); GLOMERULAR FILTRATION RATE 58.1 (>56); GLUCOSE, FASTING 194 MG/DL (70-100); POTASSIUM SERUM 3.3 MEQ/L (3.5-5.1); SODIUM LEVEL 136 MEQ/L (136-145)
[2019-01-02] MEDS ORDERED: POTASSIUM CHLORIDE 10 MEQ SR TABLET PO ONE (07:45)
[2019-01-02] MEDS: HumaLOG INSULIN (NovoLOG) PER UNIT SC SCH ×4 (08:37→21:00)
[2019-01-02] MEDS: HEPARIN SOD (PORCINE) 5000 UNITS/ML VIAL SC SCH ×2 (08:37→21:03)
[2019-01-02] MEDS: MOM 30ML SUSPENSION UDC PO SCH (08:37)
[2019-01-02] MEDS: ASPIRIN 81 MG ENTERIC TAB PO SCH (08:38)
[2019-01-02] MEDS: CHLORTHALIDONE 25 MG TAB PO SCH (08:38)
[2019-01-02] MEDS: DOCUSATE SODIUM 100 MG CAP PO SCH ×2 (08:38→21:02)
[2019-01-02] MEDS: PANTOPRAZOLE 40MG TAB (PROTONIX) PO SCH (08:38)
[2019-01-02] MEDS: VENLAFAXINE **XR** 75MG CAPSULE PO SCH (08:38)
[2019-01-02] MEDS: LISINOPRIL 10 MG TAB PO SCH (08:38)
--- NOTE | 2019-01-02 08:55 | REP ---
PA and lateral chest: Comparison 01/01/2019. The lung farrell are clear. Cardiac size upper normal, unchanged. The tawny, mediastinum, skeletal structures are unchanged. The epidural catheter is unchanged. Impression: There is no interval change per Electronically Signed by Sukhdeep Dorsey MD 01/02/2019 08:47 A
--- NOTE | 2019-01-02 08:57 | IPN ---
DATE: 01/01/2019 This is now the first epidural day for Mr. Melissa after suffering multiple fractures on the right side. After his epidural was placed yesterday, he is feeling almost pain free. He is very content and now much happier. He is able to take deep breaths and uses an incentive spirometer and cough. His vital signs show a T-max of 98.8 with a heart rate that ranges between 81 and 93 in a predominantly sinus rhythm with a blood pressure that ranges between 172/96 to 140/91, a respiratory rate of 14 to 22 without the use of accessory muscles, who is 95% to 100% saturated on 2 liters nasal cannula. His intake and output the past 24 hours has been recorded as 1953 in and 1175 out for a positivity of 778 mL. All of his output has been via urine. Weight today is not recorded. On physical examination, his lungs show normal vesicular sounds. I hear no wheezes, rhonchi or rales and his percussion note is full to the diaphragm. Cardiac Exam: Without murmurs, clicks, gallops, or rubs. I cannot feel his PMI. S1 and S2 are normal. Abdomen: Soft. Nontender. Bowel sounds are positive. There is no hepatomegaly. No costovertebral angle (CVA) tenderness on the left side and CVA tenderness referable to the rib fractures on the right. Extremities: Show trace pretibial edema. No calf tenderness. No differential swelling of the upper extremities. Skin: Warm, dry and perfused. Without cyanosis or mottling, including that of the nail beds and knees. Neck: Supple. There is no jugular venous distention. No subcutaneous emphysema. Trachea is midline. Mouth: Shows his mucous membranes to be pink and moist. Lips and commissures are without lesions. There is no thrush. Eyes: Show his pupils to be equal and reactive. Extraocular movements intact. Sclerae nonicteric. Neurologic: Shows II-XII intact along with gross motor and gross sensation intact. Gait is not tested. Psychiatric shows him to be awake, alert, and oriented times three with appropriate mood and affect and conversational. His white count today is 7.4 with hemoglobin and hematocrit of 11.8 and 37.3 respectively with a platelet count of 230. Differential shows 65% neutrophils, 24% lymphocytes and 6% monocytes. There are no immature forms and no toxic granulations. His electrolytes today show a marginally low sodium of 134 with the remainder of his electrolytes normal with a BUN and creatinine of 21 and 1.26. Glucose is 199 with a calcium of 8.2 and a magnesium of 2.0. His chest x-ray shows his lung fully expanded to the chest wall. The costophrenic angles are sharp and there is no evidence of a resulting hemothorax. Lateral chest x-ray does not show any infiltrates posteriorly, although there may be a small bit of blunting of the costophrenic angle posteriorly on the right side. IMPRESSION: 1. Multiple rib fractures, equivocal flail chest. 2. Diabetes. 3. Hypertension. 4. Need for pain control, now successfully resolved with an epidural. 5. History of major depressive disorder. PLAN AND DISCUSSION: As we have now gotten his pain under control and this is epidural day #1, I would plan to keep the epidural in for five days and then wean him and transition him to oral pain medication. The underlying treatment of rib fractures is pain control so they do not progress to atelectasis with a resultant possible pneumonia. We are undertaking chest expansion therapy, including PEP and incentive spirometry. He can certainly move to the progressive care unit (PCU) whenever there is a bed.
--- NOTE | 2019-01-02 12:51 | IPN ---
DATE: 01/02/2019 Mr. Melissa is still in the intensive care unit (ICU). He has not been transferred to the progressive care unit (PCU) because of bed availability. He is doing quite well and his pain is being well controlled with the epidural. This is now epidural day #2. His vital signs show a T-max of 98.8 with a heart rate that ranges between 999 and 86 in a predominantly sinus rhythm, a respiratory rate of 16 to 22 without the use of accessory muscles, who is 94% saturated now on room air and whose blood pressure is ranging between 146/88 to 127/74. His intake and output the past 24 hours has been recorded as 1872 in and 2175 out for a negativity of 300 mL. He weighs 85 kg today compared to 83.1 kg two days ago. He has not yet had a bowel movement. On physical examination, his lungs show normal vesicular sounds on either side without wheezes, rhonchi or rales. Percussion note is full to the diaphragm. Cardiac Exam: Without murmurs, clicks, gallops, or rubs. I cannot feel his PMI. S1 and S2 are normal. Abdomen: Distended and tympanitic. It is however nontender and bowel sounds are positive. There is no hepatomegaly that I can appreciate, nor is there costovertebral angle (CVA) tenderness. Extremities: Show no pretibial edema. No calf tenderness. No differential swelling of the upper extremities. Skin: Warm, dry and perfused. Without cyanosis or mottling, including that of the nail beds and knees. Neck: Supple. There is no jugular venous distention. No subcutaneous emphysema. Trachea is midline. Mouth: Shows his mucous membranes to be pink and moist. Lips and commissures are without lesions. There is no thrush. Eyes: Show his pupils to be equal and reactive. Extraocular movements intact. Sclerae nonicteric. Neurologic: Shows II-XII intact along with gross motor and gross sensation intact. Gait is not tested. Psychiatric shows him to be awake, alert, and oriented times three with appropriate mood and affect and conversational. His white count today is 7.4 with hemoglobin and hematocrit of 11.2 and 34.2, essentially unchanged from yesterday, with a platelet count of 229. Differential shows 65% neutrophils, 25% lymphocytes and 6% monocytes. There are no immature forms and no toxic granulations. Electrolytes show a potassium of 3.3, with BUN and creatinine of 22 and 1.34. Glucose is 194 and a calcium is 8.8. Chest x-ray today shows the lung is fully expanded to the chest wall. The costophrenic angles are sharp. He has a lot of bowel gas in the left upper quadrant. Diaphragms are both elevated secondary to intra-abdominal pressure. Cardiac silhouette is normal. There is no mediastinal widening. There is no subcutaneous emphysema. IMPRESSION: 1. Multiple fractured ribs. 2. Problematic pain control, well addressed with the epidural. 3. Diabetes. 4. Hypertension. 5. History of major depressive disorder. PLAN AND DISCUSSION: This is epidural day #2. As noted yesterday, we will keep the epidural in for five days and then wean it and transition him to oral pain control. I have asked the nursing staff to give him suppositories in order to get his bowels moving as he is becoming quite distended.
[2019-01-02 12:57] LABS: ALBUMIN 2.9 GM/DL (3.2-5.2); ALT/SGPT 74 U/L (12-78); BILIRUBIN,DIRECT < 0.1 MG/DL (0.0-0.2); BILIRUBIN,TOTAL 0.2 MG/DL (0.2-1.0); TOTAL PROTEIN 6.9 GM/DL (6.4-8.2)
--- NOTE | 2019-01-02 15:07 | IPNPDOC ---
Text Note Date of Service The patient was seen on 01/02/19. NOTE Subjective: Patient examined at bedside, in ICU as PCU status. States he is feeling well and has no complaints today. No events overnight. He reports pain is under control. No f/c/n/v/abd pain/cp/sob. Objective: Physical exam General exam: Alert and cooperative, A&O 3, NAD Eye exam: PERRLA, EOMI ENT: Atraumatic, normocephalic, mucous membranes moist Neck: Supple Cardiac: RRR, normal S1 & S2, no murmurs Respiratory: CTAB, good air exchange, no wheezing, rhonchi, or rales; equal chest rise b/l. Epidural in place. No crepitus Abdomen: normoactive bowel sounds, soft, nontender, mildly distended Extremity: 2+ radial pulses, no edema or tenderness Skin: [place], warm, dry, no visible rash or lesions Neuro: no focal deficit Assessment/Plan: Multiple vertebral fractures 2/2 trauma from fall pain is well-controlled. Stable, good respiratory status Thoracic epidural catheter placed 12/31/2018 by anesthesia Pain management as per anesthesia and Dr. Ghotra, appreciate input Right-sided tongue lesion 1-2 mm white papule. Patient states he has had this for about 20 years, however concern of malignancy given the excruciating increase in pain over the past month and active tobacco chewing on that same side for the past [address] Mike was consulted 12/31/18. Per his recommendation, patient was to have this biopsied at his office 01/01. Hypokalemia Supplemented Transaminitis AST/ALT 45/86 on admission. Normalized upon recheck today. Likely was 2/2 recent injury on that same side CKD Stage 3 renal function at baseline 1.2-1.4 Liver fibrosis with hx of of Hepatitis A & fatty liver stage F1-F2 in 2017 Type 2 diabetes mellitus Uncontrolled with A1c 9.5 in 06/2018 [facility] inpatient. Patient counseled on weight loss and diet and exercise Hypertension controlled after started on Lisinopril continue home Chlorthalidone Major depressive disorder stable, continue venlafaxine Disposition: Pain control as per anesthesia and Dr. Ghotra. Continue monitoring. Dr. Mike consulted for right tongue lesion. Otherwise is doing well medically. I saw and evaluated the patient. I agree with the findings and plan of care as documented in the above note VS,Fishbone, I+O VS, Fishbone, I+O Laboratory Tests 01/02/19 04:31 Red Blood Count 3.97 L, Mean Corpuscular Volume 86.1, Mean Corpuscular Hemoglobin 28.2, Mean Corpuscular Hemoglobin Concent 32.7, Red Cell Distribution Width 12.6, Neutrophils (%) (Auto) 65.4, Lymphocytes (%) (Auto) 25.4, Monocytes (%) (Auto) 6.4 H, Eosinophils (%) (Auto) 2.2, Basophils (%) (Auto) 0.3, Neutrophils # (Auto) 4.9, Lymphocytes # (Auto) 1.9, Monocytes # (Auto) 0.5, Eosinophils # (Auto) 0.2, Basophils # (Auto) 0.0 Vital Signs Date Time Temp Pulse Resp B/P (MAP) Pulse Ox O2 Delivery O2 Flow Rate FiO2 01/02/19 08:38 121/79 01/02/19 08:11 97.1 97 20 95 01/01/19 08:00 2.0 12/31/18 01:14 Room Air I&O- Last 24 Hours up to 6 AM 01/02/19 06:00 Intake Total 1752 ml Output Total 1900 ml Balance -148 ml BERTA LOERA DO Jan 02, 2019 15:07 JARAD RAND MD Jan 04, 2019 16:32
[2019-01-02] MEDS: FENTANYL/BUPIVACAINE/NACL BAG 250 ML EPIDURAL SCH (15:42)
[2019-01-02] MEDS: BISACODYL 10 MG SUPP PR PRN (16:06)
[2019-01-02] MEDS ORDERED: SLF 3 ML SYR IV PRN (18:45)
[2019-01-02] MEDS: SLF 3 ML SYR IV SCH (21:05)
[2019-01-03] VITALS (19 sets, daily range): BP systolic 130–188; BP diastolic 67–93; O2SAT 91–99
[2019-01-03] MEDS: LEVALBUTEROL 1.25 MG/0.5 ML CONCENTRATE NEB NEB SCH ×4 (01:53→20:22)
[2019-01-03 04:54] LABS: BASO % 0.3 % (0.0-1.0); EOS # 0.2 10^3/uL (0.0-0.50); EOS % 2.3 % (0.0-3.0); HEMATOCRIT 34.7 % (42.0-52.0); HEMOGLOBIN 11.3 g/dl (13.5-17.5); LYMPH # 2.1 10^3/uL (1.5-4.5); LYMPH % 31.9 % (24.0-44.0); MEAN CORPUSCULAR HEMOGLOBIN 28.2 pg (27.0-33.0); MEAN CORPUSCULAR HGB CONC 32.6 g/dl (32.0-36.5); MEAN CORPUSCULAR VOLUME 86.5 fl (80.0-96.0); MONO # 0.5 10^3/uL (0.0-0.8); MONO % 7.4 % (0.0-5.0); NEUTROPHILS # 3.8 10^3/uL (1.8-7.7); NEUTROPHILS % 57.6 % (36.0-66.0); PLATELET COUNT, AUTOMATED 244 10^3/uL (150-450); RED BLOOD COUNT 4.01 10^6/uL (4.30-6.10); WHITE BLOOD COUNT 6.6 10^3/uL (4.0-10.0)
[2019-01-03 05:15] LABS: CALCIUM LEVEL 8.7 MG/DL (8.5-10.1); CREATININE FOR GFR 1.45 MG/DL (0.70-1.30); POTASSIUM SERUM 3.5 MEQ/L (3.5-5.1)
[2019-01-03] MEDS: SLF 3 ML SYR IV SCH ×3 (06:24→21:18)
[2019-01-03] MEDS: MOM 30ML SUSPENSION UDC PO SCH (08:14)
[2019-01-03] MEDS: PANTOPRAZOLE 40MG TAB (PROTONIX) PO SCH (08:15)
[2019-01-03] MEDS: VENLAFAXINE **XR** 75MG CAPSULE PO SCH (08:15)
[2019-01-03] MEDS: DOCUSATE SODIUM 100 MG CAP PO SCH ×2 (08:15→21:16)
[2019-01-03] MEDS: LISINOPRIL 10 MG TAB PO SCH (08:15)
[2019-01-03] MEDS: ASPIRIN 81 MG ENTERIC TAB PO SCH (08:15)
[2019-01-03] MEDS: CHLORTHALIDONE 25 MG TAB PO SCH (08:15)
[2019-01-03] MEDS: HEPARIN SOD (PORCINE) 5000 UNITS/ML VIAL SC SCH ×2 (08:16→21:17)
[2019-01-03] MEDS: HumaLOG INSULIN (NovoLOG) PER UNIT SC SCH ×4 (08:28→21:00)
--- NOTE | 2019-01-03 12:09 | IPNPDOC ---
Date Seen The patient was seen on 01/03/19. Progress Note Subjective: Patient reports feeling well he tells me that his pain is well-controlled he is not having any difficulty with deep breaths or any significant cough. Ll. No f/c/n/v/abd pain/cp/sob. Objective: Physical exam: Vital C please see below General exam: Alert and cooperative, A&O 3, NAD lying flat in bed Eye exam: PERRLA, EOMI ENT: normocephalic, mucous membranes moist Neck: Supple no elevation CVP Cardiac: RRR, normal S1 & S2, no murmurs Respiratory: CTAB, good air exchange, no wheezing, rhonchi, or rales; equal chest rise b/l. Epidural in place. No crepitus Abdomen: normoactive bowel sounds, soft, nontender, obese Extremity: 2+ radial pulses, no edema or tenderness Skin: [place], warm, dry, no visible rash or lesions Neuro: no focal deficit Labs: Please see below Imaging: Please review medical record Assessment/Plan: This is a 58-year-old man with multiple rib fractures secondary to a fall. 1. Multiple rib fractures 2/2 trauma from fall: Pain control with epidural continue as per Dr. Ghotra's recommendation today is day 3 of 5 as per thoracic surgery's recommendations. Following this he can likely be discharged home on by mouth pain medication continue with incentive from a tree and encourage ambulation 2. Right-sided tongue lesion: 1-2 mm white papule. Patient states he has had this for about 20 years, however concern of malignancy given the excruciating increase in pain over the past month and active tobacco chewing on that same side for the past [address] Mike was consulted 12/31/18. Per his recommendation, patient was to have this biopsied at his office 01/01. Follow-up results outpatient 3. Hypokalemia: Resolved with supplementation 4. Transaminitis: Upon admission resolved, likely secondary to trauma in inside. with hx of of Hepatitis A & fatty liver stage F1-F2 in 2017 5. CKD Stage 3: renal function at baseline 1.2-1.4 6. Type 2 diabetes mellitus Uncontrolled with A1c 9.5 in 06/2018 [facility] inpatient. Patient counseled on weight loss and diet and exercise 7. Hypertension: controlled after started on Lisinopril, continue home Chlorthalidone 8. Major depressive disorder: stable, continue venlafaxine 9. Gastroesophageal reflux disease: Continue with PPI Disposition: Discharge home in pain adequately controlled with by mouth medications VS, I&O, 24H, Hari Vital Signs/I&O Vital Signs Date Time Temp Pulse Resp B/P (MAP) Pulse Ox O2 Delivery O2 Flow Rate FiO2 01/03/19 09:18 88 143/79 (100) 01/03/19 08:00 97.4 20 94 01/01/19 08:00 2.0 12/31/18 01:14 Room Air I&O- Last 24 Hours up to 6 AM 01/03/19 05:59 Intake Total 939 ml Output Total 900 ml Balance 39 ml Laboratory Data 24H LABS Laboratory Tests 2 01/02/19 12:37: Bedside Glucose (Misc Panel) 198H 01/02/19 17:32: Bedside Glucose (Misc Panel) 184H 01/02/19 20:57: Bedside Glucose (Misc Panel) 218H 01/03/19 04:28: Immature Granulocyte % (Auto) 0.5, White Blood Count 6.6, Red Blood Count 4.01L, Hemoglobin 11.3L, Hematocrit 34.7L, Mean Corpuscular Volume 86.5, Mean Corpuscular Hemoglobin 28.2, Mean Corpuscular Hemoglobin Concent 32.6, Red Cell Distribution Width 12.8, Platelet Count 244, Neutrophils (%) (Auto) 57.6, Lymphocytes (%) (Auto) 31.9, Monocytes (%) (Auto) 7.4H, Eosinophils (%) (Auto) 2.3, Basophils (%) (Auto) 0.3, Neutrophils # (Auto) 3.8, Lymphocytes # (Auto) 2.1, Monocytes # (Auto) 0.5, Eosinophils # (Auto) 0.2, Basophils # (Auto) 0.0, Nucleated Red Blood Cells % (auto) 0.0, Anion Gap 6L, Glomerular Filtration Rate 53.0L, Blood Urea Nitrogen 26H, Creatinine 1.45H, Sodium Level 137, Potassium Level 3.5, Chloride Level 100, Carbon Dioxide Level 31, Calcium Level 8.7 01/03/19 11:44: Bedside Glucose (Misc Panel) 189H CBC/BMP Laboratory Tests 01/03/19 04:28 Red Blood Count 4.01 L, Mean Corpuscular Volume 86.5, Mean Corpuscular Hemoglobin 28.2, Mean Corpuscular Hemoglobin Concent 32.6, Red Cell Distribution Width 12.8, Neutrophils (%) (Auto) 57.6, Lymphocytes (%) (Auto) 31.9, Monocytes (%) (Auto) 7.4 H, Eosinophils (%) (Auto) 2.3, Basophils (%) (Auto) 0.3, Neutrophils # (Auto) 3.8, Lymphocytes # (Auto) 2.1, Monocytes # (Auto) 0.5, Eosinophils # (Auto) 0.2, Basophils # (Auto) 0.0, Calcium Level 8.7 JARAD RAND MD Jan 03, 2019 12:09
[2019-01-03] MEDS: FENTANYL/BUPIVACAINE/NACL BAG 250 ML EPIDURAL SCH (17:35)
[2019-01-04] VITALS (20 sets, daily range): BP systolic 143–158; BP diastolic 67–100; O2SAT 92–97
[2019-01-04] MEDS: LEVALBUTEROL 1.25 MG/0.5 ML CONCENTRATE NEB NEB SCH ×4 (01:41→19:37)
[2019-01-04] MEDS: SLF 3 ML SYR IV SCH ×3 (06:00→20:15)
[2019-01-04 06:20] LABS: BASO % 0.4 % (0.0-1.0); EOS # 0.2 10^3/uL (0.0-0.50); EOS % 2.2 % (0.0-3.0); HEMATOCRIT 39.9 % (42.0-52.0); HEMOGLOBIN 12.9 g/dl (13.5-17.5); LYMPH # 2.2 10^3/uL (1.5-4.5); LYMPH % 28.4 % (24.0-44.0); MEAN CORPUSCULAR HEMOGLOBIN 28.2 pg (27.0-33.0); MEAN CORPUSCULAR HGB CONC 32.3 g/dl (32.0-36.5); MEAN CORPUSCULAR VOLUME 87.1 fl (80.0-96.0); MONO # 0.5 10^3/uL (0.0-0.8); MONO % 6.4 % (0.0-5.0); NEUTROPHILS # 4.9 10^3/uL (1.8-7.7); NEUTROPHILS % 61.8 % (36.0-66.0); PLATELET COUNT, AUTOMATED 307 10^3/uL (150-450); RED BLOOD COUNT 4.58 10^6/uL (4.30-6.10); WHITE BLOOD COUNT 7.8 10^3/uL (4.0-10.0)
[2019-01-04 06:43] LABS: CALCIUM LEVEL 9.7 MG/DL (8.5-10.1); CREATININE FOR GFR 1.41 MG/DL (0.70-1.30); GLOMERULAR FILTRATION RATE 54.8 (>56); POTASSIUM SERUM 3.9 MEQ/L (3.5-5.1)
[2019-01-04] MEDS: HumaLOG INSULIN (NovoLOG) PER UNIT SC SCH ×4 (07:19→20:14)
--- NOTE | 2019-01-04 07:51 | REP ---
PA and lateral chest: Comparison is 01/02/2018. The the patient has known right rib fractures. A nondisplaced fracture of the right sixth rib is visible on the study today. There is no pneumothorax, hemothorax or pulmonary contusion. Lung farrell are clear. Cardiac size is normal. The tawny, mediastinum, skeletal structures are unremarkable. The epidural catheter is unchanged. Impression: There is no interval change. A fracture of the right sixth rib is now visible. Electronically Signed by Sukhdeep Dorsey MD 01/03/2019 07:59 A
--- NOTE | 2019-01-04 07:52 | IPN ---
DATE: 01/03/2019 Mr. Melissa's pain is still being well controlled with the epidural. He is up and around walking. He is able to take deep breaths and cough. His vital signs show a maximum temperature (t-max) of 98.2 with a heart rate that ranges between 79 and 90 in a sinus rhythm, respiratory rate of 18 to 20 without the use of accessory muscles, who is 93 to 94% saturated now on room air and whose blood pressure is ranging between 153/80 to 188/93. His intake and output the past 24 hours has been recorded as 939 in and 1000 out for near equality. He weighs 84 kg today compared to 85.1 kg yesterday. PHYSICAL EXAMINATION: LUNGS: His lungs show equal breath sounds on either side with normal vesicular sounds. Percussion note is full to the diaphragm. CARDIAC EXAM: Without murmurs, clicks, gallops or rubs. I cannot feel his point of maximum impulse (PMI). S1, S2 are normal. ABDOMEN: Much softer today but still tympanitic and distended. He had two bowel movements yesterday. Bowel sounds are positive. There is no hepatomegaly. No costovertebral angle tenderness. EXTREMITIES: Show no pretibial edema. No calf tenderness. No differential swelling of the upper extremities. SKIN: Warm, dry and perfused without cyanosis or mottling, including that of the nail beds and knees. NECK: Supple. There is no jugular venous distention. No subcutaneous emphysema. Trachea is midline. MOUTH: Shows his mucous membranes to be pink and moist. Lips and commissures without lesions. There is no thrush. EYES: Show his pupils to be equal and reactive. Extraocular motion intact. Sclerae anicteric. NEUROLOGIC: Shows II through XII intact with gross motor and gross sensation intact. Gait is not tested. PSYCHIATRIC: Shows him to be awake and alert, oriented times three with appropriate mood and affect and conversational. His white count today is 6.6 with hemoglobin and hematocrit of 11.3 and 34.7 with a platelet count of 244. Differential shows 57% neutrophils, 31% lymphocytes and 7% monocytes. There are no immature forms and no toxic granulations. His chemistries show normal electrolytes with a BUN and creatinine of 26 and 1.45, up from 22 and 1.34 yesterday. Glucose is 189 with a calcium of 8.7. Chest x-ray today shows the lung is fully expanded to the chest wall. The costophrenic angles are sharp. There is some minor blunting of the costophrenic angle posteriorly on the lateral film but no infiltrates. At least one rib fracture can be clearly seen. IMPRESSION: 1. Multiple fractured ribs. 2. Problematic pain control, well addressed with the epidural. 3. Diabetes. 4. Hypertension. 5. History of major depressive disorder. PLAN AND DISCUSSION: This is epidural day number 3. We will plan to wean the epidural on day 5, i.e. Friday and transition to oral pain medications and hopefully discharge him on Friday. So far things are going very well for him and he is able to take deep breaths and cough and he has not developed any infiltrates.
[2019-01-04] MEDS: MOM 30ML SUSPENSION UDC PO SCH (08:27)
[2019-01-04] MEDS: DOCUSATE SODIUM 100 MG CAP PO SCH ×2 (08:28→20:13)
[2019-01-04] MEDS: VENLAFAXINE **XR** 75MG CAPSULE PO SCH (08:28)
[2019-01-04] MEDS: LISINOPRIL 10 MG TAB PO SCH (08:28)
[2019-01-04] MEDS: PANTOPRAZOLE 40MG TAB (PROTONIX) PO SCH (08:28)
[2019-01-04] MEDS: ASPIRIN 81 MG ENTERIC TAB PO SCH (08:28)
[2019-01-04] MEDS: BISACODYL 10 MG SUPP PR PRN (08:29)
[2019-01-04] MEDS: CHLORTHALIDONE 25 MG TAB PO SCH (08:29)
--- NOTE | 2019-01-04 08:35 | REP ---
Clinical: History of flail chest. Technique: PA and lateral. Comparison: 01/03/2019. Findings: Mediastinum and cardiac silhouette are normal. The lung farrell are clear and without consolidation, obvious effusion, or pneumothorax. The known right rib fracture is not definitively appreciated by current examination and no comminuted or displaced rib fractures are currently identified. Epidural catheter remains stable. Impression: 1. No obvious acute cardiopulmonary process. 2. No evidence for displaced or comminuted rib fracture. Electronically Signed by Blas Damon MD 01/04/2019 08:26 A
[2019-01-04] MEDS: HEPARIN SOD (PORCINE) 5000 UNITS/ML VIAL SC SCH ×2 (08:39→20:14)
--- NOTE | 2019-01-04 11:56 | IPNPDOC ---
Date Seen The patient was seen on 01/04/19. Progress Note SUBJECTIVE: Patient is a 58 year-old male with a past medical history of Type 2 diabetes mellitus, hypertension, Major depressive disorder, post traumatic stress disorder, biliary colic who presented to the ER with a chest wall injury. Patient had an accident on 12/30/2018 where he tripped and fell onto a tree stump. He felt right sided chest pain immediately after the accident. He went to the [facility] and was transferred to [facility]. Dr. Ghotra was consulted and the patient was admitted and placed on morphine [employer]. Patient was examined at bedside. He is still using the epidural catheter for pain management. Patient states that his pain is 4/10 today, which is elevated from a 2/10 on 01/01/19. Mr. Melissa is constipated and his abdomen is visually distended. He admits to experiencing shortness of breath while laying in bed today and while walking around yesterday. He denies chest pain, palpitations, nausea, vomiting, or diarrhea. Mr. Melissa is schedule to have tongue lesion biopsy 01/05/[address] Mike office. OBJECTIVE PHYSICAL EXAMINATION: VITAL SIGNS: Please see below. GENERAL: Patient is alert and cooperative. Patient appears flushed HEENT: NC AT, mucous membranes moist, 1-2 mm white lesion on right side of tongue noted CARDIOVASCULAR: regular rate and rhythm, no murmurs heard RESPIRATORY: equal air intake bilaterally, tender to palpation over right anterior portion of lower ribcage ABDOMINAL: distended and firm to palpation. Slight discomfort on palpation. EXTREMITIES: ecchymosis present on right arm proximal to elbow. Superficial abrasion noted on patients olecranon process. NEUROLOGICAL: no focal deficits, alert and oriented x3 PSYCHOLOGICAL: normal affect, history of major depressive disorder LABORATORY DATA, IMAGING STUDIES, MICROBIOLOGY: Please see below. Chest X-ray 01/04/19: 1. No obvious acute cardiopulmonary process 2. No evidence for displaced or comminuted rib fracture DVT prophylaxis ordered?: ASSESSMENT AND PLAN: Patient is a 58 year-old male with a past medical history of Type 2 diabetes mellitus, hypertension, Major depressive disorder, post traumatic stress disorder, biliary colic PROBLEMS: 1. Rib fractures with slight flail chest -thoracic epidural catheter placed 12/31/18 for pain management, per Dr. Ghotra -Chest x-ray showed nondisplaced right sixth rib fracture -Day #4 of 5 of epidural catheter, transition patient to PO pain medication on Day #5-per Dr. Ghotra -Pain rated as 4/10 today 2. Constipation -possibly exacerbated by opioid use and being sedentary -currently on dulcolax suppository, colace, and senokot -encouraged ambulation around floor with assistance -can add additional bowel care medication as needed 3. Right sided tongue lesion -1-2mm white lesion -Patient has had for 10-20 years, became painful in last month -Dr. Mike consulted on 12/31/18 patient scheduled for outpatient biopsy 01/05/19 -concerns for malignancy 4. Chronic kidney disease stage 3 -baseline creatinine 1.3 -BUN 21 today 5. Liver fibrosis -stage F1-F2 6. History of hepatitis A 7. Type 2 Diabetes Mellitus -Patient has uncontrolled diabetes -SS insulin -hold home medications -Patient on consistent carbohydrate diet 8. Hypertension -Blood pressure elevated today 143/82 -c/w lisinopril 9. Major depressive disorder -c/w venlafaxine 10. GERD -c/w PPI DISPOSITION: Patient is stable and prognosis is good. Providing pain management, switching to PO pain medication tomorrow. Hopefully discharging patient in next [address] appreciate [address]. Ghotra's input. Patient scheduled for tongue lesion biopsy with Dr. Mike 01/05/19. I saw and evaluated the patient. I agree with the findings and plan of care as documented in the above note VS, I&O, 24H, Fishbone Vital Signs/I&O Vital Signs Date Time Temp Pulse Resp B/P (MAP) Pulse Ox O2 Delivery O2 Flow Rate FiO2 01/04/19 10:00 93 Room Air 01/04/19 08:28 158/98 01/04/19 08:00 96.6 85 18 01/01/19 08:00 2.0 I&O- Last 24 Hours up to 6 AM 01/04/19 06:00 Intake Total 1200 ml Output Total 525 ml Balance 675 ml Laboratory Data 24H LABS Laboratory Tests 2 01/03/19 16:27: Bedside Glucose (Misc Panel) 218H 01/03/19 21:15: Bedside Glucose (Misc Panel) 229H 01/04/19 05:46: Immature Granulocyte % (Auto) 0.8, White Blood Count 7.8, Red Blood Count 4.58, Hemoglobin 12.9L, Hematocrit 39.9L, Mean Corpuscular Volume 87.1, Mean Corpuscular Hemoglobin 28.2, Mean Corpuscular Hemoglobin Concent 32.3, Red Cell Distribution Width 13.0, Platelet Count 307, Neutrophils (%) (Auto) 61.8, Lymphocytes (%) (Auto) 28.4, Monocytes (%) (Auto) 6.4H, Eosinophils (%) (Auto) 2.2, Basophils (%) (Auto) 0.4, Neutrophils # (Auto) 4.9, Lymphocytes # (Auto) 2.2, Monocytes # (Auto) 0.5, Eosinophils # (Auto) 0.2, Basophils # (Auto) 0.0, Nucleated Red Blood Cells % (auto) 0.0, Anion Gap 4L, Glomerular Filtration Rate 54.8L, Blood Urea Nitrogen 27H, Creatinine 1.41H, Sodium Level 135L, Potassium Level 3.9, Chloride Level 98, Carbon Dioxide Level 33H, Calcium Level 9.7 CBC/BMP Laboratory Tests 01/04/19 05:46 Red Blood Count 4.58, Mean Corpuscular Volume 87.1, Mean Corpuscular Hemoglobin 28.2, Mean Corpuscular Hemoglobin Concent 32.3, Red Cell Distribution Width 13.0, Neutrophils (%) (Auto) 61.8, Lymphocytes (%) (Auto) 28.4, Monocytes (%) (Auto) 6.4 H, Eosinophils (%) (Auto) 2.2, Basophils (%) (Auto) 0.4, Neutrophils # (Auto) 4.9, Lymphocytes # (Auto) 2.2, Monocytes # (Auto) 0.5, Eosinophils # (Auto) 0.2, Basophils # (Auto) 0.0, Calcium Level 9.7 JORDYN HERNANDEZ S-3 Jan 04, 2019 11:56 JARAD RAND MD Jan 04, 2019 16:39
[2019-01-04] MEDS: SENOKOT S TAB PO SCH ×2 (12:31→20:14)
[2019-01-04] MEDS: FENTANYL/BUPIVACAINE/NACL BAG 250 ML EPIDURAL SCH (17:38)
--- NOTE | 2019-01-04 18:34 | IPN ---
DATE: 01/04/2019 This is now the 4th epidural day for Mr. Melissa. His pain is being fairly well controlled, though he feels a little bit more sleepy today. His epidural was going at 8, now will reduce it to 6 today. His vital signs show a maximum temperature (T max) of 99.0 with a heart rate that ranges between 85 and 79 in a predominantly sinus rhythm, respiratory rate of 18 to 20 without the use of accessory muscles who is 97% saturated on room air and whose blood pressure is ranging between 158/98 to 130/67. His intake and output over the past 24 hours has been recorded as 1200 in and 675 out for a positivity of 525 mL. There is no weight on him today. His admission weight was 83 kg with yesterday's weight being 84 kg. On physical examination, I detect crackles in both lower bases with the right greater than the left. Percussion note is full to the diaphragm, however. The crackles clear with coughing. Cardiac exam is without murmurs, clicks, gallops or rubs. I cannot feel his point of maximum impulse (PMI). S1, S2 are normal. Abdomen is soft and nontender but distended and tympanitic. He had a bowel movement yesterday. Bowel sounds are positive. Extremities show no pretibial edema. No calf tenderness. No differential swelling of the upper extremities. Skin is warm, dry and perfused without cyanosis or mottling, including that of the nail beds and the knees. Neck is supple. There is no jugular venous distention, no subcutaneous emphysema. Trachea is midline. Mouth shows his mucous membranes to be pink and moist. Lips and commissures without lesions. There is no thrush. Eyes show his pupils to be equal and reactive. Extraocular motions intact. Sclerae anicteric. Neurologic shows II-XII intact along with gross motor and gross sensation intact. Gait is not tested. Psychiatric shows him to be awake and alert, oriented times three with appropriate mood and affect and conversational. His white count today is 7.8 with a hemoglobin and hematocrit of 12.9 and 39.9 respectively with a platelet count of 307. His differential shows 61% neutrophils, 28% lymphocytes, 6% monocytes. There are no immature forms. No toxic granulations. His electrolytes are essentially normal with a marginally high total CO2 of 33. BUN and creatinine are 27 and 1.41 respectively with a glucose of 200 and a calcium of 9.7. His chest x-ray today shows his lung fully expanded to the chest wall. There is no pneumothorax. There is no subcutaneous emphysema. Costophrenic angles are sharp. The blunting of the right costophrenic angle on the lateral film was better. IMPRESSION: 1. Multiple rib fractures. 2. Problematic pain control, addressed with the epidural. 3. Diabetes. 4. Hypertension. 5. History of major depressive disorder. 6. Increased somnolence. PLAN AND DISCUSSION: I will decrease his epidural to 6 mL an hour. Tomorrow will completely wean it off and transition him to oral pain control. I have asked him to get up around and walk some more and also to use his chest expansion apparati.
[2019-01-05] VITALS (13 sets, daily range): BP systolic 134–162; BP diastolic 83–90; O2SAT 92–97
[2019-01-05] MEDS: BISACODYL 10 MG SUPP PR PRN (00:38)
[2019-01-05] MEDS: LEVALBUTEROL 1.25 MG/0.5 ML CONCENTRATE NEB NEB SCH ×4 (01:57→20:19)
[2019-01-05 05:51] LABS: BASO % 0.4 % (0.0-1.0); EOS # 0.2 10^3/uL (0.0-0.50); HEMATOCRIT 36.8 % (42.0-52.0); HEMOGLOBIN 12.1 g/dl (13.5-17.5); LYMPH # 2.2 10^3/uL (1.5-4.5); LYMPH % 26.9 % (24.0-44.0); MEAN CORPUSCULAR HEMOGLOBIN 27.4 pg (27.0-33.0); MEAN CORPUSCULAR HGB CONC 32.9 g/dl (32.0-36.5); MEAN CORPUSCULAR VOLUME 83.4 fl (80.0-96.0); MONO # 0.6 10^3/uL (0.0-0.8); MONO % 7.5 % (0.0-5.0); NEUTROPHILS % 62.6 % (36.0-66.0); PLATELET COUNT, AUTOMATED 285 10^3/uL (150-450); RED BLOOD COUNT 4.41 10^6/uL (4.30-6.10)
[2019-01-05] MEDS: SLF 3 ML SYR IV SCH ×3 (06:02→22:18)
[2019-01-05 06:15] LABS: BLOOD UREA NITROGEN 28 MG/DL (7-18); CALCIUM LEVEL 9.6 MG/DL (8.5-10.1); CARBON DIOXIDE LEVEL 30 MEQ/L (21-32); CHLORIDE LEVEL 99 MEQ/L (98-107); CREATININE FOR GFR 1.28 MG/DL (0.70-1.30); GLOMERULAR FILTRATION RATE > 60.0 (>56); GLUCOSE, FASTING 218 MG/DL (70-100); SODIUM LEVEL 134 MEQ/L (136-145)
[2019-01-05] MEDS: HumaLOG INSULIN (NovoLOG) PER UNIT SC SCH ×4 (07:30→22:00)
[2019-01-05] MEDS: ASPIRIN 81 MG ENTERIC TAB PO SCH ×2 (09:00→12:10)
[2019-01-05] MEDS: HEPARIN SOD (PORCINE) 5000 UNITS/ML VIAL SC SCH ×3 (09:00→22:00)
--- NOTE | 2019-01-05 09:10 | REP ---
Clinical: Flail chest. Technique: PA and lateral. Comparison: 01/04/2019. Findings: Mediastinum and cardiac silhouette are stable. The epidural catheter unchanged. Lateral view suggests small pleural effusion. No obvious pneumothorax. Known right sixth rib fracture poorly identified on current examination. Impression: Lateral view suggest small pleural effusion. No pneumothorax. Electronically Signed by Blas Damon MD 01/05/2019 09:01 A
[2019-01-05] MEDS: VENLAFAXINE **XR** 75MG CAPSULE PO SCH (09:11)
[2019-01-05] MEDS: CHLORTHALIDONE 25 MG TAB PO SCH (09:14)
[2019-01-05] MEDS: DOCUSATE SODIUM 100 MG CAP PO SCH ×2 (09:14→21:00)
[2019-01-05] MEDS: SENOKOT S TAB PO SCH ×2 (09:14→22:00)
[2019-01-05] MEDS: LISINOPRIL 10 MG TAB PO SCH (09:14)
[2019-01-05] MEDS: PANTOPRAZOLE 40MG TAB (PROTONIX) PO SCH (09:15)
[2019-01-05] MEDS: MOM 30ML SUSPENSION UDC PO SCH (09:15)
[2019-01-05] MEDS ORDERED: PERCOCET 5MG/325MG TAB PO PRN (09:45)
[2019-01-05] MEDS ORDERED: NORCO, ANEXSIA 5/325MG TABLET (HYDROcodone/ACETAMINOPHEN) PO PRN (09:45)
--- NOTE | 2019-01-05 11:42 | IPNPDOC ---
Text Note Date of Service The patient was seen on 01/05/19. NOTE 58 admitted for rib fx known to have a painful lesion of tongue. He uses ch valentin tobacco. Since admission this are of his tongue has "healed" and is not painful No other head and neck complaints Exam shows the oral/mobile tongue to be clear and no lesions are seen laterally or on tongue base If there are no visible lesions, then a biopsy is not necessary and should be avoided. REminded to quit tobacco products and return here as needed VS,Fishbone, I+O VS, Fishbone, I+O Laboratory Tests 01/05/19 05:32 Red Blood Count 4.41, Mean Corpuscular Volume 83.4, Mean Corpuscular Hemoglobin 27.4, Mean Corpuscular Hemoglobin Concent 32.9, Red Cell Distribution Width 12.8, Neutrophils (%) (Auto) 62.6, Lymphocytes (%) (Auto) 26.9, Monocytes (%) (Auto) 7.5 H, Eosinophils (%) (Auto) 2.0, Basophils (%) (Auto) 0.4, Neutrophils # (Auto) 5.0, Lymphocytes # (Auto) 2.2, Monocytes # (Auto) 0.6, Eosinophils # (Auto) 0.2, Basophils # (Auto) 0.0, Calcium Level 9.6 Vital Signs Date Time Temp Pulse Resp B/P (MAP) Pulse Ox O2 Delivery O2 Flow Rate FiO2 01/05/19 10:15 18 01/05/19 10:00 92 Room Air 01/05/19 09:19 97.1 87 153/83 (106) 01/01/19 08:00 2.0 I&O- Last 24 Hours up to 6 AM 01/05/19 05:59 Intake Total 2040 ml Output Total 900 ml Balance 1140 ml PADMA COHEN MD Jan 05, 2019 11:42
--- NOTE | 2019-01-05 12:00 | IPNPDOC ---
Date Seen The patient was seen on 01/05/19. Progress Note SUBJECTIVE: Patient is a 58 year-old male with a past medical history of Type 2 diabetes mellitus, hypertension, Major depressive disorder, post traumatic stress disorder, biliary colic who presented to the ER with a chest wall injury. Patient had an accident on 12/30/2018 where he tripped and fell onto a tree stump. He felt right sided chest pain immediately after the accident. He went to the [facility] and was transferred to [facility]. Dr. 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 Patient examined at bedside. He states that he feels "bad" today. When questioned further, he states that he is having aching pains all over his body and feels depressed. He rates his pain as a 5/10 while lying down and a 7/10 while ambulating. His depression stems from the fact that he lives alone and is worried that he will not be able to care for himself once discharged. We are working on setting up a PFS consult. He has felt nauseous today but denies vomiting. Patient's blood pressure is mildly elevated, most likely secondary to feeling poorly today and anxious about discharge. Will re-evaluate lisinopril dose if blood pressure is still elevated tomorrow. He denies chest pain, shortness of breath, palpitations. OBJECTIVE PHYSICAL EXAMINATION: VITAL SIGNS: Please see below. GENERAL: Patient is alert and cooperative. Patient appears flushed HEENT: NC AT, mucous membranes moist CARDIOVASCULAR: regular rate and rhythm, no murmurs heard RESPIRATORY: equal air intake bilaterally, tender to palpation over right anterior portion of lower ribcage ABDOMINAL: less distended than yesterday. Tenderness to palpation in RUQ. EXTREMITIES: ecchymosis present on right arm proximal to elbow. Superficial abrasion noted on patients olecranon process. NEUROLOGICAL: no focal deficits, alert and oriented x3 PSYCHOLOGICAL: feeling anxious and depressed today LABORATORY DATA, IMAGING STUDIES, MICROBIOLOGY: Please see below. Chest X-ray 01/05/19: Lateral view suggest small pleural effusion. No pneumothorax. DVT prophylaxis ordered?: Yes, TEDs and SCDs ASSESSMENT AND PLAN: Patient is a 58 year-old male with a past medical history of Type 2 diabetes mellitus, hypertension, Major depressive disorder, post t raumatic stress disorder, biliary colic PROBLEMS: 1. Rib fractures with slight flail chest -thoracic epidural catheter placed 12/31/18 for pain management, per Dr. Ghotra -Transition patient off of IV fentanyl today. C/w PO pain medications and Tylenol-per Dr. Ghotra -Pain rated as 7/10 today 2. Constipation -possibly exacerbated by opioid use and being sedentary -currently on dulcolax suppository, colace, and senokot -encouraged ambulation around floor with assistance -can add additional bowel care medication as needed -Patient had bowel movement yesterday and feels less bloated 3. Right sided tongue lesion -1-2mm white lesion -Patient has had for 10-20 years, became painful in last month -Patient seen by Dr. Mike 01/05/19, he noted that no lesion was seen and a biopsy was not necessary. He recommends the patient to stop using tobacco products and to return to his outpatient office as needed. 4. Chronic kidney disease stage 3 -baseline creatinine 1.3 -BUN 28 today 5. Liver fibrosis -stage F1-F2 6. History of hepatitis A 7. Type 2 Diabetes Mellitus -Patient has uncontrolled diabetes -SS insulin -hold home medications -Patient on consistent carbohydrate diet 8. Hypertension -Blood pressure elevated today 162/86 -c/w lisinopril 9. Major depressive disorder -c/w venlafaxine 10. GERD -c/w PPI DISPOSITION: Patient is stable and prognosis is good. Transitioned patient to PO pain medication today per Dr. Ghotra. We appreciate Dr. Ghotra and Dr. Mike for their input. Hoping to discharge patient in next 24-48 hours. VS, I&O, 24H, Fishbone Vital Signs/I&O Vital Signs Date Time Temp Pulse Resp B/P (MAP) Pulse Ox O2 Delivery O2 Flow Rate FiO2 01/05/19 10:15 18 01/05/19 10:00 92 Room Air 01/05/19 09:19 97.1 87 153/83 (106) 01/01/19 08:00 2.0 I&O- Last 24 Hours up to 6 AM 01/05/19 06:00 Intake Total 2040 ml Output Total 900 ml Balance 1140 ml Laboratory Data 24H LABS Laboratory Tests 2 01/04/19 17:12: Bedside Glucose (Misc Panel) 200H 01/04/19 19:58: Bedside Glucose (Misc Panel) 205H 01/05/19 05:32: Immature Granulocyte % (Auto) 0.6, White Blood Count 8.0, Red Blood Count 4.41, Hemoglobin 12.1L, Hematocrit 36.8L, Mean Corpuscular Volume 83.4, Mean Corpuscular Hemoglobin 27.4, Mean Corpuscular Hemoglobin Concent 32.9, Red Cell Distribution Width 12.8, Platelet Count 285, Neutrophils (%) (Auto) 62.6, Lymphocytes (%) (Auto) 26.9, Monocytes (%) (Auto) 7.5H, Eosinophils (%) (Auto) 2.0, Basophils (%) (Auto) 0.4, Neutrophils # (Auto) 5.0, Lymphocytes # (Auto) 2.2, Monocytes # (Auto) 0.6, Eosinophils # (Auto) 0.2, Basophils # (Auto) 0.0, Nucleated Red Blood Cells % (auto) 0.0, Anion Gap 5L, Glomerular Filtration Rate > 60.0, Blood Urea Nitrogen 28H, Creatinine 1.28, Sodium Level 134L, Potassium Level 4.0, Chloride Level 99, Carbon Dioxide Level 30, Calcium Level 9.6 CBC/BMP Laboratory Tests 01/05/19 05:32 Red Blood Count 4.41, Mean Corpuscular Volume 83.4, Mean Corpuscular Hemoglobin 27.4, Mean Corpuscular Hemoglobin Concent 32.9, Red Cell Distribution Width 12.8, Neutrophils (%) (Auto) 62.6, Lymphocytes (%) (Auto) 26.9, Monocytes (%) (Auto) 7.5 H, Eosinophils (%) (Auto) 2.0, Basophils (%) (Auto) 0.4, Neutrophils # (Auto) 5.0, Lymphocytes # (Auto) 2.2, Monocytes # (Auto) 0.6, Eosinophils # (Auto) 0.2, Basophils # (Auto) 0.0, Calcium Level 9.6 GME ATTESTATION GME ATTESTATION My faculty preceptor for this patient encounter was physically present during the encounter and was fully available. All aspects of the patient interview, examination, medical decision making process, and medical care plan development were reviewed and approved by the faculty preceptor. The faculty preceptor is aware and concurs with the plan as stated in the body of this note and will attest to such by his/her cosignature. ATTENDING NOTE I, Villa Sawyer, have independently examined this patient and performed my own physical exam, as well as reviewed the documentation and edited where necessary. I have discussed in detail with the resident / student the findings and plan of treatment as documented by the resident / student and edited their note. I agree with their findings and treatment plan and have edited their documentation. I will continue to follow the patient during this hospital stay. JORDYN HERNANDEZ OMS-3 Jan 05, 2019 12:00 VILLA SAWYER MD Jan 05, 2019 15:55
[2019-01-05] MEDS: FENTANYL/BUPIVACAINE/NACL BAG 250 ML EPIDURAL SCH (13:00)
[2019-01-05] MEDS: PERCOCET 5MG/325MG TAB PO PRN (18:40)
[2019-01-06] MEDS: PERCOCET 5MG/325MG TAB PO PRN ×3 (00:48→12:05)
[2019-01-06] MEDS: LEVALBUTEROL 1.25 MG/0.5 ML CONCENTRATE NEB NEB SCH ×2 (02:49→07:40)
[2019-01-06 04:00] VITALS: BP 137/91
[2019-01-06] MEDS: SLF 3 ML SYR IV SCH (05:47)
[2019-01-06 06:16] LABS: BASO % 0.5 % (0.0-1.0); EOS # 0.1 10^3/uL (0.0-0.50); EOS % 1.6 % (0.0-3.0); HEMATOCRIT 38.2 % (42.0-52.0); HEMOGLOBIN 12.5 g/dl (13.5-17.5); LYMPH # 2.5 10^3/uL (1.5-4.5); LYMPH % 29.8 % (24.0-44.0); MEAN CORPUSCULAR HEMOGLOBIN 27.6 pg (27.0-33.0); MEAN CORPUSCULAR HGB CONC 32.7 g/dl (32.0-36.5); MEAN CORPUSCULAR VOLUME 84.3 fl (80.0-96.0); MONO # 0.7 10^3/uL (0.0-0.8); MONO % 8.5 % (0.0-5.0); NEUTROPHILS # 4.8 10^3/uL (1.8-7.7); NEUTROPHILS % 58.7 % (36.0-66.0); PLATELET COUNT, AUTOMATED 296 10^3/uL (150-450); RED BLOOD COUNT 4.53 10^6/uL (4.30-6.10); WHITE BLOOD COUNT 8.2 10^3/uL (4.0-10.0)
[2019-01-06 06:41] LABS: CALCIUM LEVEL 9.3 MG/DL (8.5-10.1); CREATININE FOR GFR 1.46 MG/DL (0.70-1.30); GLOMERULAR FILTRATION RATE 52.6 (>56); POTASSIUM SERUM 3.9 MEQ/L (3.5-5.1)
[2019-01-06 08:00] VITALS: BP 168/100
--- NOTE | 2019-01-06 08:27 | REP ---
Clinical: Follow-up. Flail chest. Rib fracture . Comparison: 12/19/2018 . Technique: PA and lateral. Findings: The mediastinum and cardiac silhouette are normal. The lung farrell are clear and without acute consolidation, effusion, or pneumothorax. The skeletal structures appear intact and the previously identified right rib fracture is not visible. Impression: 1. No acute cardiopulmonary process. Electronically Signed by Blas Damon MD 01/06/2019 08:18 A
[2019-01-06] MEDS: MOM 30ML SUSPENSION UDC PO SCH (08:38)
[2019-01-06] MEDS: HumaLOG INSULIN (NovoLOG) PER UNIT SC SCH ×2 (08:38→12:00)
[2019-01-06] MEDS: HEPARIN SOD (PORCINE) 5000 UNITS/ML VIAL SC SCH (08:38)
[2019-01-06] MEDS: ASPIRIN 81 MG ENTERIC TAB PO SCH (08:39)
[2019-01-06] MEDS: PANTOPRAZOLE 40MG TAB (PROTONIX) PO SCH (08:39)
[2019-01-06] MEDS: CHLORTHALIDONE 25 MG TAB PO SCH (08:39)
[2019-01-06] MEDS: DOCUSATE SODIUM 100 MG CAP PO SCH (08:39)
[2019-01-06] MEDS: SENOKOT S TAB PO SCH (08:39)
[2019-01-06] MEDS: VENLAFAXINE **XR** 75MG CAPSULE PO SCH (08:39)
[2019-01-06 08:40] VITALS: BP 168/100
[2019-01-06] MEDS: LISINOPRIL 10 MG TAB PO SCH (08:40)
--- NOTE | 2019-01-06 08:50 | IPN ---
DATE: 01/05/2019 This is now Mr. Melissa's fifth epidural day. He is starting to feel some additional pain. We have begun the epidural wean. He is going to have his tongue biopsied today by ear, nose and throat (ENT). His vital signs show a maximum temperature (T-max) of 98.0 with a heart rate that ranges between 83 and 122 in predominantly sinus rhythm. Respiratory rate is 16-23 without the use of accessory muscles, who is 99-92% saturated on room air and his blood pressure is ranging between 162-86 to 134-40. His intake and output over the past 24 hours has been recorded as 2340 in and 700 out for a positivity of 1640 mL. He weighs 82.5 kilograms today compared to 84 kilos 2 days ago. On physical examination his lungs show normal vesicular sounds on either side. I do hear some faint rales right at the end of inspiration on the right base. Percussion note is full to the diaphragm. Cardiac exam is without murmurs, clicks, gallops or rubs. I cannot feel his point of maximum impulse (PMI). S1 and S2 are normal. Abdomen is soft and nontender. Bowel sounds are positive. There is no hepatomegaly. No costovertebral angle (CVA) tenderness. Extremities show no pretibial edema with no calf tenderness. No differential swelling of the upper extremities. Skin is warm, dry and perfused without cyanosis or mottling including that of the nail beds and knees. Neck is supple. There is no jugular venous distention. No subcutaneous emphysema. Trachea is midline. Mouth shows his mucous membranes to be pink and moist. Lips and commissures are without lesions. There is no thrush. Eyes show his pupils to be equal and reactive. Extraocular movements intact. Sclerae nonicteric. Neurologic shows II-XII intact along with gross motor and gross sensation intact. Gait is not tested. Psychiatric showed him to be awake, alert and oriented times three with appropriate and affect and conversational. His white count is 8.0 with hemoglobin and hematocrit of 12.1 and 38.8 respectively with a platelet count of 285 and stable. Differential shows 16% neutrophils, 26% lymphocytes and 7% monocytes. There are no immature forms or toxic granulations. His electrolytes today are essentially normal with BUN and creatinine of 28 and 1.28, which is improved over 27 and 1.41 yesterday. Calcium 9.0 with a glucose of 210. His chest x-ray today shows the lungs fully expanded to the chest wall with sharp costophrenic angles. The opacity in the posterior costophrenic angle on the lateral film is resolving. IMPRESSION: 1. Multiple rib fractures. 2. Problematic pain control addressed with the epidural. 3. Diabetes. 4. Hypertension. 5. History of major depressive disorder. 6. Decreased somnolence, improved. PLAN AND DISCUSSION: We will wean the epidural today. We will give him oral pain control during the wean. I have indicated that he should expect some pain from weaning the epidural but that it is important for him to continue his lung expansion therapy as well as ambulation. He is scheduled for tongue biopsy by Dr. Mike this morning.
[2019-01-06] MEDS ORDERED: LISI10TA4 PO (10:40)
[2019-01-06] MEDS ORDERED: PERCOCET PO (10:40)
[2019-01-06 10:45] VITALS: BP 142/88
[2019-01-06 12:00] VITALS: BP 130/90
--- NOTE | 2019-01-06 13:22 | DS.PDOC ---
Discharge Summary General Date of Admission Dec 31, 2018 at 02:15 Date of Discharge 01/06/19 Attending Physician: VILLA SAWYER MD Specialist/Consultants Involve: LIUDMILA PHILLIPS MD Discharge Summary PCP: Ashlyn Hussein MD PROCEDURES PERFORMED DURING STAY: - Thoracic epidural catheter placement ADMITTING DIAGNOSES: 1. Multiple rib fractures DISCHARGE DIAGNOSES: 1. Multiple rib fractures 2. Chronic kidney disease stage 3 3. Liver fibrosis 4. Type 2 Diabetes Mellitus 5. Hypertension 6. Major depressive disorder 7. GERD 8. History of Hepatitis A COMPLICATIONS/CHIEF COMPLAINT: Chest wall injury HISTORY OF PRESENT ILLNESS: Patient is a 58 year-old male with a past medical history of Type 2 diabetes mellitus, hypertension, Major depressive disorder, post traumatic stress disorder, biliary colic who presented to the ER with a chest wall injury. Patient had an accident on 12/30/2018 where he tripped and fell onto a tree stump. He felt right sided chest pain immediately after the accident. He went to the [facility] and was transferred to [facility]. Dr. Ghotra was consulted and the patient was admitted and placed on morphine [employer] HOSPITAL COURSE: While he was admitted his pain was managed with epidural and then he transitioned to PO pain control one day prior to discharge. He was encouraged to use lung expansion therapy as well ambulation to make sure he has good lung volume. There was discussion of about possible tongue biopsy of a while lesion on his right lateral tongue but when he was evaluated by Dr. Mike on the day of the procedure, the lesion had cleared up. Lastly his blood pressure was slightly elevated while he was admitted and he was started on lisinopril 10mg daily for control. Advised that pain can contribute to HTN and will need to follow up with PCP to make BP is controlled. On the day of discharge, he cleared PT and was stable to be sent home. DISCHARGE MEDICATIONS: Please see below. ALLERGIES: Please see below. PHYSICAL EXAMINATION ON DISCHARGE: VITAL SIGNS: Please see below. GENERAL: 58 year old well nourished male sitting on side of bed. Alert, cooperative, and in pleasant mood HEENT: NC AT, mucous membranes moist, no lesion noted on tongue CARDIOVASCULAR: regular rate and rhythm, no murmurs heard RESPIRATORY: equal air intake bilaterally, tender to palpation over right anterior portion of lower ribcage ABDOMINAL: less distended than yesterday. Tenderness to palpation in RUQ. EXTREMITIES: ecchymosis present on right arm proximal to elbow. Superficial a brasion noted on patients olecranon process. NEUROLOGICAL: no focal deficits, alert and oriented x3 PSYCHOLOGICAL: normal affect LABORATORY DATA: Please see below. IMAGIN. Chest X-ray 01/06/19: No acute cardiopulmonary process. 2. Chest X-ray 01/05/19: Lateral view suggest small pleural effusion. No pneumothorax. 3. Chest X-ray 01/04/19: 1. No obvious acute cardiopulmonary process 2. No regi dence for displaced or comminuted rib fracture 4. Chest X-ray 01/03/19: There is no interval change. A fracture of the right sixth rib is now visible. 5. Chest X-ray 01/02/19: The lung farrell are clear. Cardiac size upper normal, unchanged. The tawny, mediastinum, skeletal structures are unchanged. The epidural catheter is unchanged. 6. Chest X-ray 01/01/19: No acute cardiopulmonary findings. Epidural catheter. The patients known rib fractures are obscured. CT would be the most sensitive way to identify rib fractures. 7. Chest X-ray 12/31/18: Nondisplaced right sixth rib fracture is identified along with trace left basilar atelectasis. No obvious effusion. No obvious pneumothorax. The mediastinum and cardiac silhouette are stable and within normal limits for portable technique. 8. Vascular US 12/31/18: No evidence of deep venous thrombosis of the left lower extremity femoral popliteal venous system. PROGNOSIS: Good ACTIVITY: As tolerated DIET: Full diet DISPOSITION: Discharged home DISCHARGE INSTRUCTIONS: 1. Dr. Ghotra's office will call patient and make an appointment with him 2. No driving while on Percocet or with significant pain 3. Follow up with PCP on Blood pressure management. 4. Remain compliant with treatment plan and medications 5. Return to the ER if you experience any problems ITEMS TO FOLLOWUP ON OUTPATIENT: 1. Followup appointment in 3 weeks with chest X-ray. May break appointment if patient is feeling better. DISCHARGE CONDITION: Stable TIME SPENT ON DISCHARGE: Greater than 35 minutes. Vital Signs/I&Os Vital Signs Date Time Temp Pulse Resp B/P (MAP) Pulse Ox O2 Delivery O2 Flow Rate FiO2 01/06/19 12:05 17 95 01/06/19 10:45 142/88 (106) 01/06/19 08:00 97.5 88 01/06/19 06:00 Room Air 01/01/19 08:00 2.0 I&O- Last 24 Hours up to 6 AM 01/06/19 06:00 Intake Total 560 ml Output Total 475 ml Balance 85 ml Laboratory Data Labs 24H Laboratory Tests 2 01/05/19 16:59: Bedside Glucose (Misc Panel) 260H 01/05/19 21:52: Bedside Glucose (Misc Panel) 254H 01/06/19 05:25: Immature Granulocyte % (Auto) 0.9, White Blood Count 8.2, Red Blood Count 4.53, Hemoglobin 12.5L, Hematocrit 38.2L, Mean Corpuscular Volume 84.3, Mean Corpuscular Hemoglobin 27.6, Mean Corpuscular Hemoglobin Concent 32.7, Red Cell Distribution Width 12.8, Platelet Count 296, Neutrophils (%) (Auto) 58.7, Lymphocytes (%) (Auto) 29.8, Monocytes (%) (Auto) 8.5H, Eosinophils (%) (Auto) 1.6, Basophils (%) (Auto) 0.5, Neutrophils # (Auto) 4.8, Lymphocytes # (Auto) 2.5, Monocytes # (Auto) 0.7, Eosinophils # (Auto) 0.1, Basophils # (Auto) 0.0, Nucleated Red Blood Cells % (auto) 0.0, Anion Gap 7L, Glomerular Filtration Rate 52.6L, Blood Urea Nitrogen 35H, Creatinine 1.46H, Sodium Level 136, Potassium Level 3.9, Chloride Level 97L, Carbon Dioxide Level 32, Calcium Level 9.3 01/06/19 11:57: Bedside Glucose (Misc Panel) 240H CBC/BMP Laboratory Tests 01/06/19 05:25 Red Blood Count 4.53, Mean Corpuscular Volume 84.3, Mean Corpuscular Hemoglobin 27.6, Mean Corpuscular Hemoglobin Concent 32.7, Red Cell Distribution Width 12.8, Neutrophils (%) (Auto) 58.7, Lymphocytes (%) (Auto) 29.8, Monocytes (%) (Auto) 8.5 H, Eosinophils (%) (Auto) 1.6, Basophils (%) (Auto) 0.5, Neutrophils # (Auto) 4.8, Lymphocytes # (Auto) 2.5, Monocytes # (Auto) 0.7, Eosinophils # (Auto) 0.1, Basophils # (Auto) 0.0, Calcium Level 9.3 FSBS Laboratory Tests Test 01/05/19 16:59 01/05/19 21:52 01/06/19 11:57 Range/Units Bedside Glucose (Misc Panel) 260 254 240 70-105 MG/DL Discharge Medications Scheduled Aspirin (Aspirin EC) 81 Mg Tab, 81 MG PO DAILY, (Reported) Chlorthalidone (Chlorthalidone) 25 Mg Tab, 25 MG PO DAILY, (Reported) Clotrimazole (Clotrimazole) 10 Mg Lynne, 10 MG MT 5XD, (Reported) FOR 10 DAYS: STARTING 12/24/18 Glimepiride (Glimepiride) 4 Mg Tab, 4 MG PO DAILY, (Reported) Lisinopril (Lisinopril) 10 Mg Tablet, 10 MG PO DAILY Metformin HCl (Metformin HCl) 1,000 Mg Tab, 1,000 MG PO BID, (Reported) Omeprazole (Omeprazole) 40 Mg Cap, 40 MG PO DAILY, (Reported) Venlafaxine HCl (Venlafaxine HCl ER) 150 Mg Cap, 300 MG PO DAILY, (Reported) Scheduled PRN Oxycodone/Acetaminophen (Oxycodone-Acetaminophen 5-325) 1 Each Tablet, 1 TAB PO Q4HP PRN for MILD/MODERATE PAIN (PS 1-7) Allergies Coded Allergies: nitroglycerin (Verified Allergy, Unknown, 12/31/18) GME ATTESTATION GME ATTESTATION My faculty preceptor for this patient encounter was physically present during the encounter and was fully available. All aspects of the patient interview, examination, medical decision making process, and medical care plan development were reviewed and approved by the faculty preceptor. The faculty preceptor is aware and concurs with the plan as stated in the body of this note and will attest to such by his/her cosignature. ATTENDING NOTE I, Villa Sawyer, have independently examined this patient and performed my own physical exam, as well as reviewed the documentation and edited where necessary. I have discussed in detail with the resident / student the findings and plan of treatment as documented by the resident / student and edited their note. I agree with their findings and treatment plan and have edited their documentation. I will continue to follow the patient during this hospital stay. Time spent on discharge - 35 minutes JUICE GOYAL DO Jan 06, 2019 13:22 VILLA SAWYER MD Jan 06, 2019 15:12
== END 2019-01-06 14:17 | disposition home or self-care (01) | DRG 135 ==
LOC: M ED 01:04 → M ED INP 02:15 → M ICU 03:10 → M PCU 01-02 18:21
PROVIDERS: ADMIT Internal Medicine; ATTEND Internal Medicine
DX: S22.5XXA Flail chest, initial encounter for closed fracture (principal); E11.22 Type 2 diabetes mellitus with diabetic chronic kidney disease; E11.65 Type 2 diabetes mellitus with hyperglycemia; W22.8XXA Striking against or struck by other objects, initial encounter; Y92.89 Other specified places as the place of occurrence of the external cause; Z79.82 Long term (current) use of aspirin; Z79.84 Long term (current) use of oral hypoglycemic drugs; Z79.899 Other long term (current) drug therapy; Z88.8 Allergy status to other drugs, medicaments and biological substances; I10 Essential (primary) hypertension; F32.9 Major depressive disorder, single episode, unspecified; F43.10 Post-traumatic stress disorder, unspecified; N18.3 Chronic kidney disease, stage 3 (moderate); K74.0 Hepatic fibrosis; K14.8 Other diseases of tongue; F17.220 Nicotine dependence, chewing tobacco, uncomplicated; Y93.89 Activity, other specified

== ENCOUNTER → 2019-04-20 | Outpatient (CLI) | payer BC ==
[~2019-04-20] MED LIST changes: +CLOT10TR MT; -GLIM4TAB PO; +GLIM4TAB3 PO; +HYDR1TAB33 PO; -HYDRO50TAB PO; +LISI10TA4 PO; +MAGICMW SSP; -OMEP40CA2 PO; +OMEP40CA97 PO; +PERCOCET PO
[2019-04-20 14:08] LABS: APPEARANCE, URINE CLEAR (CLEAR); BACTERIA, URINE AUTO NEGATIVE (NEGATIVE); BILIRUBIN, URINE AUTO NEGATIVE (NEGATIVE); BLOOD, URINE BLOOD 1+ (NEGATIVE); COLOR, URINE STRAW (YELLOW); GLUCOSE, URINE (UA) AUTO 3+ mg/dL (NEGATIVE); KETONE, URINE AUTO NEGATIVE (NEGATIVE); LEUKOCYTE ESTERASE, URINE AUTO NEGATIVE (NEGATIVE); NITRITE, URINE AUTO NEGATIVE (NEGATIVE); PROTEIN, URINE AUTO 2+ mg/dL (NEGATIVE); RBC, URINE AUTO 2 /HPF (0-3); SPECIFIC GRAVITY URINE AUTO 1.023 (1.002-1.035); SQUAMOUS EPITHELIAL CELL UR AU 0 /HPF (0-6); UROBILINOGEN, URINE AUTO 0.2 mg/dL (0.0-2.0); WBC, URINE AUTO 0 /HPF (0-3)
== END ==
LOC: M SMT 09:12
PROVIDERS: ATTEND Nurse Practitioner Women's Health
DX: Z12.5 Encounter for screening for malignant neoplasm of prostate (principal); R39.12 Poor urinary stream

== ENCOUNTER 2019-05-10 05:55 | Inpatient (IN) | payer BC ==
[~2019-05-10] VITALS: Ht 157.5 cm; Wt 82.8 kg
[2019-05-10] MEDS ORDERED: ATRO0.063 INH ×2 (06:01→09:04)
[2019-05-10] MEDS ORDERED: METO1TAB7 PO (06:01)
[2019-05-10] MEDS ORDERED: ALBU8.5H INH (06:01)
[2019-05-10 06:31] LABS: BASO % 0.3 % (0.0-1.0); EOS # 0.1 10^3/uL (0.0-0.5); EOS % 0.9 % (0.0-3.0); HEMOGLOBIN 13.5 g/dl (13.5-17.5); LYMPH % 23.1 % (24.0-44.0); MEAN CORPUSCULAR HEMOGLOBIN 28.7 pg (27.0-33.0); MEAN CORPUSCULAR HGB CONC 32.9 g/dl (32.0-36.5); MONO # 0.6 10^3/uL (0.0-0.8); MONO % 6.9 % (0.0-5.0); NEUTROPHILS # 6.1 10^3/uL (1.5-8.5); NEUTROPHILS % 68.5 % (36.0-66.0); PLATELET COUNT, AUTOMATED 287 10^3/uL (150-450); RED BLOOD COUNT 4.71 10^6/uL (4.30-6.10); WHITE BLOOD COUNT 8.9 10^3/uL (4.0-10.0)
[2019-05-10 06:59] LABS: BLOOD UREA NITROGEN 19 MG/DL (7-18); CALCIUM LEVEL 9.1 MG/DL (8.8-10.2); CARBON DIOXIDE LEVEL 26 MEQ/L (21-32); CHLORIDE LEVEL 108 MEQ/L (98-107); CK-MB VALUE MASS 4.9 NG/ML (<3.6); CPK CREATINE PHOSPHOKINASE 268 U/L (39-308); GLOMERULAR FILTRATION RATE > 60.0 (>49); GLUCOSE, FASTING 235 MG/DL (70-100); MB/CK RELATIVE INDEX 1.83 (< OR =4); SODIUM LEVEL 141 MEQ/L (136-145); TROPONIN I 0.06 NG/ML (< 0.10)
[2019-05-10] MEDS ORDERED: ISOVUE-370 76% 100ML VIAL (Q9967) As Ordered ONE (07:14)
--- NOTE | 2019-05-10 07:27 | REP ---
Clinical: Chest pain. Comparison: 01/06/2019. Findings: Cardiomegaly. Diffuse bilateral opacities including left upper lobe opacity. No obvious effusion. No pneumothorax. Skeletal structures intact. Impression: Cardiomegaly. Differential diagnosis includes CHF/pulmonary edema pattern versus multifocal pneumonia. Electronically Signed by Blas Damon MD 05/10/2019 07:19 A
--- NOTE | 2019-05-10 07:31 | ECGEPIP ---
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
[2019-05-10 07:38] LABS: VENOUS BASE EXCESS -0.2 (-2.0-2.0); VENOUS HCO3 25.4 MEQ/L (23.0-27.0); VENOUS O2 SATURATION 89.5 % (60.0-80.0); VENOUS PH 7.369 UNITS (7.330-7.430); VENOUS STANDARD HCO3 24.1 MEQ/L; VENOUS TOTAL CO2 26.8 MEQ/L (24.0-28.0)
[2019-05-10 07:45] LABS: BILIRUBIN,DIRECT 0.1 MG/DL (0.0-0.2); BILIRUBIN,TOTAL 0.4 MG/DL (0.2-1.0); CK-MB VALUE MASS 4.9 NG/ML (<3.6); MB/CK RELATIVE INDEX 1.89 (< OR =4); TOTAL PROTEIN 6.7 GM/DL (6.4-8.2); TROPONIN I 0.06 NG/ML (< 0.10)
[2019-05-10] MEDS ORDERED: NS 500 ML IV ONE (07:45)
--- NOTE | 2019-05-10 07:56 | REPVR ---
PROCEDURE INFORMATION: Exam: CT Abdomen And Pelvis With Contrast Exam date and time: 05/10/2019 6:54 AM Age: 59 years old Clinical history: Abdominal pain TECHNIQUE: Imaging protocol: Computed tomography of the abdomen and pelvis with intravenous contrast. Radiation optimization: All CT scans at this facility use at least one of these dose optimization techniques: automated exposure control; mA and/or kV adjustment per patient size (includes targeted exams where dose is matched to clinical indication); or iterative reconstruction. Contrast material: ISOVUE 370; Contrast volume: 100 ml; Contrast route: IV; COMPARISON: CT ABD PELVIS W/O CONTRAST 08/06/2018 1:21 PM FINDINGS: Lungs: There is central predominant airspace disease and interlobular septal thickening in the visualized bilateral lung bases, not present on the prior exam. Pleural space: There are small, bilateral pleural effusions. Liver: There is a heterogeneous decrease in hepatic parenchymal density, consistent with fatty infiltration. Gallbladder and bile ducts: The gallbladder is normal with no stones or biliary ductal dilation. Pancreas: The pancreas is normal with no ductal dilation. Spleen: The spleen is normal. Adrenals: The adrenal glands are diffusely thickened but without discrete nodules. Kidneys and ureters: The kidneys are unremarkable. There are no ureteral stones or hydronephrosis. Stomach and bowel: The small bowel appears unremarkable. Moderate diverticulosis is present in the sigmoid and descending colon. There is no dilation or thickening of the colon. Appendix: A normal appendix is identified. Intraperitoneal space: There is no free intraperitoneal air. There is no evidence of free intraperitoneal or pelvic fluid. Vasculature: The aorta demonstrates mild atherosclerotic calcification. Lymph nodes: There are multiple small retroperitoneal lymph nodes, not pathologically enlarged by CT criteria. There is a borderline enlarged portal caval lymph node measuring 11 mm in short axis. Bladder: The bladder is unremarkable. No stones identified. Reproductive: The prostate gland and seminal vesicles are unremarkable. Bones/joints: Degenerative endplate changes are seen at multiple levels in the visualized spine. There are multiple right-sided rib fractures with callus formation which are not acute but were not present on the prior CT scan. Soft tissues: Soft tissue density in the periumbilical region is noted, similar in appearance to the prior exam. IMPRESSION: 1. Central predominant airspace disease, interlobular septal thickening, and small pleural effusions in the visualized bilateral lung bases which may be due to pulmonary edema or an infectious/inflammatory process. 2. Fatty liver. 3. Diverticulosis in the distal colon but no evidence of acute diverticulitis. Electronically signed by: Rima Napier On 05/10/2019 07:56:48 AM
--- NOTE | 2019-05-10 08:03 | REPVR ---
PROCEDURE INFORMATION: Exam: CT Angiography Chest With Contrast Exam date and time: 05/10/2019 6:54 AM Age: 59 years old Clinical history: Chest pain TECHNIQUE: Imaging protocol: Computed tomographic angiography of the chest with intravenous contrast. 3D rendering: MIP reconstructed images were created and reviewed. Radiation optimization: All CT scans at this facility use at least one of these dose optimization techniques: automated exposure control; mA and/or kV adjustment per patient size (includes targeted exams where dose is matched to clinical indication); or iterative reconstruction. Contrast material: ISOVUE 370; Contrast volume: 100 ml; Contrast route: IV; COMPARISON: CT ANGIO CHEST 01/05/2014 10:54 PM FINDINGS: Pulmonary arteries: The pulmonary arteries demonstrate mild central enlargement, consistent with mild pulmonary hypertension. The pulmonary trunk measures 3.2 cm in diameter. Assessment of the smaller pulmonary arterial branches is limited in some locations due to motion artifact. No filling defects are seen to indicate an acute pulmonary embolism. Aorta: The aorta demonstrates mild atherosclerotic calcification. No aortic aneurysm. The contrast was not timed for complete assessment of the thoracic aorta. Lungs: Motion artifact limits the assessment of the fine detail of the lungs. There is diffuse interlobular septal thickening in both lungs. There is central predominant airspace disease throughout both lungs. Pleural space: There are small, bilateral pleural effusions. Heart: The heart is mildly enlarged. Lymph nodes: There are multiple small mediastinal lymph nodes, not pathologically enlarged by CT criteria. Bones/joints: Degenerative endplate changes are seen at multiple levels in the visualized spine. There are subacute to chronic fractures with callus at the right fourth through ninth ribs, not present on the prior exam. Soft tissues: Mild gynecomastia is noted. IMPRESSION: 1. Central predominant airspace disease, interlobular septal thickening, and small pleural effusions, which are suggestive of pulmonary edema, but could represent multifocal pneumonia in the appropriate clinical setting. 2. Mild enlargement of the central pulmonary arteries indicative of mild pulmonary hypertension. 3. No evidence of acute pulmonary embolism. Assessment of the smaller branches is limited in some locations related to motion artifact. Electronically signed by: Rima Napier On 05/10/2019 08:03:25 AM
[2019-05-10] MEDS ORDERED: FUROSEMIDE 40 MG/4 ML VIAL (J1940) IV ONE (08:30)
[2019-05-10] MEDS ORDERED: FLOM0.4C39 PO (09:04)
[2019-05-10] MEDS ORDERED: VIAG100T PO (09:04)
[2019-05-10] MEDS ORDERED: LISI10TA4 PO (09:04)
[2019-05-10] MEDS ORDERED: GLUCAGON FOR INJ 1 MG VIAL (J1610) SC PRN (11:15)
[2019-05-10] MEDS ORDERED: GLUCOSE 4 GM CHEW TABLET PO PRN (11:15)
[2019-05-10] MEDS ORDERED: DEXTROSE 50% 50 ML SYRINGE IV PRN (11:15)
[2019-05-10] MEDS ORDERED: POTASSIUM CHLORIDE 10 MEQ SR TABLET PO ONE (11:15)
--- NOTE | 2019-05-10 11:15 | HPEPDOC ---
[facility] Medical History & Physical Date of Admission May 10, 2019 Date of Service: May 10, 2019 Attending Physician: CAROL WHITTEN MD History and Physical CHIEF COMPLAINT: Shortness of breath HISTORY OF PRESENT ILLNESS: 59-year-old male with past medical history of diabetes, hypertension, asthma and anxiety presents from home with worsening shortness of breath for the past 1-2 weeks. He also reports associated fatigue, joint pain, cough productive of clear sputum with scant amount of blood inter mittently. He denies any sick contacts, denies fever, but reports chills and night sweats. He also reports worsening lower extremity edema. He denies any history of heart failure. He reports significant improvement in shortness of breath after receiving Lasix in the ED. Currently denies any chest pain, nausea, vomiting or diarrhea. Patient does have chronic abdominal pain, unknown etiology, unchanged. 10 point review of system is negative except for above PAST MEDICAL HISTORY: 1. Diabetes mellitus. 2. Hypertension. 3. Asthma. 4. Anxiety PAST SURGICAL HISTORY: None SOCIAL HISTORY: ex-smoker, social Social: Use. Denies drug use FAMILY HISTORY: Positive for heart disease ALLERGIES: Please see below. HOME MEDICATIONS: Please see below. PHYSICAL EXAMINATION: VITAL SIGNS: Please see below. GENERAL: No distress, obese HEENT: Normocephalic, atraumatic, moist mucous membranes NECK: Supple CARDIOVASCULAR EXAMINATION: S1, S2, tachycardic RESPIRATORY EXAMINATION: Scattered rhonchi, no wheezing ABDOMINAL EXAMINATION: Soft, mild diffuse tenderness, ventral hernia appreciated, nondistended, positive bowel sounds EXTREMITIES: Trace lower extremity edema SKIN: No rash NEUROLOGICAL EXAMINATION: Alert and oriented 3, no focal deficits PSYCHIATRIC EXAMINATION: Calm and cooperative LABORATORY DATA: See below. IMAGING: CT chest with infiltrates concerning for infection/pulmonary edema. MICROBIOLOGY: Please see below. ASSESSMENT: 59-year-old male with past mental history diabetes, hypertension, asthma, anxiety, presents with symptoms concerning for CHF/pneumonia. PLAN: 1. Shortness of breath. Likely volume overload but associated symptoms are also concerning for infectious etiology, Lasix 40 mg IV twice a day, potassium supplementation, TTE pending, Levaquin 750 mg daily for possible underlying pneumonia, respiratory viral panel ordered, blood cultures pending, pro-calcitonin ordered. 2. Diabetes mellitus. Sliding scale insulin with fingersticks before meals and at bedtime 3. Hypertension. Continue home metoprolol 4. Asthma. Continue home meds 5. Anxiety. Continue Effexor DVT prophylaxis: Heparin subcutaneous GI prophylaxis: Home PPI Vital Signs Vital Signs Date Time Temp Pulse Resp B/P (MAP) Pulse Ox O2 Delivery O2 Flow Rate FiO2 05/10/19 10:36 107 97 05/10/19 10:30 96.8 26 153/95 (114) 05/10/19 07:21 Nasal Cannula 2.0 Laboratory Data Labs 24H Laboratory Tests 2 05/10/19 06:21: Immature Granulocyte % (Auto) 0.3, Neutrophils (%) (Auto) 68.5H, Lymphocytes (%) (Auto) 23.1L, Monocytes (%) (Auto) 6.9H, Eosinophils (%) (Auto) 0.9, Basophils (%) (Auto) 0.3, Neutrophils # (Auto) 6.1, Lymphocytes # (Auto) 2.0, Monocytes # (Auto) 0.6, Eosinophils # (Auto) 0.1, Basophils # (Auto) 0.0, Nucleated Red Blood Cells % (auto) 0.0, Anion Gap 7L, Glomerular Filtration Rate > 60.0, Calcium Level 9.1, Total Creatine Kinase 268, Creatine Kinase MB 4.9H, Creatine Kinase MB Relative Index 1.83, Troponin I 0.06 05/10/19 07:08: Total Creatine Kinase 259, Creatine Kinase MB 4.9H, Creatine Kinase MB Relative Index 1.89, Troponin I 0.06, Blood Gas Bicarbonate Standard 24.1, Venous Blood pH 7.369, Venous Blood Partial Pressure CO2 45.0, Venous Blood Partial Pressure O2 62.0H, Venous Blood Total Carbon Dioxide 26.8, Venous Blood HCO3 25.4, Venous Blood Oxygen Saturation 89.5H, Venous Blood Base Excess -0.2, Total Bilirubin 0.4, Direct Bilirubin 0.1, Aspartate Amino Transf (AST/SGOT) 36, Alanine Aminotransferase (ALT/SGPT) 72, Alkaline Phosphatase 126H, HN-Gch-C-Type Natriuretic Peptide 3727H, Total Protein 6.7, Albumin 3.0L, Albumin/Globulin Ratio 0.81L, Lipase 123 CBC/BMP Laboratory Tests 05/10/19 06:21 Home Medications Scheduled Aspirin (Aspirin EC) 81 Mg Tab, 81 MG PO DAILY Glimepiride (Glimepiride) 4 Mg Tab, 4 MG PO DAILY Ipratropium [place] (Atrovent Hfa) 12.9 Gm Hfa.aer.ad, 2 PUFF INH BID Lisinopril (Lisinopril) 10 Mg Tablet, 10 MG PO DAILY Metformin HCl (Metformin HCl) 1,000 Mg Tab, 1,000 MG PO BID Metoprolol Succinate (Metoprolol Succinate) 50 Mg Tab.er.24h, 50 MG PO DAILY Omeprazole (Omeprazole) 40 Mg Cap, 40 MG PO DAILY Tamsulosin HCl (Flomax) 0.4 Mg Capsule, 0.4 MG PO DAILY Venlafaxine HCl (Venlafaxine HCl ER) 150 Mg Cap, 300 MG PO DAILY Scheduled PRN Albuterol Sulfate (Albuterol Sulfate Hfa) 8.5 Gm Hfa.aer.ad, 2 PUFF INH Q4-6HP PRN for SHORTNESS OF BREATH Ipratropium [place] (Atrovent Hfa) 12.9 Gm Hfa.aer.ad, 2 PUFF INH Q6H PRN for SHORTNESS OF BREATH Sildenafil Citrate (Viagra) 100 Mg Tablet, 100 MG PO DAILY PRN for ERECTILE DYSFUNCTION Allergies Coded Allergies: nitroglycerin (Verified Adverse Reaction, Unknown, DROPS BLOOD PRESSURE, 05/10/19) A-FIB/CHADSVASC A-FIB History Current/History of A-Fib/PAF?: No CAROL WHITTEN MD May 10, 2019 11:15
[2019-05-10] MEDS ORDERED: LevoFLOXacin 750 MG TABLET PO ONE (11:30)
[2019-05-10 12:03] VITALS: BP 155/96
[2019-05-10] MEDS: VENLAFAXINE **XR** 75MG CAPSULE PO SCH (12:50)
[2019-05-10] MEDS: ASPIRIN 81 MG ENTERIC TAB PO SCH (12:50)
[2019-05-10] MEDS: lisinopriL 10 MG TAB PO SCH (12:50)
[2019-05-10] MEDS: OMEPRAZOLE 20 MG CAP PO SCH (12:51)
[2019-05-10] MEDS: METOPROLOL SUCC (TopROL XL) 50MG **XL** TAB PO SCH (12:51)
[2019-05-10] MEDS: TAMSULOSIN 0.4 MG CAP PO SCH (12:51)
[2019-05-10] MEDS: HumaLOG INSULIN (NovoLOG) PER UNIT SC SCH ×3 (13:23→20:01)
[2019-05-10 14:00] VITALS: BP 132/76
[2019-05-10] MEDS: HEPARIN SOD (PORCINE) 5000 UNITS/ML VIAL SC SCH ×2 (14:35→20:44)
--- NOTE | 2019-05-10 19:18 | ECHO ---
DATE OF PROCEDURE: 05/10/2019 REFERRING PHYSICIAN: Dr. Lalo Sharma INDICATION: Congestive heart failure. Height 158 cm, weight 82 kg. DIMENSIONS: IVS: 1.2 LV: 5.2 LVPW: 1.1 LA: 4.4 Aorta: 3.3 IVC: 1.8 Mitral E wave velocity: 61 A wave: 60 E prime septal: 4.1 E prime lateral: 6.3 FINDINGS: The study is of fair technical quality with somewhat challenging visualization. The patient is in sinus rhythm. Left ventricle is normal size. It is globally hypokinetic, but the basal segment of the left ventricle seems to have relatively preserved contractility and the apex appears almost akinetic. I cannot rule out presence of small left ventricle apical thrombus. Right ventricle appears grossly normal. Left atrium is mildly enlarged, the right atrium appears normal. Aortic valve is mildly sclerotic but mobility of cusps is preserved. Mitral and tricuspid valves appear normal. Pulmonic valve was not well seen. No pericardial effusion is noted. Inferior vena cava is normal size. Aortic root is normal. Aortic arch and abdominal aorta were not well seen. Doppler interrogation of aortic valve reveals no stenosis or insufficiency. There is trace mitral insufficiency and trace tricuspid insufficiency. Quality of TR jet was not sufficient to adequately estimate pulmonary artery pressure. Mitral inflow pattern and tissue Doppler imaging of mitral annulus revealed grade 2 diastolic dysfunction. CONCLUSIONS: 1. Study is of limited technical quality. 2. Normal left ventricular (LV) size with global hypokinesis, apical akinesis and overall left ventricular ejection fraction (LVEF) around 35%. Cannot rule out presence of left ventricular apical thrombus. Grade 2 diastolic dysfunction. 3. No significant valvular disease. 4. Probably normal central venous pressure. 5. Unable to estimate pulmonary artery pressure. COMMENT: Subacute bacterial endocarditis (SBE) prophylaxis is not recommended. Both ischemic and nonischemic etiology of the patient's cardiomyopathy should be considered.
[2019-05-10] MEDS: FUROSEMIDE 40 MG/4 ML VIAL (J1940) IV SCH (20:45)
[2019-05-10 22:00] VITALS: BP 130/79
[2019-05-11] MEDS: HEPARIN SOD (PORCINE) 5000 UNITS/ML VIAL SC SCH ×3 (05:13→21:24)
[2019-05-11] MEDS: LevoFLOXacin 750 MG TABLET PO SCH (05:14)
[2019-05-11 06:00] VITALS: BP 117/82
[2019-05-11 06:20] LABS: HEMATOCRIT 44.3 % (42.0-52.0); HEMOGLOBIN 14.5 g/dl (13.5-17.5); MEAN CORPUSCULAR HEMOGLOBIN 28.1 pg (27.0-33.0); MEAN CORPUSCULAR HGB CONC 32.7 g/dl (32.0-36.5); MEAN CORPUSCULAR VOLUME 85.9 fl (80.0-96.0); PLATELET COUNT, AUTOMATED 318 10^3/uL (150-450); RED BLOOD COUNT 5.16 10^6/uL (4.30-6.10); WHITE BLOOD COUNT 9.7 10^3/uL (4.0-10.0)
[2019-05-11 06:42] LABS: ALBUMIN 2.9 GM/DL (3.2-5.2); BILIRUBIN,TOTAL 0.6 MG/DL (0.2-1.0); CALCIUM LEVEL 9.4 MG/DL (8.8-10.2); CREATININE FOR GFR 1.38 MG/DL (0.70-1.30); MAGNESIUM LEVEL 1.9 MG/DL (1.8-2.4); POTASSIUM SERUM 4.1 MEQ/L (3.5-5.1); TOTAL PROTEIN 7.9 GM/DL (6.4-8.2)
[2019-05-11 07:30] VITALS: BP 128/81
[2019-05-11] MEDS: HumaLOG INSULIN (NovoLOG) PER UNIT SC SCH ×4 (08:15→20:20)
[2019-05-11] MEDS: FUROSEMIDE 40 MG/4 ML VIAL (J1940) IV SCH ×2 (08:16→21:24)
--- NOTE | 2019-05-11 08:20 | ECGEPIP ---
[facility] Test Date: 2019-05-11 Pat Name: MOIRA JAIN Department: Room: [place] [address] Gender: Male Net Application Support Specialist: EZEKIEL : 1960 Requested By: CAROL Irizarry Order Number: [id number] Reading MD: Adriel Rodriguez Measurements Intervals [place] Rate: 93 P: 50 MI: 146 QRS: 5 QRSD: 88 T: 42 QT: 392 QTc: 490 Interpretive Statements SINUS RHYTHM WITH OCCASIONAL VENTRICULAR PREMATURE COMPLEXES WITH FREQUENT S SUPRAVENTRICULAR PREMATURE COMPLEXES Prolonged QTc interval Nonspecific T wave abnormality Rate decreased from tracing done 05-10-19 Electronically Signed on 05-11-2019 8:20:31 EST by Adriel Rodriguez
[2019-05-11 09:00] VITALS: BP 127/82
[2019-05-11] MEDS: ASPIRIN 81 MG ENTERIC TAB PO SCH (10:10)
[2019-05-11] MEDS: lisinopriL 10 MG TAB PO SCH (10:12)
[2019-05-11] MEDS: TAMSULOSIN 0.4 MG CAP PO SCH (10:12)
[2019-05-11] MEDS: VENLAFAXINE **XR** 75MG CAPSULE PO SCH (10:13)
[2019-05-11] MEDS: OMEPRAZOLE 20 MG CAP PO SCH (10:14)
[2019-05-11] MEDS: METOPROLOL SUCC (TopROL XL) 50MG **XL** TAB PO SCH (10:14)
--- NOTE | 2019-05-11 18:04 | IPNPDOC ---
Date Seen The patient was seen on 05/11/19. Progress Note HISTORY OF PRESENT ILLNESS: 59-year-old male with past medical history of diabetes, hypertension, asthma and anxiety presents from home with worsening shortness of breath for the past 1-2 weeks. He also reports associated fatigue, joint pain, cough productive of clear sputum with scant amount of blood intermittently. He denies any sick contacts, denies fever, but reports chills and night sweats. He also reports worsening lower extremity edema. He denies any history of heart failure. He reports significant improvement in shortness of breath after receiving Lasix in the ED. Currently denies any chest pain, nausea, vomiting or diarrhea. Patient does have chronic abdominal pain, unknown etio logy, unchanged. 05/11/2019 Patient reports improvement in dyspnea after diuresis, continues to have significant dyspnea on exertion and cough, or other complaints. 10 point review of system is negative except for above PHYSICAL EXAMINATION: VITAL SIGNS: Please see below. GENERAL: No distress, obese HEENT: Normocephalic, atraumatic, moist mucous membranes NECK: Supple CARDIOVASCULAR EXAMINATION: S1, S2, tachycardic RESPIRATORY EXAMINATION: Scattered rhonchi, no wheezing ABDOMINAL EXAMINATION: Soft, mild diffuse tenderness, ventral hernia appreciated, nondistended, positive bowel sounds EXTREMITIES: Trace lower extremity edema SKIN: No rash NEUROLOGICAL EXAMINATION: Alert and oriented 3, no focal deficits PSYCHIATRIC EXAMINATION: Calm and cooperative LABORATORY DATA: See below. IMAGING: CT chest with infiltrates concerning for infection/pulmonary edema. MICROBIOLOGY: Please see below. ASSESSMENT: 59-year-old male with past mental history diabetes, hypertension, asthma, anxiety, presents with symptoms concerning for CHF/pneumonia. PLAN: 1. Multifocal pneumonia Clinical presentation and CT findings suggestive of multifocal pneumonia with superimposed fluid overload, continue Lasix 40 mg IV twice a day, potassium supplementation, TTE pending, Levaquin 750 mg daily, respiratory viral panel negative, blood cultures pending, pro-calcitonin elevated. 2. Diabetes mellitus. Sliding scale insulin with fingersticks before meals and at bedtime 3. Hypertension. Continue home metoprolol 4. Asthma. Continue home meds 5. Anxiety. Continue Effexor DVT prophylaxis: Heparin subcutaneous GI prophylaxis: Home PPI VS, I&O, 24H, Fishbone Vital Signs/I&O Vital Signs Date Time Temp Pulse Resp B/P (MAP) Pulse Ox O2 Delivery O2 Flow Rate FiO2 12/3/19 10:35 2.0 05/11/19 10:14 60 127/82 05/11/19 09:00 96.2 26 96 Nasal Cannula I&O- Last 24 Hours up to 6 AM 05/11/19 06:00 Intake Total 700 ml Output Total 4605 ml Balance -3905 ml Laboratory Data 24H LABS Laboratory Tests 2 05/10/19 19:56: Bedside Glucose (Misc Panel) 180H 05/11/19 05:23: Nucleated Red Blood Cells % (auto) 0.0, Anion Gap 7L, Glomerular Filtration Rate 56.0, Calcium Level 9.4, Magnesium Level 1.9, Total Bilirubin 0.6, Aspartate Amino Transf (AST/SGOT) 33, Alanine Aminotransferase (ALT/SGPT) 66, Alkaline Phosphatase 126H, Total Protein 7.9, Albumin 2.9L, Albumin/Globulin Ratio 0.58L 05/11/19 07:59: Troponin I 0.06 05/11/19 11:50: Bedside Glucose (Misc Panel) 124H 05/11/19 16:33: Bedside Glucose (Misc Panel) 289H CBC/BMP Laboratory Tests 05/11/19 05:23 Microbiology Microbiology 05/11/19 Respiratory Virus Panel (PCR) ([facility]) - Final, Complete 05/10/19 Blood Culture - Preliminary, Resulted No growth after 24 hours . All specim... CAROL WHITTEN MD May 11, 2019 18:04
[2019-05-11 22:00] VITALS: BP 126/84
[2019-05-12 04:08] LABS: HEMATOCRIT 45.1 % (42.0-52.0); HEMOGLOBIN 14.3 g/dl (13.5-17.5); MEAN CORPUSCULAR HEMOGLOBIN 27.4 pg (27.0-33.0); MEAN CORPUSCULAR HGB CONC 31.7 g/dl (32.0-36.5); MEAN CORPUSCULAR VOLUME 86.6 fl (80.0-96.0); PLATELET COUNT, AUTOMATED 314 10^3/uL (150-450); RED BLOOD COUNT 5.21 10^6/uL (4.30-6.10); WHITE BLOOD COUNT 8.4 10^3/uL (4.0-10.0)
[2019-05-12 04:46] LABS: CALCIUM LEVEL 9.6 MG/DL (8.8-10.2); CREATININE FOR GFR 1.63 MG/DL (0.70-1.30); GLOMERULAR FILTRATION RATE 46.2 (>49); PHOSPHORUS LEVEL 3.8 MG/DL (2.5-4.9); POTASSIUM SERUM 4.1 MEQ/L (3.5-5.1)
[2019-05-12] MEDS: LevoFLOXacin 750 MG TABLET PO SCH (05:25)
[2019-05-12] MEDS: HEPARIN SOD (PORCINE) 5000 UNITS/ML VIAL SC SCH ×3 (05:25→21:08)
[2019-05-12 06:00] VITALS: BP 125/86
[2019-05-12] MEDS: VENLAFAXINE **XR** 75MG CAPSULE PO SCH (09:29)
[2019-05-12] MEDS: HumaLOG INSULIN (NovoLOG) PER UNIT SC SCH ×4 (09:29→21:08)
[2019-05-12] MEDS: TAMSULOSIN 0.4 MG CAP PO SCH (09:30)
[2019-05-12] MEDS: OMEPRAZOLE 20 MG CAP PO SCH (09:30)
[2019-05-12] MEDS: ASPIRIN 81 MG ENTERIC TAB PO SCH (09:30)
[2019-05-12] MEDS: lisinopriL 10 MG TAB PO SCH (09:30)
[2019-05-12] MEDS: METOPROLOL SUCC (TopROL XL) 50MG **XL** TAB PO SCH (09:30)
[2019-05-12 14:00] VITALS: BP 96/52
[2019-05-12] MEDS ORDERED: SODIUM CHLORIDE 0.9% 1000ML IV ONE (14:45)
[2019-05-12 15:47] VITALS: BP 100/63
--- NOTE | 2019-05-12 20:20 | IPNPDOC ---
Date Seen The patient was seen on 05/12/19. Progress Note HISTORY OF PRESENT ILLNESS: 59-year-old male with past medical history of diabetes, hypertension, asthma and anxiety presents from home with worsening shortness of breath for the past 1-2 weeks. He also reports associated fatigue, joint pain, cough productive of clear sputum with scant amount of blood intermittently. He denies any sick contacts, denies fever, but reports chills and night sweats. He also reports worsening lower extremity edema. He denies any history of heart failure. He reports significant improvement in shortness of breath after receiving Lasix in the ED. Currently denies any chest pain, nausea, vomiting or diarrhea. Patient does have chronic abdominal pain, unknown etio logy, unchanged. 05/11/2019 Patient reports improvement in dyspnea after diuresis, continues to have significant dyspnea on exertion and cough, or other complaints. 05/12/2019 Patient reports significant improvement in dyspnea, having good urine output, creatinine rising, patient with low normal blood pressure, received 250 mL of normal saline. 10 point review of system is negative except for above PHYSICAL EXAMINATION: VITAL SIGNS: Please see below. GENERAL: No distress, obese HEENT: Normocephalic, atraumatic, moist mucous membranes NECK: Supple CARDIOVASCULAR EXAMINATION: S1, S2, tachycardic RESPIRATORY EXAMINATION: Scattered rhonchi, no wheezing ABDOMINAL EXAMINATION: Soft, mild diffuse tenderness, ventral hernia appreciated, nondistended, positive bowel sounds EXTREMITIES: Trace lower extremity edema SKIN: No rash NEUROLOGICAL EXAMINATION: Alert and oriented 3, no focal deficits PSYCHIATRIC EXAMINATION: Calm and cooperative LABORATORY DATA: See below. IMAGING: CT chest with infiltrates concerning for infection/pulmonary edema. MICROBIOLOGY: Please see below. ASSESSMENT: 59-year-old male with past mental history diabetes, hypertension, asthma, anxiety, presents with symptoms concerning for CHF/pneumonia. PLAN: 1. Multifocal pneumonia Clinical presentation and CT findings suggestive of multifocal pneumonia with superimposed fluid overload, has responded well to diuretics, hold off on further diuresis for now, continue Levaquin 750 mg daily, respiratory viral p henry negative, blood cultures negative, pro-calcitonin elevated. 2. Diabetes mellitus. Sliding scale insulin with fingersticks before meals and at bedtime 3. Hypertension. Continue home metoprolol 4. Asthma. Continue home meds 5. Anxiety. Continue Effexor 6. Chronic systolic and diastolic CHF. TTE showing EF of 35% with grade 2 diastolic dysfunction. DVT prophylaxis: Heparin subcutaneous GI prophylaxis: Home PPI VS, I&O, 24H, Fishbone Vital Signs/I&O Vital Signs Date Time Temp Pulse Resp B/P (MAP) Pulse Ox O2 Delivery O2 Flow Rate FiO2 05/12/19 15:47 100/63 (75) 05/12/19 14:00 97.8 81 21 90 Nasal Cannula 1.0 I&O- Last 24 Hours up to 6 AM 05/12/19 06:00 Intake Total 1200 ml Output Total 1725 ml Balance -525 ml Laboratory Data 24H LABS Laboratory Tests 2 05/12/19 03:57: Nucleated Red Blood Cells % (auto) 0.0, Anion Gap 5L, Glomerular Filtration Rate 46.2L, Calcium Level 9.6, Phosphorus Level 3.8, Magnesium Level 2.0 05/12/19 06:30: Bedside Glucose (Misc Panel) 212H 05/12/19 12:28: Bedside Glucose (Misc Panel) 137H 05/12/19 16:33: Bedside Glucose (Misc Panel) 227H CBC/BMP Laboratory Tests 05/12/19 03:57 Microbiology Microbiology 05/11/19 Respiratory Virus Panel (PCR) ([facility]UEGNIA) - Final, Complete 05/10/19 Blood Culture - Preliminary, Resulted No Growth after 48 hours. All Specime... CAROL WHITTEN MD May 12, 2019 20:20
[2019-05-12 22:00] VITALS: BP 118/77
[2019-05-13] MEDS: HEPARIN SOD (PORCINE) 5000 UNITS/ML VIAL SC SCH (05:13)
[2019-05-13] MEDS: LevoFLOXacin 750 MG TABLET PO SCH (05:13)
[2019-05-13 06:00] VITALS: BP 124/86
[2019-05-13 06:09] LABS: HEMOGLOBIN 14.5 g/dl (13.5-17.5); MEAN CORPUSCULAR HEMOGLOBIN 27.5 pg (27.0-33.0); MEAN CORPUSCULAR HGB CONC 31.5 g/dl (32.0-36.5); MEAN CORPUSCULAR VOLUME 87.1 fl (80.0-96.0); PLATELET COUNT, AUTOMATED 350 10^3/uL (150-450); RED BLOOD COUNT 5.28 10^6/uL (4.30-6.10); WHITE BLOOD COUNT 8.9 10^3/uL (4.0-10.0)
[2019-05-13 06:32] LABS: CALCIUM LEVEL 9.4 MG/DL (8.8-10.2); CREATININE FOR GFR 1.52 MG/DL (0.70-1.30); MAGNESIUM LEVEL 2.3 MG/DL (1.8-2.4); PHOSPHORUS LEVEL 3.8 MG/DL (2.5-4.9); POTASSIUM SERUM 4.1 MEQ/L (3.5-5.1)
[2019-05-13] MEDS: TAMSULOSIN 0.4 MG CAP PO SCH (08:40)
[2019-05-13] MEDS: OMEPRAZOLE 20 MG CAP PO SCH (08:40)
[2019-05-13] MEDS: ASPIRIN 81 MG ENTERIC TAB PO SCH (08:40)
[2019-05-13] MEDS: HumaLOG INSULIN (NovoLOG) PER UNIT SC SCH ×2 (08:40→11:51)
[2019-05-13] MEDS: VENLAFAXINE **XR** 75MG CAPSULE PO SCH (08:41)
[2019-05-13 10:05] VITALS: BP 109/72
[2019-05-13] MEDS: lisinopriL 10 MG TAB PO SCH (10:05)
[2019-05-13] MEDS: METOPROLOL SUCC (TopROL XL) 50MG **XL** TAB PO SCH (10:05)
[2019-05-13] MEDS ORDERED: LEVA750T7 PO (12:37)
--- NOTE | 2019-05-13 18:30 | DS.PDOC ---
Discharge Summary General Date of Admission May 10, 2019 at 10:48 Date of Discharge 05/13/2019 Attending Physician: CAROL WHITTEN MD Discharge Summary PROCEDURES PERFORMED DURING STAY: None. ADMITTING DIAGNOSES: 1. Pneumonia, acute on chronic systolic and diastolic congestive heart failure. DISCHARGE DIAGNOSES: 1. Pneumonia, acute on chronic systolic and diastolic congestive heart failure COMPLICATIONS/CHIEF COMPLAINT: Abdominal Pain Chf Htn. HISTORY OF PRESENT ILLNESS: 59-year-old male with past medical history of CHF, hypertension, was admitted for pneumonia and acute on chronic systolic and diastolic congestive heart failure. Patient was treated with IV Lasix and Le vaquin with significant improvement in dyspnea, cough and patient's ambulation. Patient evaluated and cleared by physical therapy for discharge. Patient will be discharged on Levaquin to complete 7 days of antibiotics. Patient is clinically hemodialysis for discharge and outpatient follow-up. HOSPITAL COURSE: As above. DISCHARGE MEDICATIONS: Please see below. ALLERGIES: Please see below. LABORATORY DATA: Please see below. IMAGING: CT with pneumonia, volume overload PROGNOSIS: Fair ACTIVITY: As tolerated. DIET: Cardiac DISCHARGE PLAN: Patient will follow-up with desktop support engineer and PCP 1-2 weeks DISPOSITION: 01 Home, Self-Care. DISCHARGE INSTRUCTIONS: 1. As above. DISCHARGE CONDITION: Stable. TIME SPENT ON DISCHARGE: Greater than 31 minutes. Vital Signs/I&Os Vital Signs Date Time Temp Pulse Resp B/P (MAP) Pulse Ox O2 Delivery O2 Flow Rate FiO2 05/13/19 10:05 92 109/72 05/13/19 06:00 97.3 20 91 Room Air 05/12/19 14:00 1.0 I&O- Last 24 Hours up to 6 AM 05/13/19 06:00 Intake Total 1150 ml Output Total 1100 ml Balance 50 ml Laboratory Data Labs 24H Laboratory Tests 2 05/12/19 20:58: Bedside Glucose (Misc Panel) 310H 05/13/19 05:25: Nucleated Red Blood Cells % (auto) 0.0, Anion Gap 6L, Glomerular Filtration Rate 50.0, Calcium Level 9.4, Phosphorus Level 3.8, Magnesium Level 2.3, Albumin 3.0L CBC/BMP Laboratory Tests 05/13/19 05:25 FSBS Laboratory Tests Test 05/12/19 20:58 Range/Units Bedside Glucose (Misc Panel) 310 80-115 MG/DL Microbiology Microbiology 05/11/19 Respiratory Virus Panel (PCR) ([facility]) - Final, Complete 05/10/19 Blood Culture - Preliminary, Resulted No Growth after 72 hours. All specime... Discharge Medications Scheduled Aspirin (Aspirin EC) 81 Mg Tab, 81 MG PO DAILY, (Reported) Glimepiride (Glimepiride) 4 Mg Tab, 4 MG PO DAILY, (Reported) Ipratropium [place] (Atrovent Hfa) 12.9 Gm Hfa.aer.ad, 2 PUFF INH BID, (Reported) Levofloxacin (Levaquin) 750 Mg Tablet, 750 MG PO DAILY@0600 Lisinopril (Lisinopril) 10 Mg Tablet, 10 MG PO DAILY, (Reported) Metformin HCl (Metformin HCl) 1,000 Mg Tab, 1,000 MG PO BID, (Reported) Metoprolol Succinate (Metoprolol Succinate) 50 Mg Tab.er.24h, 50 MG PO DAILY, (Reported) Omeprazole (Omeprazole) 40 Mg Cap, 40 MG PO DAILY, (Reported) Tamsulosin HCl (Flomax) 0.4 Mg Capsule, 0.4 MG PO DAILY, (Reported) Venlafaxine HCl (Venlafaxine HCl ER) 150 Mg Cap, 300 MG PO DAILY, (Reported) Scheduled PRN Albuterol Sulfate (Albuterol Sulfate Hfa) 8.5 Gm Hfa.aer.ad, 2 PUFF INH Q4-6HP PRN for SHORTNESS OF BREATH, (Reported) Ipratropium [place] (Atrovent Hfa) 12.9 Gm Hfa.aer.ad, 2 PUFF INH Q6H PRN for SHORTNESS OF BREATH, (Reported) Sildenafil Citrate (Viagra) 100 Mg Tablet, 100 MG PO DAILY PRN for ERECTILE DYSFUNCTION, (Reported) Allergies Coded Allergies: nitroglycerin (Verified Adverse Reaction, Unknown, DROPS BLOOD PRESSURE, 05/10/19) CAROL WHITTEN MD May 13, 2019 18:30
== END 2019-05-13 12:50 | disposition home or self-care (01) | DRG 194 ==
LOC: M ED 05:55 → M ED INP 10:48 → M MSPAV 12:05
PROVIDERS: ADMIT Internal Medicine; ATTEND Internal Medicine
DX: I11.0 Hypertensive heart disease with heart failure (principal); J18.9 Pneumonia, unspecified organism; E11.9 Type 2 diabetes mellitus without complications; J45.909 Unspecified asthma, uncomplicated; F41.9 Anxiety disorder, unspecified; Z87.891 Personal history of nicotine dependence; Z79.4 Long term (current) use of insulin; Z79.82 Long term (current) use of aspirin; Z79.899 Other long term (current) drug therapy; Z88.8 Allergy status to other drugs, medicaments and biological substances; I50.43 Acute on chronic combined systolic (congestive) and diastolic (congestive) heart failure

== ENCOUNTER → 2022-04-03 | Outpatient (REF) | payer MEDICARE, BC ==
[~2022-04-03] MED LIST changes: +ALBU8.5H INH; +ATRO0.063 INH; -CLIN150C14 PO; +CLIN150C17 PO; +FLOM0.4C39 PO; +GABA-282 PO; -GABA-843 PO; -GLIM4TAB3 PO; +GLIM4TAB5 PO; +LEVA750T7 PO; +LISI10TA22 PO; -LISI10TA4 PO; -LISI40TA PO; +LISI40TA4 PO; -LORA0.5T11 PO; +LORA0.5T5 PO; +METO1TAB7 PO; +OMEP40CA4 PO; -OMEP40CA97 PO; +VIAG100T PO; +VITA-243 PO; -VITA500T PO
[2022-04-03 19:27] LABS: CREATININE,RANDOM URINE 39.3 MG/DL; TOTAL PROTEIN,RANDOM URINE 47.4 MG/DL (0.0-12.0)
[2022-04-05 08:10] LABS: TOTAL PROTEIN 7.4 GM/DL (6.4-8.2)
[2022-04-05 13:02] LABS: ALBUMIN 4.03 GM/DL (3.29-5.55); ALBUMIN % 54.5 % (55.8-66.1); ALPHA-1-GLOBULIN % 4.8 % (2.9-4.9); ALPHA-1-GLOBULINS 0.36 GM/DL (0.17-0.41); ALPHA-2-GLOBULINS 0.97 GM/DL (0.42-0.99); ALPHA-2-GLOBULINS % 13.1 % (7.1-11.8); BETA-1-GLOBULINS 0.55 GM/DL (0.28-0.60); BETA-1-GLOBULINS % 7.4 % (4.7-7.2); BETA-2-GLOBULINS 0.47 GM/DL (0.19-0.55); BETA-2-GLOBULINS % 6.3 % (3.2-6.5); GAMMA GLOBULIN % 13.9 % (11.1-18.8); GAMMA GLOBULINS 1.03 GM/DL (0.65-1.58)
== END ==
LOC: M LAB REF 17:14
PROVIDERS: ATTEND Internal Medicine Nephrology
DX: N18.31 Chronic kidney disease, stage 3a (principal)

== ENCOUNTER 2025-04-11 13:29 | Observation (INO) | payer MEDICARE ==
[~2025-04-11] VITALS: Ht 154.9 cm; Wt 73.6 kg
[~2025-04-11 13:29] MED LIST changes: +ATOR80TA59 PO; +BUME1TAB3 PO; +CEPH500C PO; -CLOT10TR MT; +CLOT10TR11 MT; -FLOM0.4C39 PO; +FLUO60TA16 PO; -FLUO60TA3 PO; +GABA-1172 PO; -GABA-282 PO; -IBUP-1022 PO; +IBUP-1114 PO; +IBUP600T42 PO; +JARD1TAB PO; +LEXA1TAB PO; +LISI40TA10 PO; -LISI40TA4 PO; +LISI5TAB11 PO; +TAMS-18 PO; +THIA100T25 PO
[2025-04-11 14:26] LABS: BASO # 0.0 10^3/uL (0.0-0.2); BASO % 0.2 % (0.0-1.0); EOS # 0.2 10^3/uL (0.0-0.5); EOS % 1.3 % (0.0-3.0); LYMPH # 1.5 10^3/uL (1.5-5.0); LYMPH % 9.2 % (24.0-44.0); MONO # 1.1 10^3/uL (0.0-0.8); MONO % 6.7 % (2.0-8.0); NEUTROPHILS # 13.2 10^3/uL (1.5-8.5); NEUTROPHILS % 82.0 % (36.0-66.0); PLATELET COUNT, AUTOMATED 310 10^3/uL (150-450)
[2025-04-11 14:50] LABS: CALCIUM LEVEL 9.1 MG/DL (8.3-10.6); CARBON DIOXIDE LEVEL 20.0 MMOL/L (20-31); CHLORIDE LEVEL 108.0 MMOL/L (98-107); CREATININE FOR GFR 1.9 MG/DL (0.70-1.30); GLOMERULAR FILTRATION RATE 38.4 (>49); POTASSIUM SERUM 3.8 MMOL/L (3.5-5.1); SODIUM LEVEL 140.0 MMOL/L (136-145)
[2025-04-11 15:01] LABS: C REACTIVE PROTEIN QUANTITATIV 21.29 MG/DL (<1.0)
[2025-04-11] MEDS ORDERED: KETOROLAC 30 MG/ML 1 ML VIAL IV ONE (15:40)
[2025-04-11] MEDS: NS (Normal Saline) 0.9% 1,000 ML IV ONE (15:57)
[2025-04-11] MEDS: ACETAMINOPHEN *IV* 1,000 MG in IV 1 EA IV ONE (15:58)
[2025-04-11] MEDS: cefTRIAXone SOD 1 GM in DEXTROSE 5% (D5W) ADV/MINI-BAG 50 ML IV ONE (15:58)
[2025-04-11] MEDS ORDERED: LISI2.5T8 PO (17:14)
[2025-04-11] MEDS ORDERED: TIMO0.5S20 OD (17:14)
[2025-04-11] MEDS ORDERED: ACET250T18 PO (17:14)
[2025-04-11] MEDS ORDERED: DOXY100T PO (17:14)
[2025-04-11] MEDS ORDERED: METO1TAB32 PO (17:14)
[2025-04-11] MEDS ORDERED: BRIM0.2S13 OD (17:16)
[2025-04-11] MEDS ORDERED: GLIM2TAB29 PO (17:16)
[2025-04-11] MEDS ORDERED: LANTINJ4 SC (17:19)
[2025-04-11] MEDS ORDERED: BENA2CRE2 TOP (17:23)
[2025-04-11] MEDS ORDERED: BANO25TA PO (17:23)
[2025-04-11] MEDS ORDERED: SODI2OPD OD (17:23)
[2025-04-11] MEDS ORDERED: HOME MED LIST COMPLETE! XX SCH (17:25)
[2025-04-11] MEDS: LIDOCAINE 2% W/EPINEPHrine 20 ML VIAL **PRES FREE INJ ONE (17:42)
[2025-04-11] MEDS ORDERED: ISOVUE-370 76% 100 ML VIAL As Ordered ONE (17:51)
[2025-04-11] MEDS: MORPHINE 2 MG/ML 1 ML VIAL IV ONE (18:11)
[2025-04-11] MEDS: LR 1,000 ML IV SCH (18:38)
[2025-04-11 18:45] LABS: APPEARANCE, URINE CLEAR (CLEAR); BACTERIA, URINE AUTO NEGATIVE (NEGATIVE); BILIRUBIN, URINE AUTO NEGATIVE (NEGATIVE); BLOOD, URINE BLOOD 1+ (NEGATIVE); GLUCOSE, URINE (UA) AUTO 3+ mg/dL (NEGATIVE); KETONE, URINE AUTO NEGATIVE (NEGATIVE); LEUKOCYTE ESTERASE, URINE AUTO NEGATIVE (NEGATIVE); NITRITE, URINE AUTO NEGATIVE (NEGATIVE); PROTEIN, URINE AUTO NEGATIVE (NEGATIVE); RBC, URINE AUTO 2 /HPF (0-3); SPECIFIC GRAVITY URINE AUTO 1.007 (1.002-1.035); SQUAMOUS EPITHELIAL CELL UR AU 0 /HPF (0-6); UROBILINOGEN, URINE AUTO 0.2 mg/dL (0.0-2.0); WBC, URINE AUTO 0 /HPF (0-3)
[2025-04-11] MEDS: PIPERACILLIN/TAZOBACTAM SOD 4.5 GM in DEXTROSE 5% (D5W) ADV/MINI-BAG 50 ML IV SCH (20:16)
[2025-04-11 20:41] VITALS: BP 130/75; TEMP 97.8; O2SAT 96
[2025-04-11] MEDS: ACETAMINOPHEN 325 MG TAB PO PRN (22:45)
[2025-04-11] MEDS: acetaZOLAMIDE 250 MG TAB PO SCH (22:46)
[2025-04-11] MEDS: TIMOLOL MALEATE 0.5% OPHTH SOLN 5 ML OD SCH (22:46)
[2025-04-11] MEDS: VANCOMYCIN HCL 1,500 MG, VIAL MATE ADAPTER 1 EACH in NS 500 ML IV ONE (22:47)
[2025-04-11] MEDS: LanTUS (INSULIN GLARGINE INJ) 1 UNITS/0.01 ML SC SCH (22:47)
[2025-04-12 01:40] VITALS: BP 137/79; TEMP 98.7; O2SAT 97
[2025-04-12 04:00] VITALS: BP 138/78; TEMP 97; O2SAT 97
[2025-04-12] MEDS: VANCOMYCIN HCL 1,000 MG, VIAL MATE ADAPTER 1 EACH in NS 250 ML IV SCH ×2 (05:50→22:45)
[2025-04-12 07:08] LABS: PLATELET COUNT, AUTOMATED 251 10^3/uL (150-450)
[2025-04-12 07:20] LABS: CALCIUM LEVEL 8.1 MG/DL (8.3-10.6); CARBON DIOXIDE LEVEL 17.0 MMOL/L (20-31); CHLORIDE LEVEL 112.0 MMOL/L (98-107); CREATININE FOR GFR 1.58 MG/DL (0.70-1.30); GLOMERULAR FILTRATION RATE 47.9 (>49); POTASSIUM SERUM 3.4 MMOL/L (3.5-5.1); SODIUM LEVEL 141.0 MMOL/L (136-145)
[2025-04-12 08:00] VITALS: BP 102/53; TEMP 97; O2SAT 96
[2025-04-12 08:16] LABS: ALT/SGPT 103.0 U/L (7.0-40); AST/SGOT 39.0 U/L (<34)
[2025-04-12] MEDS: METOPROLOL SUCC. 25 MG *XL* TAB PO SCH (08:19)
[2025-04-12] MEDS ORDERED: LISINOPRIL 2.5 MG TAB PO SCH (09:00)
[2025-04-12] MEDS: ESCITALOPRAM OXALATE 10 MG TABLET PO SCH (09:08)
[2025-04-12] MEDS: GLIMEPIRIDE 2 MG TAB PO SCH (09:08)
[2025-04-12] MEDS: ATORVASTATIN 20 MG TAB PO SCH (09:09)
[2025-04-12] MEDS: HEPARIN SOD 5000 UNITS/ML 1 ML VIAL/SYRINGE SC SCH (09:10)
[2025-04-12] MEDS: BUMETANIDE 1 MG TAB PO SCH (09:14)
[2025-04-12] MEDS: POTASSIUM CHLORIDE 10MEQ SR TABLET PO ONE (11:37)
[2025-04-12 12:00] VITALS: BP 134/80; TEMP 97; O2SAT 96
[2025-04-12 12:02] LABS: MAGNESIUM LEVEL 1.8 MG/DL (1.8-2.4)
[2025-04-12 16:00] VITALS: BP 111/58; TEMP 98.1; O2SAT 97
[2025-04-12 20:18] VITALS: BP 113/69; TEMP 97.7; O2SAT 99
[2025-04-13 02:44] VITALS: BP 146/67; TEMP 98; O2SAT 97
[2025-04-13 04:17] VITALS: BP 155/73; TEMP 99; O2SAT 98
[2025-04-13 06:15] LABS: PLATELET COUNT, AUTOMATED 287 10^3/uL (150-450)
[2025-04-13 06:41] LABS: CALCIUM LEVEL 8.1 MG/DL (8.3-10.6); CARBON DIOXIDE LEVEL 19.0 MMOL/L (20-31); CHLORIDE LEVEL 110.0 MMOL/L (98-107); CREATININE FOR GFR 1.58 MG/DL (0.70-1.30); GLOMERULAR FILTRATION RATE 47.9 (>49); POTASSIUM SERUM 3.5 MMOL/L (3.5-5.1); SODIUM LEVEL 141.0 MMOL/L (136-145)
[2025-04-13 08:26] VITALS: BP 118/57; TEMP 97.6; O2SAT 97
[2025-04-13] MEDS ORDERED: ZYVO1TAB PO (11:15)
[2025-04-13] MEDS ORDERED: LANTINJ4 SC (11:15)
[2025-04-13] MEDS: LIDOCAINE W/EPINEPHrine 1% 20 ML VIAL SC ONE (13:43)
[2025-04-13 16:00] VITALS: BP 118/56; TEMP 97.7; O2SAT 98
[2025-04-13 20:00] VITALS: BP 139/60; TEMP 98.6; O2SAT 96
[2025-04-14] VITALS: BP 126/57; TEMP 98.2; O2SAT 94
[2025-04-14 04:00] VITALS: BP 130/59; TEMP 98.1; O2SAT 95
[2025-04-14 07:06] LABS: PLATELET COUNT, AUTOMATED 317 10^3/uL (150-450)
[2025-04-14 07:34] LABS: VANCOMYCIN RANDOM 12.9 UG/ML
[2025-04-14 07:35] LABS: CALCIUM LEVEL 8.5 MG/DL (8.3-10.6); CARBON DIOXIDE LEVEL 20.0 MMOL/L (20-31); CHLORIDE LEVEL 112.0 MMOL/L (98-107); CREATININE FOR GFR 1.55 MG/DL (0.70-1.30); GLOMERULAR FILTRATION RATE 49.1 (>49); POTASSIUM SERUM 3.6 MMOL/L (3.5-5.1); SODIUM LEVEL 142.0 MMOL/L (136-145)
[2025-04-14 08:00] VITALS: BP 105/65; TEMP 97.4; O2SAT 97
[2025-04-14] MEDS: VANCOMYCIN HCL 1,000 MG, VIAL MATE ADAPTER 1 EACH in NS 250 ML IV SCH (08:19)
[2025-04-14 08:26] VITALS: BP 105/65
== END 2025-04-14 12:06 ==
LOC: EDBD 13:29 → M ED 13:29 → EEVIPCON 13:30 → M ED INP 13:30 → M MSPAV 20:25
PROVIDERS: ADMIT Student in an Organized Health Care Education/Training Program; ATTEND Internal Medicine
DX: L02.13 Carbuncle of neck (principal); L02.212 Cutaneous abscess of back [any part, except buttock and flank]; B95.62 Methicillin resistant Staphylococcus aureus infection as the cause of diseases classified elsewhere; A41.9 Sepsis, unspecified organism; E11.9 Type 2 diabetes mellitus without complications; I10 Essential (primary) hypertension; Z79.2 Long term (current) use of antibiotics; Z79.4 Long term (current) use of insulin; Z79.899 Other long term (current) drug therapy; J45.909 Unspecified asthma, uncomplicated
CPT/HCPCS: 10060; 36415; 51701; 70491; 71046; 76536; 80048; 80076; 80202; 81001; 83605; 83735; 84145; 85025; 85027; 85652; 86140; 87040; 87070; 87077; 87186; 87205; 87641; 96361; 96365; 96366; 96367; 96372; 96375; 99285; G0378; J0131; J0696; J1815; J2543; J3373; J3374; Q9967